=== PATIENT | female | born 1950 | race Caucasian/White ===

== ENCOUNTER 2016-12-02 11:03 | Inpatient (IN) | payer MEDICARE, OTHER, MEDICAID ==
[~2016-12-02] VITALS: Ht 162.6 cm; Wt 67.1 kg
[~2016-12-02 11:03] MED LIST: ACIDOPHILUS100 MG PO; ALBU2.5V4 NEB; ALPR.25T PO; ALPR0.254 PO; AZIT-21 PO; BRIM5DRO OP; BRIM5DRO OS; CALC-671 PO; CALC-685 PO; CARB100C4 PO; CARB100T6 PO; CARB200T PO; CARB200T6 PO; CEFD300C PO; CEFD300C16 PO; CLIN-81 PO; COMBIGAN OU; CPR500T PO; CRAN1CAP3 PO; CRB100CT PO; CRB200T PO; DEXA4VIA39 IM; DILT90TA PO; ESCI10TA48 PO; ESCI10TA55 PO; ESCI5TAB PO; ESCT10T PO; ESOM20CA PO; ESOM20SU PO; FLDR.1T PO; FLT05NA16 PO; FLUT16SP22 NS; FNT25TD; GUAI1TBM7 PO; HYDR10TA13 PO; HYDR20TA2 PO; HYDR20TA3 PO; HYDR5TAB2 PO; IMMU10VI14 SQ; KCL10CCR PO; KETO120S5; LACT1CAP45 PO; LACT1CAP69 PO; LEVO500T2 PO; LORA10TA7 PO; LRT10T PO; LTN005OP2 OP; LTN005OP2 OU; LYRICA; MAGN-47 PO; METH80VI IM; MICRO K PO; MORPHINE IM; MULT-608 PO; MULTI VIT PO; NAPR220C PO; NAPR220T66 PO; NAPR250T2 PO; NF-CARBAMX PO; NFTRIAZ.25 PO; NITR-65 PO; NYST15CR TOP; OMEP40CA36 PO; ONDA4TAB11 PO; ONDA8TAB13 PO; ONDA8TAB6 PO; ONDN4T PO; OXYB5TAB9 PO; OXYC-272 PO; OXYC-465 PO; PHEN100T17 PO; POLY17PO23 GT; POLY17PO23 PO; POTA10CA43 PO; PRED5SOL PO; RISE150T PO; SIME40DR PO; SIME80TA6 PO; [UNRECOGNIZED DRUG - OTHER]
[2016-12-02] MEDS ORDERED: ESCI10TA PO (11:37)
[2016-12-02] MEDS ORDERED: NS IV 1000 ML 1,000 ML IV ONE ×2 (11:40→13:18)
[2016-12-02 11:47] LABS: BASOPHILS % (AUTO) 0 % (0-10); EOSINOPHILS % (AUTO) 0 % (0-10); LYMPHOCYTES # (AUTO) 1.1 X 10^3 (1.0-4.0); LYMPHOCYTES % (AUTO) 9 % (12-44); MEAN CORPUSCULAR HEMOGLOBIN 23 PG (25-34); MEAN CORPUSCULAR HGB CONC 30 G/DL (32-36); MEAN CORPUSCULAR VOLUME 76 FL (80-99); MEAN PLATELET VOLUME 9.1 FL (7.4-10.4); MONOCYTES # (AUTO) 1.2 X 10^3 (0.0-1.0); MONOCYTES % (AUTO) 10 % (0-12); NEUTROPHILS # (AUTO) 9.2 X 10^3 (1.8-7.8); NEUTROPHILS % (AUTO) 80 % (42-75); PLATELET COUNT 481 10^3/uL (130-400); RED BLOOD COUNT 4.61 10^6/uL (4.35-5.85); RED CELL DISTRIBUTION WIDTH 19.3 % (10.0-14.5); WHITE BLOOD COUNT 11.5 10^3/uL (4.3-11.0)
[2016-12-02 11:50] LABS: BILIRUBIN,URINE NEGATIVE (NEGATIVE); KETONES,URINE 2+ (NEGATIVE); NITRITE,URINE NEGATIVE (NEGATIVE); PH,URINE 6.5 (5-9); PROTEIN,URINE 3+ (NEGATIVE); UROBILINOGEN,URINE 1 MG/DL (NORMAL)
[2016-12-02 11:51] LABS: INR 1.1 (0.8-1.4); PROTHROMBIN TIME PATIENT 13.9 SEC (12.2-14.7)
[2016-12-02 12:01] LABS: WBC,URINE >100 /HPF
[2016-12-02 12:02] LABS: ALANINE AMINOTRANSFERASE 43 U/L (0-55); ALBUMIN 3.8 G/DL (3.2-4.5); ANION GAP 12 MMOL/L (5-14); ASPARTATE AMINO TRANSFERASE 33 U/L (5-34); BILIRUBIN,TOTAL 0.3 MG/DL (0.1-1.0); BLOOD UREA NITROGEN 21 MG/DL (7-18); BUN/CREATININE RATIO 33; CALCIUM 9.2 MG/DL (8.5-10.1); CARBON DIOXIDE 23 MMOL/L (21-32); CHLORIDE 102 MMOL/L (98-107); CREATININE SERUM 0.64 MG/DL (0.60-1.30); GFR ESTIMATED > 60; GLUCOSE 121 MG/DL (70-105); LEUKOCYTE ESTERASE ,URINE 3+ (NEGATIVE); POTASSIUM 4.4 MMOL/L (3.6-5.0); SODIUM 137 MMOL/L (135-145); SQUAMOUS EPITHELIAL CELL,UR RARE /HPF
--- NOTE | 2016-12-02 12:02 | Diagnostic Imaging Report ---
INDICATION: Reduced O2 sats and weakness. COMPARISON: 06/16/2016. FINDINGS: Upright portable view of the chest is obtained. Right Port-A-Cath is unchanged. Heart size is upper limits of normal. There is no central venous congestion or evidence of failure. There is no pneumothorax or pleural fluid suspected. The lungs are clear. IMPRESSION: No acute cardiopulmonary abnormality is demonstrated. Dictated by: Dictated on workstation # [id number]
[2016-12-02 12:08] LABS: TROPONIN I < 0.30 NG/ML (<0.30)
[2016-12-02] MEDS ORDERED: LEVOFLOXACIN 750 MG/150 ML IV 150 ML IV STA (13:18)
--- NOTE | 2016-12-02 13:38 | ED General ---
General Chief Complaint: General Problems/Pain Stated Complaint: WEAKNESS Nursing Triage Note: GENERALIZED WEAKNESS Nursing Sepsis Screen: Possible Sepsis Risk Source of Information: Patient Exam Limitations: No Limitations History of Present Illness Time Seen by Provider: 13:37 Initial Comments 66-year-old female patient presents to the emergency department for complaints of generalized weakness. Denies fever, nausea, vomiting. Patient has a history of hypoxic brain injury several years ago. Timing/Duration: 2-3 Days, Getting Worse Allergies and Home Medications Allergies Coded Allergies: Penicillins (Unverified Allergy, Mild, PT ABLE TO TOLERATE ROCEPHIN, 06/01) oxycodone (Unverified Allergy, Mild, 06/19/06) adhesive (Unverified Allergy, Unknown, 01/06/14) codeine (Verified Allergy, Unknown, 04/19/15) hydrocodone (Verified Allergy, Unknown, 05/31/12) lanolin (Verified Allergy, Unknown, 05/31/12) sulfamethoxazole (Verified Allergy, Unknown, 05/31/12) trimethoprim (Verified Allergy, Unknown, 05/31/12) enoxaparin (Unverified Adverse Reaction, Mild, CHANGES IN MENTATION, ) latex (Unverified Adverse Reaction, Mild, BLADDER INFECTION W/ LATEX CATHETER, 09/23/10) Uncoded Allergies: TEGADERM (Allergy, Mild, RASH, 09/23/10) HEPARIN (Adverse Reaction, Mild, CHANGES IN MENTATION, 09/23/10) Home Medications Albuterol Sulfate 0.83 Mg/Ml Solution, 2.5 MG NEB BID, (Reported) Alprazolam 0.25 Mg Tablet, 0.25 MG PO TID PRN for ANXIETY, (Reported) Brimonidine Tartrate/Timolol 5 Ml Drops, 1 DROP OS BID, (Reported) Calcium Carbonate/Vitamin D3 1 Each Tablet, 1 TAB PO DAILY, (Reported) Carbamazepine 100 Mg Tab, 200 MG PO 0500,2000, (Reported) TAKES 2 (100MG) TABLETS Carbamazepine 100 Mg Tab, 100 MG PO 1200,1700, (Reported) Cranberry Conc/Ascorbic Acid 1 Each Capsule, 1 CAP PO DAILY, (Reported) Dexamethasone Sod Phosphate 4 Mg/1 Ml Vial, 4 MG IM MONTHLY, (Reported) Diltiazem HCl 90 Mg Tablet, 90 MG PO TID, (Reported) Escitalopram Oxalate 10 Mg Tablet, 10 MG PO 1600, (Reported) Fludrocortisone Acetate 0.1 Mg Tab, 0.2 MG PO DAILY, (Reported) TAKES 2 (0.1MG) TABLETS Fluticasone Propionate 16 Gm Naspr, 2 SPRAY NS DAILY, (Reported) Guaifenesin/Dextromethorphan 1 Each Tab, 1 TAB PO 0500,1600, (Reported) Hydrocortisone 20 Mg Tablet, 20 MG PO 0800, (Reported) Hydrocortisone 20 Mg Tablet, 10 MG PO 1600, (Reported) TAKES 1/2 (20MG) TABLET Immune Globulin,Gamma(IgG) 10 Gm/50 Ml Vial, 10 GM SQ WEEK, (Reported) WEEKLY EVERY SUNDAY INFUSE OVER 1 HOUR VIA PUMP Lactobacillus Acidophilus 1 Each Capsule, 1 CAP PO 1200, (Reported) Loratadine 10 Mg Tablet, 10 MG PO DAILY, (Reported) Methylprednisolone Acetate 80 Mg/1 Ml Vial, 80 MG IM MONTHLY, (Reported) Multivitamins 1 Tab Tablet, 1 TAB PO HS, (Reported) Naproxen Sodium 220 Mg Tablet, 220 MG PO Q8H PRN for PAIN, (Reported) Omeprazole 40 Mg Capsule.dr, 40 MG PO DAILY, (Reported) Ondansetron 4 Mg Tab.rapdis, 4 MG PO Q8H PRN for NAUSEA, (Reported) Oxycodone HCl/Acetaminophen 1 Each Tablet, 1 TAB PO Q4H PRN for PAIN, (Reported) Polyethylene Glycol 17 Gm Pack, 17 GM PO DAILY, (Reported) Potassium Chloride 10 Meq Capsule.er, 10 MEQ PO QID, (Reported) Risedronate Sodium 150 Mg Tablet, 150 MG PO DAILY, (Reported) AROUND THE OF THE MONTH Constitutional: No chills, No diaphoresis, No fever, malaise, weakness EENTM: no symptoms reported Respiratory: cough, phlegm (clear sputum production), short of breath Cardiovascular: No chest pain, No palpitations Gastrointestinal: No abdominal pain, No nausea, No vomiting Genitourinary: no symptoms reported Musculoskeletal: no symptoms reported Skin: no symptoms reported Psychiatric/Neurological: No Symptoms Reported All Other Systems Reviewed Negative Unless Noted: Yes (Negative excepted noted.) Past Qnkqbtq-Gtovmt-Zpvtzw Hx Patient Social History Alcohol Use: Denies Use Recreational Drug Use: No Smoking Status: Never a Smoker 2nd Hand Smoke Exposure: No Recent Foreign Travel: No Contact w/Someone Who Travel: No Recent Infectious Disease Expo: No Recent Hopitalizations: No Immunizations Up To Date Tetanus Booster (TDap): Unknown PED Vaccines UTD: No Date of Pneumonia Vaccine: Dec 07, 2009 Date of Influenza Vaccine: Mar 09, 2016 Seasonal Allergies Seasonal Allergies: No Surgeries HX Surgeries: Yes (BRAIN, PEG TUBE, suprapubic catheter, BROKEN LEG PLATES/ SCREWS) Surgeries: Orthopedic, Tracheostomy, Urinary Diversion Respiratory Hx Respiratory Disorders: Yes (HAS CPAP-GETTING USED TO WEARING IT, CHRONIC RESPIRATORY INSUFFICIENCY) Respiratory Disorders: Pneumonia, Chronic Bronchitis, Sleep Apnea Cardiovascular Hx Cardiac Disorders: Yes Cardiac Disorders: Hypertension Neurological Hx Neurological Disorders: Yes (ANOXIC BRAIN INJURY, TRIGEMINAL NERVE PAIN) Neurological Disorders: Stroke Reproductive System : No Hx Reproductive Disorders: No Sexually Transmitted Disease: No HIV/AIDS: No Female Reproductive Disorders: Denies RELIGION DEPARTMENT CHAIR History: Menopausal Genitourinary Hx Genitourinary Disorders: Yes (SUPRAPUBIC CATHETER) Genitourinary Disorders: Bladder Infection, UTI-Chronic Gastrointestinal Hx Gastrointestinal Disorders: Yes (Dysphagia) Gastrointestinal Disorders: Gastroesophageal Reflux, Chronic Constipation Musculoskeletal Hx Musculoskeletal Disorders: Yes (L LEG FX, TOTAL CARE AFTER ANOXIC SPELL) Musculoskeletal Disorders: Osteoporosis, Fractures Endocrine Hx Endocrine Disorders: No Endocrine Disorders: Adrenal Disease HEENT HX ENT Disorders: Yes (TRIGEMINAL NERVE PROBLEMS/ SWALLOWING PROBLEMS AT TIMES) Loss of Vision: Bilateral Hearing Impairment: Denies Cancer Hx Cancer: No Psychosocial Hx Psychiatric Problems: Yes (XANAX-NOT VERY OFTEN) Behavioral Health Disorders: Anxiety, Depression Integumentary HX Skin/Integumentary Disorder: No Blood Transfusions Hx Blood Disorders: Yes (immunoglobulin deficiency) Adverse Reaction to a Blood Tr: No Reviewed Nursing Assessment Reviewed/Agree w Nursing PMH: Yes Family Medical History Significant Family History: No Pertinent Family Hx Physical Exam Vital Signs Vital Sign - Last 12Hours 12/02/16 12/02/16 11:22 11:30 Temp 98.2 Pulse 101 Resp 18 B/P (MAP) 140/82 Pulse Ox 92 O2 Delivery Nasal Cannula O2 Flow Rate 3.00 Capillary Refill : Less Than 3 Seconds General Appearance: No Apparent Distress, Chronically ill HEENT: PERRL/EOMI, Pharynx Normal Neck: Normal Inspection, Supple Respiratory: No Accessory Muscle Use, No Respiratory Distress, Expiration, Inspiration, Other (coarse BS bilaterally.) Cardiovascular: No Edema, No Murmur, Normal Peripheral Pulses, Tachycardia Gastrointestinal: Normal Bowel Sounds, Non Tender, Soft, No Distended Extremity: Normal Capillary Refill, No Pedal Edema Neurologic/Psychiatric: Alert, Oriented x3, Normal Mood/Affect Skin: Normal Color, Warm/Dry, Ecchymosis (scattered bruises noted on the BLE and BUE in various stages of healing.) Focused Exam Lactic Acid Level Progress/Results/Core Measures Results/Orders Lab Results Laboratory Tests Test 12/02/16 11:22 12/02/16 16:08 Range/Units White Blood Count 11.5 H 10.3 4.3-11.0 10^3/uL Red Blood Count 4.61 4.05 L 4.35-5.85 10^6/uL Hemoglobin 10.6 L 9.3 L 11.5-16.0 G/DL Hematocrit 35 32 L 35-52 % Mean Corpuscular Volume 76 L 78 L 80-99 FL Mean Corpuscular Hemoglobin 23 L 23 L 25-34 PG Mean Corpuscular Hemoglobin Concent 30 L 30 L 32-36 G/DL Red Cell Distribution Width 19.3 H 18.9 H 10.0-14.5 % Platelet Count 481 H 432 H 130-400 10^3/uL Mean Platelet Volume 9.1 9.3 7.4-10.4 FL Neutrophils (%) (Auto) 80 H 75 42-75 % Lymphocytes (%) (Auto) 9 L 16 12-44 % Monocytes (%) (Auto) 10 9 0-12 % Eosinophils (%) (Auto) 0 0 0-10 % Basophils (%) (Auto) 0 0 0-10 % Neutrophils # (Auto) 9.2 H 7.7 1.8-7.8 X 10^3 Lymphocytes # (Auto) 1.1 1.7 1.0-4.0 X 10^3 Monocytes # (Auto) 1.2 H 0.9 0.0-1.0 X 10^3 Eosinophils # (Auto) 0.0 0.0 0.0-0.3 10^3/uL Basophils # (Auto) 0.0 0.0 0.0-0.1 10^3/uL Prothrombin Time 13.9 12.2-14.7 SEC INR Comment 1.1 0.8-1.4 Activated Partial Thromboplast Time 22 L 24-35 SEC Urine Color YELLOW Urine Clarity VERY CLOUDY H Urine pH 6.5 5-9 Urine Specific [place] 1.015 L 1.016-1.022 Urine Protein 3+ H NEGATIVE Urine Glucose (UA) NEGATIVE NEGATIVE Urine Ketones 2+ H NEGATIVE Urine Nitrite NEGATIVE NEGATIVE Urine Bilirubin NEGATIVE NEGATIVE Urine Urobilinogen 1 NORMAL MG/DL Urine Leukocyte Esterase 3+ H NEGATIVE Urine RBC (Auto) 5+ H NEGATIVE Urine RBC 10-25 H /HPF Urine WBC >100 H /HPF Urine Squamous Epithelial Cells RARE /HPF Urine Crystals NONE /LPF Urine Bacteria MODERATE H /HPF Urine Casts NONE /LPF Urine Mucus NEGATIVE /LPF Urine Culture Indicated YES Sodium Level 137 135-145 MMOL/L Potassium Level 4.4 3.6-5.0 MMOL/L Chloride Level 102 98-107 MMOL/L Carbon Dioxide Level 23 21-32 MMOL/L Anion Gap 12 5-14 MMOL/L Blood Urea Nitrogen 21 H 7-18 MG/DL Creatinine 0.64 0.60-1.30 MG/DL Estimat Glomerular Filtration Rate > 60 BUN/Creatinine Ratio 33 Glucose Level 121 H 70-105 MG/DL Lactic Acid Level 1.13 0.50-2.00 MMOL/L Calcium Level 9.2 8.5-10.1 MG/DL Total Bilirubin 0.3 0.1-1.0 MG/DL Aspartate Amino Transf (AST/SGOT) 33 5-34 U/L Alanine Aminotransferase (ALT/SGPT) 43 0-55 U/L Alkaline Phosphatase 87 40-136 U/L Troponin I < 0.30 <0.30 NG/ML Total Protein 7.0 6.4-8.2 G/DL Albumin 3.8 3.2-4.5 G/DL Cindy Pastor - [facility] PA Cbc With Automated Diff (12/02/16 11:40) Comprehensive Metabolic Panel (12/02/16 11:40) Lactic Acid Analyzer (12/02/16 11:40) Blood Culture (12/02/16 11:40) Sputum Culture (12/02/16 11:40) Ua Culture If Indicated (12/02/16 11:40) Protime With Inr (12/02/16 11:40) Partial Thromboplastin Time (12/02/16 11:40) Chest 1 View, Ap/Pa Only (12/02/16 11:40) O2 (12/02/16 11:40) Saline Lock/Iv-Start (12/02/16 11:40) Saline Lock/Iv-Start (12/02/16 11:40) Ekg Tracing (12/02/16 11:40) Troponin I (12/02/16 11:40) Vital Signs Adult Sepsis Patie Q1HR (12/02/16 11:40) Remove Rings In Anticipation O (12/02/16 11:40) Ns Iv 1000 Ml (Sodium Chloride 0.9%) (12/02/16 11:40) Urine Culture (12/02/16 11:22) Ns Iv 1000 Ml (Sodium Chloride 0.9%) (12/02/16 13:18) Levofloxacin 750 Mg/150 Ml Iv (Levaquin (12/02/16 13:18) Albuterol/Ipra Inhalation Soln (Duoneb I (12/02/16 13:45) Svn Sm Volume Nebulizer Rt-Rfs (12/02/16 13:43) Medications Given in ED Current Medications Medications Dose Ordered Sig/Octavia Route Start Time Stop Time Status Last Admin Dose Admin Albuterol/ Ipratropium 3 ml ONCE ONCE INH 12/02/16 13:45 12/02/16 13:46 DC 12/02/16 14:08 3 ML Sodium Chloride 1,000 ml @ 0 mls/hr Q0M ONCE IV 12/02/16 13:18 12/02/16 13:19 DC 12/02/16 13:34 0 MLS/HR Vital Signs/I&O Vital Sign - Last 12Hours 12/02/16 12/02/16 12/02/16 12/02/16 14:09 14:33 16:02 16:13 Temp 98.8 98.4 Pulse 101 95 Resp 18 14 B/P (MAP) 137/84 Pulse Ox 96 95 97 O2 Flow Rate 2.00 2.00 2.00 2.00 12/02/16 12/02/16 12/02/16 12/02/16 16:42 20:28 21:00 21:31 Temp 97.3 Pulse 92 Resp 18 B/P (MAP) 124/86 Pulse Ox 92 94 95 O2 Flow Rate 2.00 2.00 2.00 12/03/16 00:00 Temp 97.4 Pulse 81 Resp 18 B/P (MAP) 95/51 Pulse Ox 90 O2 Flow Rate 2.00 Blood Pressure Mean: 102 ECG Initial ECG Impression Date: December 02, 2016 Initial ECG Impression Time: 12:17 Initial ECG Rate: 101 Initial ECG Rhythm: S.Tach Initial ECG Comparisson: Unchanged Comment Sinus tachycardia and LVH. No STEMI or arrhythmia noted. ECG reviewed by Dr. Hui. Diagnostic Imaging Diagonstic Imaging: Xray Plain Films/CT/US/NM/MRI: chest Comments FINDINGS: Upright portable view of the chest is obtained. Right Port-A-Cath is unchanged. Heart size is upper limits of normal. There is no central venous congestion or evidence of failure. There is no pneumothorax or pleural fluid suspected. The lungs are clear. IMPRESSION: No acute cardiopulmonary abnormality is demonstrated. Dictated by: Dictated on workstation # [id number] Reviewed: Reviewed by Me (radiology report reviewed) Departure Communication Time/Spoke to Admitting Phy: 14:[address] germain graciously accepts the patient to her internal medicine service for IV antibiotics, IV fluids, and further evaluation. Progress Notes All laboratory findings, diagnostic study findings, and plan for admission discussed with the patient and . Both voice understanding and agree with the treatment plan. Dr. Hui notified of plan for admission. Impression Impression: Primary Impression: UTI (urinary tract infection) Qualified Codes: N30.01 - Acute cystitis with hematuria Additional Impressions: Acute bronchitis Qualified Codes: J20.9 - Acute bronchitis, unspecified Volume depletion h/o hypoxic brain injury Disposition: 09 ADMITTED INPATIENT Condition: Stable Decision to Admit Reason: Admit from ER (General) Decision to Admit/Date: December 02, 2016 Time/Decision to Admit Time: 14:05 Departure-Patient Inst. Referrals: REBECA ESTEVEZ MD (PCP/Family) Primary Care Physician [facility] December 02, 2016 13:37
[2016-12-02] MEDS ORDERED: RT-ALBUTEROL/IPRATROPIUM 3 ML (DUONEB) VIAL INH ONE (13:45)
[2016-12-02] MEDS ORDERED: CATHETER FLUSH 10 ML SYR IV PRN (15:15)
[2016-12-02] MEDS ORDERED: ACETAMINOPHEN 325 MG TABLET/CAPLET (TYLENOL) PO PRN (15:15)
[2016-12-02] MEDS: ONDANSETRON 4 MG/2 ML (SDV) Z0FRAN IV SCH ×2 (15:28→22:14)
[2016-12-02] MEDS: NS W/KCL 20 MEQ/L 1,000 ML IV SCH (15:29)
[2016-12-02 16:13] VITALS: BP 137/84
[2016-12-02] MEDS ORDERED: RT-ALBUTEROL SULF 2.5 MG/3 ML PRE-MIX VIAL IH PRN (16:45)
[2016-12-02 16:51] LABS: BASOPHILS % (AUTO) 0 % (0-10); EOSINOPHILS % (AUTO) 0 % (0-10); LYMPHOCYTES # (AUTO) 1.7 X 10^3 (1.0-4.0); LYMPHOCYTES % (AUTO) 16 % (12-44); MEAN CORPUSCULAR HEMOGLOBIN 23 PG (25-34); MEAN CORPUSCULAR HGB CONC 30 G/DL (32-36); MEAN CORPUSCULAR VOLUME 78 FL (80-99); MEAN PLATELET VOLUME 9.3 FL (7.4-10.4); MONOCYTES # (AUTO) 0.9 X 10^3 (0.0-1.0); MONOCYTES % (AUTO) 9 % (0-12); NEUTROPHILS # (AUTO) 7.7 X 10^3 (1.8-7.8); NEUTROPHILS % (AUTO) 75 % (42-75); PLATELET COUNT 432 10^3/uL (130-400); RED BLOOD COUNT 4.05 10^6/uL (4.35-5.85); RED CELL DISTRIBUTION WIDTH 18.9 % (10.0-14.5); WHITE BLOOD COUNT 10.3 10^3/uL (4.3-11.0)
[2016-12-02] MEDS ORDERED: ALPRAZolam 0.25 MG (XANAX) TAB PO PRN (17:15)
[2016-12-02] MEDS ORDERED: PATIENT MAY USE OWN MEDS, ALL MC SCH (17:15)
[2016-12-02] MEDS: CARBAMAZEPINE 100 MG PO SCH ×2 (17:46→21:00)
[2016-12-02] MEDS: oxyCODONE/APAP 10/325MG (PERCOCET 10) TABLET PO PRN (19:00)
[2016-12-02 20:28] VITALS: BP 124/86
[2016-12-02] MEDS: DILTIAZEM 30 MG (CARDIZEM) TAB PO SCH (21:00)
[2016-12-02] MEDS: PROMETHAZINE INJ 25 MG/ML (PHENERGAN) AMP IVP PRN (21:01)
[2016-12-02] MEDS: TIMOLOL OS SCH (21:01)
[2016-12-02] MEDS: BRIMONIDINE TARTRATE OS SCH (21:01)
[2016-12-02] MEDS: RT-ALBUTEROL SULF 2.5 MG/3 ML PRE-MIX VIAL IH SCH (21:29)
[2016-12-03] VITALS: BP 95/51
[2016-12-03] MEDS: NS W/KCL 20 MEQ/L 1,000 ML IV SCH ×5 (01:58→23:59)
[2016-12-03 04:00] VITALS: BP 101/61
[2016-12-03] MEDS: CARBAMAZEPINE 100 MG PO SCH ×4 (04:39→20:24)
[2016-12-03] MEDS ORDERED: [UNRECOGNIZED DRUG - OTHER] PO SCH (05:00)
[2016-12-03] MEDS ORDERED: DEXTROMETHORPHAN PO SCH (05:00)
[2016-12-03] MEDS ORDERED: GUAIFENESIN PO SCH (05:00)
[2016-12-03 05:34] LABS: ALANINE AMINOTRANSFERASE 34 U/L (0-55); ALBUMIN 2.9 G/DL (3.2-4.5); ANION GAP 8 MMOL/L (5-14); ASPARTATE AMINO TRANSFERASE 29 U/L (5-34); BILIRUBIN,TOTAL 0.2 MG/DL (0.1-1.0); BLOOD UREA NITROGEN 13 MG/DL (7-18); BUN/CREATININE RATIO 27; CALCIUM 8.2 MG/DL (8.5-10.1); CARBON DIOXIDE 24 MMOL/L (21-32); CHLORIDE 110 MMOL/L (98-107); CREATININE SERUM 0.49 MG/DL (0.60-1.30); GFR ESTIMATED > 60; GLUCOSE 85 MG/DL (70-105); POTASSIUM 3.9 MMOL/L (3.6-5.0); SODIUM 142 MMOL/L (135-145); TOTAL PROTEIN 5.6 G/DL (6.4-8.2)
[2016-12-03] MEDS: ONDANSETRON 4 MG/2 ML (SDV) Z0FRAN IV SCH (06:09)
[2016-12-03] MEDS: RT-ALBUTEROL SULF 2.5 MG/3 ML PRE-MIX VIAL IH SCH ×3 (07:45→19:45)
[2016-12-03 08:00] VITALS: BP 160/90
[2016-12-03] MEDS: PROMETHAZINE INJ 25 MG/ML (PHENERGAN) AMP IVP PRN ×2 (08:34→17:30)
[2016-12-03] MEDS: TIMOLOL OS SCH ×2 (08:34→20:26)
[2016-12-03] MEDS: BRIMONIDINE TARTRATE OS SCH ×2 (08:34→20:26)
[2016-12-03] MEDS: DILTIAZEM 30 MG (CARDIZEM) TAB PO SCH ×3 (08:35→20:25)
[2016-12-03] MEDS ORDERED: LEVOFLOXACIN 750 MG/D5W 150 ML PRE-MIX IV SCH (11:00)
--- NOTE | 2016-12-03 11:56 | History & Physical-Hospitalist ---
HPI History of Present Illness: HPI/Chief Complaint CC: Hypoxia with UTI and bronchitis HPI: This is a 66-year-old white female of Dr. Still in [place] that is known to this examiner from prior hospitalizations on the hospitalist service due to UTI, sepsis and recurrent bronchitis. She presents the emergency room with altered mental status and decreased O2 saturation and mildly low blood pressure for the patient so she was worked up and found to have acute bronchitis on chronic bronchitis and acute on chronic UTI so she was placed empirically on antibiotics and placed on supportive care. She has a long-standing history of severe debility following choking on a hot dog many years ago and has been very debilitated and disabled since that time. She obtains care at home 29/01 and her is very involved in her care. She reports that she does have some mild pain in her back so I will initiate fentanyl IV as needed considering her allergies include codeine, hydrocodone and oxycodone. She has had multiple resistant bacteria causing UTIs and she is declining in such a way that she is having difficulty clearing her own secretions now. On Sunday she had her catheter changed, port flushed, infusion by Dr. Vera and a steroid shot. Currently I review all of her home medications resume most and will monitor closely in the meantime but I did note she is a full code and it is concerning considering her overall debilitated status we will need to child welfare counselor the family on that and maintain reasonable and supportive care. Source: patient, caregiver Exam Limitations: clinical condition Date Seen 12/03/16 Attending Physician Maite Burt John M MD Referring Physician Date of Admission December 02, 2016 at 14:10 Home Medications & Allergies Home Medications Reviewed patient Home Medication Reconciliation Form Allergies Allergies Coded Allergies Penicillins (Unverified Allergy, Mild, PT ABLE TO TOLERATE ROCEPHIN, 06/01/12) oxycodone (Unverified Allergy, Mild, 06/19/06) adhesive (Unverified Allergy, Unknown, 01/06/14) codeine (Verified Allergy, Unknown, 04/19/15) hydrocodone (Verified Allergy, Unknown, 05/31/12) lanolin (Verified Allergy, Unknown, 05/31/12) sulfamethoxazole (Verified Allergy, Unknown, 05/31/12) trimethoprim (Verified Allergy, Unknown, 05/31/12) enoxaparin (Unverified Adverse Reaction, Mild, CHANGES IN MENTATION, 09/23/10) latex (Unverified Adverse Reaction, Mild, BLADDER INFECTION W/ LATEX CATHETER , 09/23/10) Uncoded Allergies TEGADERM ( Allergy, Mild, RASH, 09/23/10) HEPARIN ( Adverse Reaction, Mild, CHANGES IN MENTATION, 09/23/10) Past Ibfricd-Kgfbhr-Hqokhj Hx Patient Social History Marrital Status: Employed/Student: retired Alcohol Use: Denies Use Recreational Drug Use: No Smoking Status: Never a Smoker 2nd Hand Smoke Exposure: No Physical Abuse Screen: No Sexual Abuse: No Recent Foreign Travel: No Contact w/other who traveled: No Recent Hopitalizations: No Recent Infectious Disease Expo: No Immunizations Up To Date Tetanus Booster (TDap): Unknown Date of Pneumonia Vaccine: Dec 07, 2009 Date of Influenza Vaccine: Mar 09, 2016 Seasonal Allergies Seasonal Allergies: No Surgeries HX Surgeries: Yes (BRAIN, PEG TUBE, suprapubic catheter, BROKEN LEG PLATES/ SCREWS) Surgeries: Orthopedic, Tracheostomy, Urinary Diversion Respiratory Hx Respiratory Disorders: Yes (HAS CPAP-GETTING USED TO WEARING IT, CHRONIC RESPIRATORY INSUFFICIENCY) Respiratory Disorders: Chronic Bronchitis, COPD, Pneumonia, Sleep Apnea Cardiovascular Hx Cardiovascular Disorders: Yes Cardiac Disorders: Hypertension Neurological Hx Neurological Disorders: Yes (ANOXIC BRAIN INJURY, TRIGEMINAL NERVE PAIN) Neurological Disorders: Stroke Reproductive System : No Hx Reproductive Disorders: No Sexually Transmitted Disease: No HIV/AIDS: No Female Reproductive Disorders: Denies Genitourinary Hx Genitourinary Disorders: Yes (SUPRAPUBIC CATHETER) Genitourinary Disorders: Bladder Infection, Neurogenic Bladder, UTI-Chronic Gastrointestinal Hx Gastrointestinal Disorders: Yes (Dysphagia) Gastrointestinal Disorders: Gastroesophageal Reflux, Chronic Constipation Musculoskeletal Hx Musculoskeletal Disorders: Yes (L LEG FX, TOTAL CARE AFTER ANOXIC SPELL) Musculoskeletal Disorders: Osteoporosis, Fractures Endocrine Hx Endocrine Disorders: No Endocrine Disorders: Adrenal Disease HEENT HX ENT Disorders: Yes (TRIGEMINAL NERVE PROBLEMS/ SWALLOWING PROBLEMS AT TIMES) Loss of Vision: Bilateral Hearing Impairment: Denies Cancer Hx Cancer: No Psychosocial Hx Psychiatric Problems: Yes (XANAX-NOT VERY OFTEN) Behavioral Health Disorders: Anxiety, Depression Integumentary HX Skin/Integumentary Disorder: No Blood Transfusions Hx Blood Disorders: Yes (immunoglobulin deficiency) Adverse Reaction to a Blood Tr: No Reviewed Nursing Assessment Reviewed/Agree w Nursing PMH: Yes Family Medical History Significant Family History: No Pertinent Family Hx Review of Systems Constitutional: see HPI, dizziness, weakness EENTM: no symptoms reported Respiratory: cough, short of breath Cardiovascular: no symptoms reported Gastrointestinal: nausea Genitourinary: no symptoms reported Musculoskeletal: back pain Skin: no symptoms reported Psychiatric/Neurological: Depressed All Other Systems Reviewed Negative Unless Noted: Yes Physical Exam Physical Exam Vital Signs Vital Sign - Last 12Hours 12/02/16 12/02/16 11:22 11:30 Temp 98.2 Pulse 101 Resp 18 B/P (MAP) 140/82 Pulse Ox 92 O2 Delivery Nasal Cannula O2 Flow Rate 3.00 Capillary Refill : Less Than 3 Seconds General Appearance: No Apparent Distress, WD/WN, Chronically ill, Other (neck leaned over to left side) Eyes: Bilateral Eye Normal Inspection, Bilateral Eye PERRL HEENT: PERRL/EOMI, Normal ENT Inspection, Pharynx Normal Neck: Normal Inspection, Non Tender, Supple, Carotid Bruit, Other (neck is contracted) Respiratory: Chest Non Tender, No Accessory Muscle Use, No Respiratory Distress , Crackles, Decreased Breath Sounds, Wheezing, Other (upper respiratory crackles ) Cardiovascular: Regular Rate, Rhythm, No Edema, No Gallop, No JVD, No Murmur, Normal Peripheral Pulses Gastrointestinal: Normal Bowel Sounds, No Organomegaly, No Pulsatile Mass, Non Tender, Soft Back: Normal Inspection, No CVA Tenderness, No Vertebral Tenderness Extremity: Normal Capillary Refill, Normal Inspection, Normal Range of Motion, Non Tender, No Calf Tenderness, No Pedal Edema Neurologic/Psychiatric: Alert, Oriented x3, No Motor/Sensory Deficits, Depressed Affect Skin: Normal Color, Warm/Dry Lymphatic: No Adenopathy Results Results/Procedures Lab Laboratory Tests 12/02/16 11:22 12/02/16 16:08 12/03/16 04:37 Assessment/Plan Admission Diagnosis Assessment: Altered mental status with hypoxia and SIRS Hx of resistant organism UTI with suprapubic catheter 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 Clinical Quality Measures DVT/VTE Risk/Contraindication: Risk Factor Score Per Nursin RFS Level Per Nursing on Admit: 4+=Very High MAITE BURT DO December 03, 2016 11:56
[2016-12-03 12:00] VITALS: BP 164/95
[2016-12-03] MEDS: fentaNYL INJECTION 100 MCG/2 ML AMP IVP PRN ×3 (12:14→16:46)
[2016-12-03] MEDS ORDERED: NAPROXEN 250 MG (NAPROSYN) TABLET PO PRN (12:30)
[2016-12-03] MEDS: LACTOBACILLUS Acidoph/Bulgar (LACTINEX/FLORANEX) TAB PO SCH (13:10)
[2016-12-03] MEDS: MEROPENEM 500 MG in NS (IVPB) 100 ML IV SCH ×3 (13:10→23:59)
[2016-12-03] MEDS: ONDANSETRON 4 MG (ZOFRAN) ORAL DISSOLVE TAB PO PRN (14:05)
[2016-12-03 16:10] VITALS: BP 108/74
[2016-12-03] MEDS: HYDROCORTISONE 20 MG (CORTEF) TAB PO SCH (16:46)
[2016-12-03] MEDS: KCL 10 MEQ TAB (MICRO K) PO SCH ×2 (16:46→20:25)
[2016-12-03 19:40] VITALS: BP 129/69
[2016-12-03] MEDS: MULTIVIT W/MINERALS TAB (THERAGRAN M) PO SCH (20:26)
[2016-12-03] MEDS ORDERED: RT-ALBUTEROL SULF 2.5 MG/3 ML PRE-MIX VIAL IH SCH (21:00)
[2016-12-04] VITALS (7 sets, daily range): BP systolic 101–158; BP diastolic 62–87
[2016-12-04] MEDS: PANTOPRAZOLE 40 MG (PROTONIX) TAB PO SCH (05:43)
[2016-12-04] MEDS: MEROPENEM 500 MG in NS (IVPB) 100 ML IV SCH ×3 (05:43→17:03)
[2016-12-04] MEDS: CARBAMAZEPINE 100 MG PO SCH ×4 (05:44→19:26)
[2016-12-04 06:22] LABS: BASOPHILS % (AUTO) 0 % (0-10); EOSINOPHILS # (AUTO) 0.1 10^3/uL (0.0-0.3); EOSINOPHILS % (AUTO) 1 % (0-10); LYMPHOCYTES # (AUTO) 2.3 X 10^3 (1.0-4.0); LYMPHOCYTES % (AUTO) 21 % (12-44); MEAN CORPUSCULAR HEMOGLOBIN 23 PG (25-34); MEAN CORPUSCULAR HGB CONC 30 G/DL (32-36); MEAN CORPUSCULAR VOLUME 79 FL (80-99); MEAN PLATELET VOLUME 8.4 FL (7.4-10.4); MONOCYTES # (AUTO) 0.8 X 10^3 (0.0-1.0); MONOCYTES % (AUTO) 8 % (0-12); NEUTROPHILS # (AUTO) 7.5 X 10^3 (1.8-7.8); NEUTROPHILS % (AUTO) 70 % (42-75); PLATELET COUNT 375 10^3/uL (130-400); RED BLOOD COUNT 3.86 10^6/uL (4.35-5.85); RED CELL DISTRIBUTION WIDTH 19.2 % (10.0-14.5); WHITE BLOOD COUNT 10.8 10^3/uL (4.3-11.0)
[2016-12-04 06:43] LABS: ALANINE AMINOTRANSFERASE 49 U/L (0-55); ALBUMIN 2.9 G/DL (3.2-4.5); ANION GAP 7 MMOL/L (5-14); ASPARTATE AMINO TRANSFERASE 43 U/L (5-34); BILIRUBIN,TOTAL 0.2 MG/DL (0.1-1.0); BLOOD UREA NITROGEN 13 MG/DL (7-18); BUN/CREATININE RATIO 25; CALCIUM 8.1 MG/DL (8.5-10.1); CARBON DIOXIDE 24 MMOL/L (21-32); CHLORIDE 111 MMOL/L (98-107); CREATININE SERUM 0.51 MG/DL (0.60-1.30); GFR ESTIMATED > 60; GLUCOSE 87 MG/DL (70-105); POTASSIUM 3.6 MMOL/L (3.6-5.0); SODIUM 142 MMOL/L (135-145); TOTAL PROTEIN 5.6 G/DL (6.4-8.2)
[2016-12-04] MEDS: RT-ALBUTEROL SULF 2.5 MG/3 ML PRE-MIX VIAL IH SCH ×3 (07:17→21:06)
[2016-12-04] MEDS: NS W/KCL 20 MEQ/L 1,000 ML IV SCH (07:56)
[2016-12-04] MEDS: TIMOLOL OS SCH ×2 (08:09→21:46)
[2016-12-04] MEDS: BRIMONIDINE TARTRATE OS SCH ×2 (08:09→21:46)
[2016-12-04] MEDS: HYDROCORTISONE 20 MG (CORTEF) TAB PO SCH ×2 (08:10→15:54)
[2016-12-04] MEDS: POLYETHYLENE GLYCOL 17 GM (MIRALAX) PACK PO SCH (08:10)
[2016-12-04] MEDS: CALCIUM CARB + VIT D 600 MG (CALCARB + D) TAB PO SCH (08:10)
[2016-12-04] MEDS: DILTIAZEM 30 MG (CARDIZEM) TAB PO SCH ×3 (08:10→21:46)
[2016-12-04] MEDS: fentaNYL INJECTION 100 MCG/2 ML AMP IVP PRN ×6 (08:10→19:26)
[2016-12-04] MEDS: ONDANSETRON 4 MG (ZOFRAN) ORAL DISSOLVE TAB PO PRN (08:11)
[2016-12-04] MEDS: KCL 10 MEQ TAB (MICRO K) PO SCH ×4 (08:11→21:46)
[2016-12-04] MEDS: LORATADINE (CLARITIN) 10 MG TAB PO SCH (08:11)
[2016-12-04] MEDS: FLUDROCORTISONE 0.1 MG (FLORINEF) TAB PO SCH (08:11)
[2016-12-04] MEDS: FLUTICASONE NASAL SPRAY (FLONASE) 16 GM BTL NS SCH (08:17)
--- NOTE | 2016-12-04 10:19 | Progress Note-Hospitalist ---
Progress Note HPI/CC on Admission CC: Hypoxia with UTI and bronchitis HPI: This is a 66-year-old white female of Dr. Still in [place] that is known to this examiner from prior hospitalizations on the hospitalist service due to UTI, sepsis and recurrent bronchitis. She presents the emergency room with altered mental status and decreased O2 saturation and mildly low blood pressure for the patient so she was worked up and found to have acute bronchitis on chronic bronchitis and acute on chronic UTI so she was placed empirically on antibiotics and placed on supportive care. She has a long-standing history of severe debility following choking on a hot dog many years ago and has been very debilitated and disabled since that time. She obtains care at home 29/01 and her is very involved in her care. She reports that she does have some mild pain in her back so I will initiate fentanyl IV as needed considering her allergies include codeine, hydrocodone and oxycodone. She has had multiple resistant bacteria causing UTIs and she is declining in such a way that she is having difficulty clearing her own secretions now. On Sunday she had her catheter changed, port flushed, infusion by Dr. Vera and a steroid shot. Currently I review all of her home medications resume most and will monitor closely in the meantime but I did note she is a full code and it is concerning considering her overall debilitated status we will need to certified alcohol and drug counselor the family on that and maintain reasonable and supportive care. Progress Notes/Assess & Plan Date Seen 12/04/16 Admission Dx/Process Assessment: Altered mental status with hypoxia and SIRS Hx of resistant organism UTI with suprapubic catheter History of anoxic brain injury after she choked on a hot dog in 2009 and has been bedridden and wheelchair bound since that time Obstructive sleep apnea on CPAP therapy Leukocytosis Fever Trigeminal neuralgia Diagonsis/Assessment & Plan Patient doing a little better but overall decline is noted Nurse actually heard her say that she would like to be just kept comfortable and allowed to pass that her told the nurse that he was just not ready at this time Full code is concerning considering the futility of aggressive treatment like intubation if that should occur and respiratory failure status Lungs continuously sound worse but overall's no significant change Reviewed urine culture and had placed her on meropenem yesterday so discontinue the Levaquin due to resistance and enterococcus should be sensitive to penicillin sensitive enterococcus No fever, vital signs stable, chronically ill, alert, oriented 3 Regular rate and rhythm, coarseness throughout all banks No edema Laboratory Tests 12/04/16 06:10 Assessment: Altered mental status with hypoxia and SIRS improved with aggressive treatment Hx of resistant organism UTI with suprapubic catheter added Meropenem yesterday and will DC Levaquin today since resistance pattern History of anoxic brain injury after she choked on a hot dog in 2009 and has been bedridden and wheelchair bound since that time Obstructive sleep apnea on CPAP therapy Leukocytosis Fever Trigeminal neuralgia 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
[2016-12-04] MEDS: LACTOBACILLUS Acidoph/Bulgar (LACTINEX/FLORANEX) TAB PO SCH (11:43)
[2016-12-04] MEDS: oxyCODONE/APAP 10/325MG (PERCOCET 10) TABLET PO PRN (13:00)
[2016-12-04] MEDS: MULTIVIT W/MINERALS TAB (THERAGRAN M) PO SCH (21:47)
[2016-12-05] MEDS: MEROPENEM 500 MG in NS (IVPB) 100 ML IV SCH ×3 (00:01→12:03)
[2016-12-05 03:59] VITALS: BP 156/90
[2016-12-05] MEDS: CARBAMAZEPINE 100 MG PO SCH ×2 (05:58→12:04)
[2016-12-05] MEDS: PANTOPRAZOLE 40 MG (PROTONIX) TAB PO SCH (06:04)
[2016-12-05 06:08] LABS: BASOPHILS % (AUTO) 0 % (0-10); EOSINOPHILS # (AUTO) 0.1 10^3/uL (0.0-0.3); EOSINOPHILS % (AUTO) 1 % (0-10); LYMPHOCYTES # (AUTO) 2.4 X 10^3 (1.0-4.0); LYMPHOCYTES % (AUTO) 23 % (12-44); MEAN CORPUSCULAR HEMOGLOBIN 23 PG (25-34); MEAN CORPUSCULAR HGB CONC 29 G/DL (32-36); MEAN CORPUSCULAR VOLUME 79 FL (80-99); MEAN PLATELET VOLUME 8.7 FL (7.4-10.4); MONOCYTES # (AUTO) 0.9 X 10^3 (0.0-1.0); MONOCYTES % (AUTO) 8 % (0-12); NEUTROPHILS # (AUTO) 7.1 X 10^3 (1.8-7.8); NEUTROPHILS % (AUTO) 68 % (42-75); PLATELET COUNT 390 10^3/uL (130-400); RED BLOOD COUNT 3.95 10^6/uL (4.35-5.85); RED CELL DISTRIBUTION WIDTH 19.2 % (10.0-14.5); WHITE BLOOD COUNT 10.5 10^3/uL (4.3-11.0)
[2016-12-05 06:35] LABS: ALANINE AMINOTRANSFERASE 48 U/L (0-55); ALBUMIN 2.9 G/DL (3.2-4.5); ANION GAP 8 MMOL/L (5-14); ASPARTATE AMINO TRANSFERASE 39 U/L (5-34); BILIRUBIN,TOTAL 0.2 MG/DL (0.1-1.0); BLOOD UREA NITROGEN 12 MG/DL (7-18); BUN/CREATININE RATIO 24; CALCIUM 8.8 MG/DL (8.5-10.1); CARBON DIOXIDE 28 MMOL/L (21-32); CHLORIDE 106 MMOL/L (98-107); CREATININE SERUM 0.49 MG/DL (0.60-1.30); GFR ESTIMATED > 60; GLUCOSE 86 MG/DL (70-105); POTASSIUM 3.4 MMOL/L (3.6-5.0); SODIUM 142 MMOL/L (135-145); TOTAL PROTEIN 5.8 G/DL (6.4-8.2)
[2016-12-05] MEDS: RT-ALBUTEROL SULF 2.5 MG/3 ML PRE-MIX VIAL IH SCH (06:47)
[2016-12-05] MEDS: fentaNYL INJECTION 100 MCG/2 ML AMP IVP PRN (07:00)
[2016-12-05] MEDS: ONDANSETRON 4 MG (ZOFRAN) ORAL DISSOLVE TAB PO PRN (07:47)
[2016-12-05 08:00] VITALS: BP 164/90
--- NOTE | 2016-12-05 09:16 | Pulmonary Consultation ---
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 She was dx with acute bronchitis and UTI. CXR is clear She was placed on emperic Abx and admitted to 4th floor. She has had many prior episodes however she has been doing much better since starting IVIG. I am consulted for pulmonary management. Allergies and Home Medications Allergies Coded Allergies: Penicillins (Unverified Allergy, Mild, PT ABLE TO TOLERATE ROCEPHIN, 06/01) oxycodone (Unverified Allergy, Mild, 06/19/06) adhesive (Unverified Allergy, Unknown, 01/06/14) codeine (Verified Allergy, Unknown, 04/19/15) hydrocodone (Verified Allergy, Unknown, 05/31/12) lanolin (Verified Allergy, Unknown, 05/31/12) sulfamethoxazole (Verified Allergy, Unknown, 05/31/12) trimethoprim (Verified Allergy, Unknown, 05/31/12) enoxaparin (Unverified Adverse Reaction, Mild, CHANGES IN MENTATION, ) latex (Unverified Adverse Reaction, Mild, BLADDER INFECTION W/ LATEX CATHETER, 09/23/10) Uncoded Allergies: TEGADERM (Allergy, Mild, RASH, 09/23/10) HEPARIN (Adverse Reaction, Mild, CHANGES IN MENTATION, 09/23/10) Home Medications Albuterol Sulfate 0.83 Mg/Ml Solution, 2.5 MG NEB BID, (Reported) Alprazolam 0.25 Mg Tablet, 0.25 MG PO TID PRN for ANXIETY, (Reported) Brimonidine Tartrate/Timolol 5 Ml Drops, 1 DROP OS BID, (Reported) Calcium Carbonate/Vitamin D3 1 Each Tablet, 1 TAB PO DAILY, (Reported) Carbamazepine 100 Mg Tab, 200 MG PO 0500,2000, (Reported) TAKES 2 (100MG) TABLETS Carbamazepine 100 Mg Tab, 100 MG PO 1200,1700, (Reported) Cranberry Conc/Ascorbic Acid 1 Each Capsule, 1 CAP PO DAILY, (Reported) Dexamethasone Sod Phosphate 4 Mg/1 Ml Vial, 4 MG IM MONTHLY, (Reported) Diltiazem HCl 90 Mg Tablet, 90 MG PO TID, (Reported) Escitalopram Oxalate 10 Mg Tablet, 10 MG PO 1600, (Reported) Fludrocortisone Acetate 0.1 Mg Tab, 0.2 MG PO DAILY, (Reported) TAKES 2 (0.1MG) TABLETS Fluticasone Propionate 16 Gm Naspr, 2 SPRAY NS DAILY, (Reported) Guaifenesin/Dextromethorphan 1 Each Tab, 1 TAB PO 0500,1600, (Reported) Hydrocortisone 20 Mg Tablet, 20 MG PO 0800, (Reported) Hydrocortisone 20 Mg Tablet, 10 MG PO 1600, (Reported) TAKES 1/2 (20MG) TABLET Immune Globulin,Gamma(IgG) 10 Gm/50 Ml Vial, 10 GM SQ WEEK, (Reported) WEEKLY EVERY SUNDAY INFUSE OVER 1 HOUR VIA PUMP Lactobacillus Acidophilus 1 Each Capsule, 1 CAP PO 1200, (Reported) Loratadine 10 Mg Tablet, 10 MG PO DAILY, (Reported) Methylprednisolone Acetate 80 Mg/1 Ml Vial, 80 MG IM MONTHLY, (Reported) Multivitamins 1 Tab Tablet, 1 TAB PO HS, (Reported) Naproxen Sodium 220 Mg Tablet, 220 MG PO Q8H PRN for PAIN, (Reported) Omeprazole 40 Mg Capsule.dr, 40 MG PO DAILY, (Reported) Ondansetron 4 Mg Tab.rapdis, 4 MG PO Q8H PRN for NAUSEA, (Reported) Oxycodone HCl/Acetaminophen 1 Each Tablet, 1 TAB PO Q4H PRN for PAIN, (Reported) Polyethylene Glycol 17 Gm Pack, 17 GM PO DAILY, (Reported) Potassium Chloride 10 Meq Capsule.er, 10 MEQ PO QID, (Reported) Risedronate Sodium 150 Mg Tablet, 150 MG PO DAILY, (Reported) AROUND THE OF THE MONTH Past Rtihdbd-Obrbdu-Rnlnen Hx Patient Social History Alcohol Use: Denies Use Recreational Drug Use: No Smoking Status: Never a Smoker 2nd Hand Smoke Exposure: No Recent Foreign Travel: No Contact w/Someone Who Travel: No Recent Infectious Disease Expo: No Recent Hopitalizations: No Physical Abuse Screen: No Sexual Abuse: No Immunizations Up To Date Tetanus Booster (TDap): Unknown PED Vaccines UTD: No Date of Pneumonia Vaccine: Dec 07, 2009 Date of Influenza Vaccine: Mar 09, 2016 Seasonal Allergies Seasonal Allergies: No Surgeries HX Surgeries: Yes (BRAIN, PEG TUBE, suprapubic catheter, BROKEN LEG PLATES/ SCREWS) Surgeries: Orthopedic, Tracheostomy, Urinary Diversion Respiratory Hx Respiratory Disorders: Yes (HAS CPAP-GETTING USED TO WEARING IT, CHRONIC RESPIRATORY INSUFFICIENCY) Respiratory Disorders: Pneumonia, Chronic Bronchitis, Sleep Apnea Cardiovascular Hx Cardiac Disorders: Yes Cardiac Disorders: Hypertension Neurological Hx Neurological Disorders: Yes (ANOXIC BRAIN INJURY, TRIGEMINAL NERVE PAIN) Neurological Disorders: Stroke Reproductive System : No Hx Reproductive Disorders: No Sexually Transmitted Disease: No HIV/AIDS: No Female Reproductive Disorders: Denies PETROGRAPHER History: Menopausal Genitourinary Hx Genitourinary Disorders: Yes (SUPRAPUBIC CATHETER) Genitourinary Disorders: Bladder Infection, Neurogenic Bladder, UTI-Chronic Gastrointestinal Hx Gastrointestinal Disorders: Yes (Dysphagia) Gastrointestinal Disorders: Gastroesophageal Reflux, Chronic Constipation Musculoskeletal Hx Musculoskeletal Disorders: Yes (L LEG FX, TOTAL CARE AFTER ANOXIC SPELL) Musculoskeletal Disorders: Osteoporosis, Fractures Endocrine Hx Endocrine Disorders: No Endocrine Disorders: Adrenal Disease HEENT HX ENT Disorders: Yes (TRIGEMINAL NERVE PROBLEMS/ SWALLOWING PROBLEMS AT TIMES) Loss of Vision: Bilateral Hearing Impairment: Denies Cancer Hx Cancer: No Psychosocial Hx Psychiatric Problems: Yes (XANAX-NOT VERY OFTEN) Behavioral Health Disorders: Anxiety, Depression Integumentary HX Skin/Integumentary Disorder: No Blood Transfusions Hx Blood Disorders: Yes (immunoglobulin deficiency) Adverse Reaction to a Blood Tr: No Reviewed Nursing Assessment Reviewed/Agree w Nursing PMH: Yes Family Medical History Significant Family History: No Pertinent Family Hx Review of Systems Constitutional: Malaise, Weakness, No: Chills, Fever, Other, Sweats Eyes: No: Conjunctivae inflammation, Eyelid inflammation, Other, Pain, Redness , Vision change ENT: No: Ear discharge, Ear pain, Mouth pain, Mouth swelling, Nose congestion, Nose discharge, Nose pain, Other, Throat pain, Throat swelling Respiratory: Cough, Dry, SOB with excertion, Shortness of breath Cardiovascular: Lt Headedness, Paroxysmal Noc. Dyspnea, No: Chest Pain, Edema, Orthopnea, Other, Palpitations Gastrointestinal: No: Abdominal Pain, Constipation, Diarrhea, Hematochezia, Melena, Nausea, Other, Vomiting Genitourinary: No Dysuria, No Frequency, No Incontinence, No Hematuria, No Retention, No Other Neurological: Confusion Exam Exam Vital Signs Date Time Temp Pulse Resp B/P (MAP) Pulse Ox O2 Delivery O2 Flow Rate FiO2 12/05/16 08:00 97.2 93 20 164/90 94 2.50 12/05/16 06:49 91 3.00 12/05/16 03:59 98.0 92 18 156/90 96 2.50 12/04/16 23:11 98.0 82 18 128/69 98 2.50 12/04/16 21:06 92 3.00 12/04/16 21:00 3.00 12/04/16 19:49 98.6 85 18 125/72 94 2.50 12/04/16 15:47 97.1 73 18 158/78 96 2.50 12/04/16 15:09 92 3.00 12/04/16 12:30 98.6 86 19 131/72 96 2.00 12/04/16 09:49 3.00 I & O 12/05/16 07:00 Intake Total 2570 ml Output Total 2500 ml Balance 70 ml General Appearance: No Apparent Distress, WD/WN, Chronically ill, Other (neck leaned over to left side) HEENT: PERRL/EOMI, Normal ENT Inspection, Pharynx Normal Neck: Normal Inspection, Non Tender, Supple, Carotid Bruit, Other (neck is contracted) Respiratory: Chest Non Tender, No Accessory Muscle Use, No Respiratory Distress , Crackles, Decreased Breath Sounds, Wheezing, Other (upper respiratory crackles ) Cardiovascular: Regular Rate, Rhythm, No Edema, No Gallop, No JVD, No Murmur, Normal Peripheral Pulses Capillary Refill: Less Than 3 Seconds Extremity: Normal Capillary Refill, Normal Inspection, Normal Range of Motion, Non Tender, No Calf Tenderness, No Pedal Edema Neurologic/Psychiatric: Alert, Oriented x3, No Motor/Sensory Deficits, Depressed Affect Skin: Normal Color, Warm/Dry Lymphatic: No Adenopathy Results Lab Laboratory Tests 12/04/16 06:10 12/05/16 06:00 Assessment/Plan Assessment/Plan Altered MS with hypoxia -oxygen -- CXR is clear -SVNs UTI -IV ABX Merrem hx of CVID -IVIG as outpatient hypokalemia -replace Hx of anoxic brain injury from choking on hot dog 2009 chronic debility Clinical Quality Measures DVT/VTE Risk/Contraindication: Risk Factor Score Per Nursin RFS Level Per Nursing on Admit: 4+=Very High MYLA CAMARILLO DO December 05, 2016 09:15
[2016-12-05] MEDS ORDERED: POTASSIUM CL 10MEQ/50ML IVPB 50 ML IV SCH (09:30)
[2016-12-05] MEDS: DILTIAZEM 30 MG (CARDIZEM) TAB PO SCH (10:02)
[2016-12-05] MEDS: LORATADINE (CLARITIN) 10 MG TAB PO SCH (10:02)
[2016-12-05] MEDS: FLUTICASONE NASAL SPRAY (FLONASE) 16 GM BTL NS SCH (10:02)
[2016-12-05] MEDS: HYDROCORTISONE 20 MG (CORTEF) TAB PO SCH (10:02)
[2016-12-05] MEDS: POLYETHYLENE GLYCOL 17 GM (MIRALAX) PACK PO SCH (10:03)
[2016-12-05] MEDS: FLUDROCORTISONE 0.1 MG (FLORINEF) TAB PO SCH (10:03)
[2016-12-05] MEDS: TIMOLOL OS SCH (10:03)
[2016-12-05] MEDS: CALCIUM CARB + VIT D 600 MG (CALCARB + D) TAB PO SCH (10:03)
[2016-12-05] MEDS: BRIMONIDINE TARTRATE OS SCH (10:03)
[2016-12-05] MEDS: KCL 10 MEQ TAB (MICRO K) PO SCH (10:03)
[2016-12-05] MEDS: oxyCODONE/APAP 10/325MG (PERCOCET 10) TABLET PO PRN (10:05)
[2016-12-05] MEDS ORDERED: NS IV 500 ML 500 ML ONE (10:56)
[2016-12-05] MEDS ORDERED: NS IV 500 ML 500 ML IV ONE (11:15)
[2016-12-05] MEDS: LACTOBACILLUS Acidoph/Bulgar (LACTINEX/FLORANEX) TAB PO SCH (12:05)
[2016-12-05] MEDS ORDERED: oxyCODONE/APAP 10/325MG (PERCOCET 10) TABLET PO ONE (12:51)
--- NOTE | 2016-12-05 13:45 | Physician Query ---
PQ-Further Specificity Admission/Discharge Admission Date: December 02, 2016 at 14:10 Discharge Date: December 05, 2016 at 12:24 The medical record reflects the following clinical scenario: History/Risk Factors: She has had multiple resistant bacteria causing UTIs Suprapubic catheter Diagnosed UTI Clinical Findings: Positive cultures: E Coli, Proteus Mirabilis, Enterococcus Faecalis and Aerococcus Urinae Treatment: IV Levofloxacin Question: Can you further specify the UTI per the clinical indicators above? Please document below. 1. UTI due to suprapubic catheter. 2. UTI. 3. Other, with explanation of the clinical findings. 4. Clinically undetermined, no explanation for the clinical findings. PHYSICIAN RESPONSE Can you specify per above: 1 Please remember a lack of response to the above will prompt a phone page by CDI/ coding staff. In responding to this query, please exercise your independent professional judgment. The purpose of this communication is to more accurately reflect the complexity of your patients condition. The fact that a question is asked does not imply that any particular answer is desired or expected. Thank you for your timely response to this clarification. Requestors name: Debbie Stephenson [facility] Phone # ext [phone] or [phone] THIS PHYSICIAN QUERY FORM IS A PERMANENT PART OF THE MEDICAL RECORD DEBBIE STEPHENSON December 05, 2016 13:45 INEZ SERRANO DO December 06, 2016 07:06
--- NOTE | 2016-12-05 13:54 | Physician Query ---
PQ-Further Specificity Admission/Discharge Admission Date: December 02, 2016 at 14:10 Discharge Date: December 05, 2016 at 12:24 The medical record reflects the following clinical scenario: History/Risk Factors: Suprapubic catheter UTI Acute Bronchitis Clinical Findings: WBC-11.5, BP 141/83, T 99.5, Pulse 110, Resp 18, Lactic Acid 1.13 Altered mental status Treatment: IV Levofloxacin Question: Can you further specify SIRS per the clinical indicators above? Please document below. 1. SIRS with sepsis. 2. SIRS with no sepsis. 3. Other, with explanation of the clinical findings. 4. Clinically undetermined, no explanation for the clinical findings. PHYSICIAN RESPONSE Can you specify per above: 2 Please remember a lack of response to the above will prompt a phone page by CDI/ coding staff. In responding to this query, please exercise your independent professional judgment. The purpose of this communication is to more accurately reflect the complexity of your patients condition. The fact that a question is asked does not imply that any particular answer is desired or expected. Thank you for your timely response to this clarification. Requestors name: Debibe Stephenson [facility] Phone # ext [phone] or [phone] THIS PHYSICIAN QUERY FORM IS A PERMANENT PART OF THE MEDICAL RECORD DEBBIE STEPHENSON December 05, 2016 13:54 INEZ SERRANO DO December 06, 2016 07:06
--- NOTE | 2016-12-05 14:06 | Physician Query ---
PQ-Further Specificity Admission/Discharge Admission Date: December 02, 2016 at 14:10 Discharge Date: December 05, 2016 at 12:24 The medical record reflects the following clinical scenario: History/Risk Factors: Anoxic Brain Damage History of Stroke Clinical Findings: Neurogenic Bladder Dysphagia Treatment: Suprapubic catheter Dys 2 and nectar Question: Can you further specify Stroke Residuals per the clinical indicators above? Please document below. 1. Neurogenic Bladder and Dysphagia due to previous stroke. 2. Neurogenic Bladder and Dysphagia unspecified. 3. Other, with explanation of the clinical findings. 4. Clinically undetermined, no explanation for the clinical findings. PHYSICIAN RESPONSE Can you specify per above: 2 In responding to this query, please exercise your independent professional judgment. The purpose of this communication is to more accurately reflect the complexity of your patients condition. The fact that a question is asked does not imply that any particular answer is desired or expected. Thank you for your timely response to this clarification. Requestors name: Debbie Stephenson [facility] Phone # ext [phone] THIS PHYSICIAN QUERY FORM IS A PERMANENT PART OF THE MEDICAL RECORD DEBBIE STEPHENSON December 05, 2016 14:06 INEZ SERRANO DO December 06, 2016 07:07
[2016-12-05] MEDS ORDERED: RT-ALBUTEROL SULF 2.5 MG/3 ML PRE-MIX VIAL IH SCH (15:00)
[2016-12-05] MEDS ORDERED: IPRA3AMP IH (15:33)
--- NOTE | 2016-12-05 16:10 | Progress Note-Hospitalist ---
Standard Progress Note Progress Notes/Assess & Plan Date Seen 12/05/16 Diagnosis Assessment: Altered mental status with hypoxia and SIRS Hx of resistant organism UTI with suprapubic catheter History of anoxic brain injury after she choked on a hot dog in 2009 and has been bedridden and wheelchair bound since that time Obstructive sleep apnea on CPAP therapy Leukocytosis Fever Trigeminal neuralgia Assess & Plan/Chief Complaint The patient is a chronically ill white female since 2009 when she apparently inhaled a hot dog and suffered an anoxic brain injury. Her capabilities are severely limited. She has a chronic suprapubic catheter. Apparently on Friday 12/01 she had the catheter changed, her port flushed, and an IgG infusion for her CVID. She continued to decline and presented to the emergency room with decline in mental acuity plus hypoxia. She is to be transferred to swing bed status today to finish her course of antibiotics for the urinary tract infection which grew Escherichia coli, Proteus mirabilis, Enterobacter faecalis and aerococcus urinae. She reports today that she just does not feel well. Physical exam: Multiple contractures of limbs are noted mostly in flexion but with noted extension of the ankles and feet. Lungs show very shallow respirations. CV is poorly heard. Abdomen is large and soft. 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 2., common variable immunodeficiency. 3.instrumented bladder and recurrent urinary tract infections. Labs Laboratory Tests 12/04/16 06:10 12/05/16 06:00 EFRAIN ADAMS MD December 05, 2016 16:10
[2016-12-05] MEDS ORDERED: methylPREDNISolone 40 MG/ML (Solu-MEDROL) VIAL IV SCH (21:00)
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
== END 2016-12-05 12:24 | disposition swing bed (61) | DRG 699 ==
LOC: EDUNIT# 11:03 → ER 11:04 → 4TH 14:10
PROVIDERS: ADMIT Internal Medicine; ATTEND Internal Medicine
DX: T83.510A Infection and inflammatory reaction due to cystostomy catheter, initial encounter (principal); N39.0 Urinary tract infection, site not specified; J44.0 Chronic obstructive pulmonary disease with (acute) lower respiratory infection; J20.9 Acute bronchitis, unspecified; D80.3 Selective deficiency of immunoglobulin G [IgG] subclasses; R41.82 Altered mental status, unspecified; G47.33 Obstructive sleep apnea (adult) (pediatric); I10 Essential (primary) hypertension; N31.9 Neuromuscular dysfunction of bladder, unspecified; G50.0 Trigeminal neuralgia; E86.9 Volume depletion, unspecified; R13.10 Dysphagia, unspecified; K59.09 Other constipation; R06.89 Other abnormalities of breathing; E27.9 Disorder of adrenal gland, unspecified; H54.3 Unqualified visual loss, both eyes; K21.9 Gastro-esophageal reflux disease without esophagitis; F32.9 Major depressive disorder, single episode, unspecified; F41.9 Anxiety disorder, unspecified; E87.6 Hypokalemia; R53.81 Other malaise; B96.20 Unspecified Escherichia coli [E. coli] as the cause of diseases classified elsewhere; B96.4 Proteus (mirabilis) (morganii) as the cause of diseases classified elsewhere; Z87.820 Personal history of traumatic brain injury
CPT/HCPCS: 36415; 71010; 80053; 81000; 82140; 83605; 84484; 85025; 85610; 85730; 87040; 87077; 87088; 87186; 93005; 94640; 94664; 94760; 96361; 96365

== ENCOUNTER 2016-12-05 11:29 | Inpatient (IN) | payer MEDICARE, OTHER, MEDICAID ==
[~2016-12-05] VITALS: Ht 162.6 cm; Wt 67.1 kg
[~2016-12-05 11:29] MED LIST changes: +ESCI10TA PO
[2016-12-05 12:00] VITALS: BP 129/86
[2016-12-05] MEDS ORDERED: NAPROXEN 250 MG (NAPROSYN) TABLET PO PRN (12:45)
[2016-12-05] MEDS ORDERED: NS IV 500 ML 500 ML IV ONE (12:45)
[2016-12-05] MEDS ORDERED: PATIENT MAY USE OWN MEDS, ALL MC SCH (12:45)
[2016-12-05] MEDS ORDERED: ACETAMINOPHEN 325 MG TABLET/CAPLET (TYLENOL) PO PRN (12:45)
[2016-12-05] MEDS: oxyCODONE/APAP 10/325MG (PERCOCET 10) TABLET PO PRN ×3 (12:59→20:39)
[2016-12-05] MEDS ORDERED: RT-ALBUTEROL SULF 2.5 MG/3 ML PRE-MIX VIAL IH PRN (13:00)
[2016-12-05] MEDS: POTASSIUM CL 10MEQ/50ML IVPB 50 ML IV SCH ×4 (13:00→18:22)
--- NOTE | 2016-12-05 13:09 | Physical Therapy Evaluation ---
PT Evaluation-General Medical Diagnosis Admission Date December 05, 2016 at 12:39 Medical Diagnosis: UTI/acute bronchitis Onset Date: December 02, 2016 Therapy Diagnosis Therapy Diagnosis: generalized weakness Height/Weight Height (Feet): 5 Height (Inches): 4.00 Weight (Pounds): 148 Weight (Ounces): 0.0 Precautions Precautions/Isolations: Fall Prevention, Standard Precautions Weight Bear Status Comments nonambulatory PLOF Medical History Pertinent Medical History: COPD, GERD, HTN, TBI (anoxic brain injury from choking on a hot dog) Additional Medical History trigeminal nerve pain Current History brought to ED with generalized weakness Reviewed History: Yes Social History Home: Single Level Current Living Status: Spouse Entry Into Home: Ramp has paid caregivers to assist with ADL's in a.m. and p.m. Prior/Core FIM Prior Level of Function Functional [place] Measure 0=Not Assessed/NA 4=Minimal Assistance 1=Total Assistance 5=Supervision or Setup 2=Maximal Assistance 6=Modified [place] 3=Moderate Assistance 7=Complete [place] Bed Mobility: 1 Transfers (B,C,W/C) (FIM): 1 Wheelchair Mobility: 1 dependent assist with all care and mobility; patient has a lift at home for caregiver use PT Evaluation-Current Subjective Patient is in bed and agrees to PT. Pain Numeric Pain Scale: 10-Worst Possible Pain Location: Soft Tissue Location Body Site: Face (trigeminal nerve pain) Pain Description: Radiating, Sharp Pt/Family Goals return to home with spouse Objective Patient Orientation: Confused Problem Solving: Poor Attachments: Oxygen, Suprapubic Catheter, IV ROM/Strength ROM Lower Extremities bilateral LE plantarflexion contractures Strenght Lower Extremities 1/5 grossly bilaterally Integumentary/Posture Integumentary refer to nursing notes Bowel Incontinence: Yes Bladder Incontinence: No (suprapubic) Posture severe kyphosis/scoliosis Neuromuscular (Tone, Coordination, Reflexes) severely diminished tone and coordination (dependent care) Sensory Vision: Functional Hearing: Functional Sensation Right Lower Extremit: Impaired Sensation Left Lower Extremity: Impaired Transfers Functional [place] Measure 0=Not Assessed/NA 4=Minimal Assistance 1=Total Assistance 5=Supervision or Setup 2=Maximal Assistance 6=Modified [place] 3=Moderate Assistance 7=Complete [place] Transfers (B, C, W/C) (FIM): 1 Scootin Rollin Supine to/from Sit: 1 Sit to/from Stand: 0 bed t/f WC(FIM only if WC use): 88 Sit to Lying (QC): 1 Lying to Sitting/Side of Bed(Q: 1 Sit to Stand (QC): 9 Chair/Qdx-ui-Cpjgm Xfer(QC): 88 dependent assist with all mobility with patient unable to assist with any tasks. Incontinent BM requiring dependent assist x 2 to roll, cleanse and change patient and bedding. Gait Does the Patient Walk?: No and Walking Goal NOT indicated Wheelchair Training Does the Pt Use a Wheelchair?: Yes patient is dependent assist with this task Balance Sitting Static: Poor Sitting Dynamic: Poor Treatment bilateral LE exercises PROM 10 reps each AP, HS, SLR, abd/add Assessment/Needs 66 y.o. female, will benefit from short term skilled PT to address ROM and transfer training to ensure safe return to home with spouse and paid caregivers. Rehab Potential: Guarded Post Rehab Potential-Barriers: disease process PT Trust Administrator Goals Correction Goals PT Correction Goals Time Frame: Dec 19, 2016 Transfers (B,C,W/C) (FIM): 1 Sit to Lying (QC): 1 Lying-Sitting on Side/Bed(QC): 1 Sit to Stand (QC): 1 Rollin Chair/Hfy-ix-Mnbhz Xfer(QC): 1 Does the Patient Walk: No and Walking Goal NOT indicated PT Plan Problem List Problem List: Activity Tolerance, Functional Strength, Safety, Balance, Transfer, Bed Mobility, ROM Treatment/Plan Treatment Plan: Continue Plan of Care Treatment Plan: Bed Mobility, Education, Functional Activity Kaylene, Functional Strength, Safety, Therapeutic Exercise, Transfers Treatment Duration: Dec 19, 2016 # of days/week 5 Visits Per Week: 5 Pt/Family Agrees w/Plan: Yes Safety Risks/Education Patient Education: Safety Issues Teaching Recipient: Patient Teaching Methods: Discussion Response to Teaching: Reinforcement Needed Discharge Recommendations Therapy D/C Recommendations: Home w/ Family Support, Mcc Placement, Scheduled Assistance Time/GCodes Time In: 1240 Time Out: 1305 Total Billed Treatment Time: 25 Total Billed Treatment 1 visit EVModC 10 min FA 15 min CHANDRAKANT FELIX PT December 05, 2016 13:09
[2016-12-05] MEDS: KCL 10 MEQ TAB (MICRO K) PO SCH ×3 (13:42→20:41)
[2016-12-05] MEDS: DILTIAZEM 30 MG (CARDIZEM) TAB PO SCH ×2 (14:29→20:39)
[2016-12-05] MEDS: fentaNYL INJECTION 100 MCG/2 ML AMP IVP PRN ×2 (15:10→18:03)
[2016-12-05] MEDS ORDERED: IPRA3AMP IH (15:33)
[2016-12-05] MEDS: ALPRAZolam 0.25 MG (XANAX) TAB PO PRN (15:50)
[2016-12-05] MEDS: RT-ALBUTEROL SULF 2.5 MG/3 ML PRE-MIX VIAL IH SCH ×2 (15:54→19:30)
[2016-12-05] MEDS: CARBAMAZEPINE 100 MG PO SCH (16:06)
[2016-12-05] MEDS: HYDROCORTISONE 20 MG (CORTEF) TAB PO SCH (16:27)
--- NOTE | 2016-12-05 16:33 | Occupational Therapy Eval ---
OT Evaluation-General/PLF Medical Diagnosis Admission Date December 05, 2016 at 12:39 Medical Diagnosis: UTI/acute bronchitis, debility Onset Date: December 02, 2016 Therapy Diagnosis Therapy Diagnosis: weakness, decr self care Height/Weight Height (Feet): 5 Height (Inches): 4.00 Weight (Pounds): 148 Weight (Ounces): 0.0 Precautions Precautions/Isolations: Fall Prevention, Standard Precautions Referral Physician: Ez Referral Reason: Evaluation/Treatment Medical History Pertinent Medical History: COPD, GERD, HTN, Renal Insufficiency (chronic), TBI (anoxic brain injury from choking on a hot dog) Additional Medical History hx pneumonia, chronic bronchitis, sleep apnea, chronic respiratory insufficiency , trigeminal N pain. Anoxic brain injury, dysphagia. Chronic constipation, osteoporosis. Bilat loss of vision, anxiety, depression, immunoglobulin deficiency. Suprapubic catheter, hx PEG tube Current History Admitted with AMS, UTI, bronchitis, debility Reviewed History: Yes Social History Home: Single Level Current Living Status: Spouse Entry Into Home: Ramp ADL-Prior Level of Function ADL PLOF Comments Pt is assisted with ADLs at home and has been able to feed herself with setup ( Luis M cup, universal cuff). She has caregivers about 4 hours in the mornings, 7 days a week, and help to get her back to bed in the late afternoon. Caregivers help with bathing, dressing, toileting, cook one meal help with housecleaning and laundry. She is dependant for stand pivot transfers to and from power chair and spends most of her day up in tilt in space power chair. Her said that since June she goes to bed earlier and that over the past few weeks she has gotten weaker and has had help to feed herself. Drive Self: No OT Current Status Subjective Pt seen up in bed in room, agreeable to OT. Pain reported 8/10 to nursing ( primarily trigeminal pain) Appearance Alert, cooperative. Needed propped up in bed and head pulled down and to the left Mental Status/Objective Attachments: IV, Suprapubic Catheter Current Hand Dominance: Right Upper Extremity ROM Decreased AROM bilat at ends of range. Shoulder flex/abd about 90 degrees. Forward head. Upper Extremity Coordination Some incoordination noted bilat. Upper Extremity Strength grossly 3+/5 to 4/5 bilat. 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 She could hold a spoon with cylindrical foam but said she could feed herself with regular silverware. Her said that, due to fatigue and nausea, she hasn't been eating much. Discussed importance of getting calories in her compared to importance of her feeding herself and finding a balance. Pt education on options for high nutrition drinks that she might be able to drink herself and a change from Ensure. Functional [place] Measure 0=Not Assessed/NA 4=Minimal Assistance 1=Total Assistance 5=Supervision or Setup 2=Maximal Assistance 6=Modified [place] 3=Moderate Assistance 7=Complete IndependenceIRFPAI Quality Coding Scale 6 Independent with activity with or without an assistive device 5 Patient requires set up or clean up by helper. Patient completes activity by themselves 4 Supervision or touching assist (CGA). [place] provide cues , steadying assist 3 The helper provides less than half the effort to complete the activity 2 The helper provides more than half the effort to complete the activity 1 Dependent. The helper does all the effort to complete an activity 7 Patient refused to complete or attempt activity 9 The patient did not perform the activity before the current illness or injury 88 Not attempted due to Medical conditions or safety concerns Eating (FIM): 1 ( feeding her) Eating (QC): 1 Grooming (FIM): 1 (Family report) Oral Hygiene (QC): 1 Toileting (FIM): 1 Toileting Hygiene (QC): 1 Toilet/Commode Transfer (FIM): 1 Toilet Transfer (QC): 1 Education OT Patient Education: Modified ADL techniques, Purpose of tx/functional activities, Use of adapted equipment Teaching Recipient: Patient, Family Teaching Methods: Demonstration, Discussion Response to Teaching: Verbalize Understanding, Return Demonstration, Reinforcement Needed OT Short Term Goals Short Term Goals Time Frame: November 28, 2016 Eating(FIM): 3 (Pt will be able to feed herself 5 bites during a meal) 1=Demonstrate adherence to instructed precautions during ADL tasks. 2=Patient will verbalize/demonstrate understanding of assistive devices/ modifications for ADL. 3=Patient will improve strength/tolerance for activity to enable patient to perform ADL's. OT Retirement Goals Retirement Goals Time Frame: Dec 19, 2016 Eating (FIM): 5 Eating (QC): 5 Additional Goals: 2-Verbalize Understanding, 3-ImproveStrength/Kaylene 1=Demonstrate adherence to instructed precautions during ADL tasks. 2=Patient will verbalize/demonstrate understanding of assistive devices/ modifications for ADL. 3=Patient will improve strength/tolerance for activity to enable patient to perform ADL's. OT Education/Plan Problem List/Assessment Assessment: Impaired Self-Care Skills Pt would benefit from skilled OT to increase her independence in self feeding to decrease caregiver burden Discharge Recommendations Plan/Recommendations: Continue POC Therapy D/C Recommendations: Home w/ Family Support Treatment Plan/Plan of Care Treatment,Training & Education: Yes Patient would benefit from OT for education, treatment and training to promote independence in ADL's, mobility, safety and/or upper extremity function for ADL' s. Plan of Care: ADL Retraining Treatment Duration: Dec 19, 2016 # of days/week 5 Visits Per Week: 5 Agreement: Yes (Discussed with pt and ) Rehab Potential: Guarded Time/GCodes Start Time: 14:35 Stop Time: 15:00 Total Time Billed (hr/min): 25 Billed Treatment Time visit, 10 minutes OT evaluation low intensity, 15 minutes ADL ASPEN SANTANA OT December 05, 2016 16:33
[2016-12-05 17:52] VITALS: BP 121/78
[2016-12-05] MEDS: MEROPENEM 500 MG in NS (IVPB) 100 ML IV SCH (19:32)
[2016-12-05] MEDS: methylPREDNISolone 40 MG/ML (Solu-MEDROL) VIAL IV SCH (20:39)
[2016-12-05] MEDS: TEGRETOL PO SCH (20:40)
[2016-12-05] MEDS: COMBIGAN EYE DROP OS SCH (20:40)
[2016-12-06] MEDS: fentaNYL INJECTION 100 MCG/2 ML AMP IVP PRN ×3 (00:38→16:52)
[2016-12-06] MEDS: MEROPENEM 500 MG in NS (IVPB) 100 ML IV SCH ×4 (00:39→17:33)
[2016-12-06] MEDS: TEGRETOL PO SCH ×2 (05:48→20:48)
[2016-12-06] MEDS: PANTOPRAZOLE 40 MG (PROTONIX) TAB PO SCH (05:49)
[2016-12-06] MEDS: MULTIVIT W/MINERALS TAB (THERAGRAN M) PO SCH (05:49)
[2016-12-06 05:53] VITALS: BP 131/86
[2016-12-06] MEDS: RT-ALBUTEROL SULF 2.5 MG/3 ML PRE-MIX VIAL IH SCH ×4 (07:31→19:04)
[2016-12-06] MEDS: HYDROCORTISONE 20 MG (CORTEF) TAB PO SCH ×2 (08:41→15:38)
[2016-12-06] MEDS: POLYETHYLENE GLYCOL 17 GM (MIRALAX) PACK PO SCH (09:26)
[2016-12-06] MEDS: LORATADINE (CLARITIN) 10 MG TAB PO SCH (09:26)
[2016-12-06] MEDS: methylPREDNISolone 40 MG/ML (Solu-MEDROL) VIAL IV SCH ×2 (09:26→20:46)
[2016-12-06] MEDS: DILTIAZEM 30 MG (CARDIZEM) TAB PO SCH ×3 (09:27→20:46)
[2016-12-06] MEDS: KCL 10 MEQ TAB (MICRO K) PO SCH ×4 (09:27→20:47)
[2016-12-06] MEDS: CALCIUM CARB + VIT D 600 MG (CALCARB + D) TAB PO SCH (09:27)
[2016-12-06] MEDS: FLUDROCORTISONE 0.1 MG (FLORINEF) TAB PO SCH (09:27)
[2016-12-06] MEDS: COMBIGAN EYE DROP OS SCH ×2 (09:28→20:47)
[2016-12-06] MEDS: FLUTICASONE NASAL SPRAY (FLONASE) 16 GM BTL NS SCH (09:28)
[2016-12-06] MEDS: oxyCODONE/APAP 10/325MG (PERCOCET 10) TABLET PO PRN ×3 (09:34→20:47)
--- NOTE | 2016-12-06 11:25 | Physical Therapy Daily Note ---
PT Daily Note-Current Subjective Pt laying Supine in bed with head hanging to the L side. Pt demonstrates weakness in both UE & LE. Pt agrees to Supine Ex in bed to work on ROM and strength to try to improve mobility. Pain Location: No Pain Reported Mental Status Patient Orientation: Person, Place, Situation Attachments: Oxygen, Suprapubic Catheter, IV Transfers Functional [place] Measure 0=Not Assessed/NA 4=Minimal Assistance 1=Total Assistance 5=Supervision or Setup 2=Maximal Assistance 6=Modified [place] 3=Moderate Assistance 7=Complete IndependenceIRFPAI Quality Coding Scale 6 Independent with activity with or without an assistive device 5 Patient requires set up or clean up by helper. Patient completes activity by themselves 4 Supervision or touching assist (CGA). [place] provide cues , steadying assist 3 The helper provides less than half the effort to complete the activity 2 The helper provides more than half the effort to complete the activity 1 Dependent. The helper does all the effort to complete an activity 7 Patient refused to complete or attempt activity 9 The patient did not perform the activity before the current illness or injury 88 Not attempted due to Medical conditions or safety concerns Exercises Supine Ex: Ankle pumps, Quad Set, Heel Slides, Straight leg raise, Hip abd/add Supine Reps: 15 Treatments Pt completed Supine Ex in bed (PROM on LLE due to weakness/muscle control & AAROM-AROM on RLE). Pt stays Supine in bed to rest at end of tx with RT coming in and all needs met. Assessment Current Status: Fair Progress Pt completes Ex as pt can but struggles with overall weakness and debility. PT Machine Straw Hat Presser Goals Prison Goals PT Prison Goals Time Frame: Dec 19, 2016 Transfers (B,C,W/C) (FIM): 1 Sit to Lying (QC): 1 Lying-Sitting on Side/Bed(QC): 1 Sit to Stand (QC): 1 Rollin Chair/Lsu-qu-Fidgx Xfer(QC): 1 Does the Patient Walk: No and Walking Goal NOT indicated PT Plan Problem List Problem List: Activity Tolerance, Functional Strength, Safety, Balance, Gait, Transfer, Bed Mobility, ROM Treatment/Plan Treatment Plan: Continue Plan of Care Treatment Plan: Bed Mobility, Education, Functional Activity Kaylene, Functional Strength, Safety, Therapeutic Exercise, Transfers Treatment Duration: Dec 19, 2016 Visits Per Week: 5 Safety Risks/Education Patient Education: Correct Positioning, Disease Process, Safety Issues Teaching Recipient: Patient, Family Teaching Methods: Discussion Response to Teaching: Verbalize Understanding Time/GCodes Time In: 1050 Time Out: 1105 Total Billed Treatment Time: 15 Total Billed Treatment visit, EX (15m) MARSHALL BLAKELY SPICE BLENDER December 06, 2016 11:25
[2016-12-06] MEDS: CATHETER FLUSH 10 ML SYR IV PRN ×4 (12:23→17:33)
[2016-12-06] MEDS: CARBAMAZEPINE 100 MG PO SCH ×2 (12:59→17:33)
[2016-12-06] MEDS: LACTOBACILLUS Acidoph/Bulgar (LACTINEX/FLORANEX) TAB PO SCH (12:59)
[2016-12-06] MEDS: ALPRAZolam 0.25 MG (XANAX) TAB PO PRN (14:01)
--- NOTE | 2016-12-06 14:06 | Occ Therapy Progress Note ---
Therapy Progress Note Pt dozing in bed. Pt woke easily to knock on door. Pt stated that her jaw hurt and that she was tired. Pt refused treatment for today. CORTEZ discussed how she ate lunch today and she said she took a couple of bites by herself then her fed her. 1,refusal SUE CARRILLO December 06, 2016 14:06
[2016-12-06 17:45] VITALS: BP 99/66
[2016-12-06 20:34] VITALS: BP 119/75
[2016-12-07] MEDS: MEROPENEM 500 MG in NS (IVPB) 100 ML IV SCH ×5 (00:09→23:51)
[2016-12-07] MEDS: oxyCODONE/APAP 10/325MG (PERCOCET 10) TABLET PO PRN ×4 (04:56→17:36)
[2016-12-07] MEDS: TEGRETOL PO SCH ×2 (04:59→20:22)
[2016-12-07 05:59] VITALS: BP 150/70
[2016-12-07] MEDS: MULTIVIT W/MINERALS TAB (THERAGRAN M) PO SCH (06:10)
[2016-12-07] MEDS: PANTOPRAZOLE 40 MG (PROTONIX) TAB PO SCH (06:11)
[2016-12-07] MEDS: RT-ALBUTEROL SULF 2.5 MG/3 ML PRE-MIX VIAL IH SCH ×4 (06:56→18:22)
[2016-12-07] MEDS: ONDANSETRON 4 MG (ZOFRAN) ORAL DISSOLVE TAB PO PRN (08:46)
[2016-12-07] MEDS: HYDROCORTISONE 20 MG (CORTEF) TAB PO SCH ×2 (09:02→15:27)
[2016-12-07] MEDS: KCL 10 MEQ TAB (MICRO K) PO SCH ×4 (09:02→21:43)
[2016-12-07] MEDS: methylPREDNISolone 40 MG/ML (Solu-MEDROL) VIAL IV SCH ×2 (09:02→21:43)
[2016-12-07] MEDS: DILTIAZEM 30 MG (CARDIZEM) TAB PO SCH ×3 (09:02→21:43)
[2016-12-07] MEDS: FLUDROCORTISONE 0.1 MG (FLORINEF) TAB PO SCH (09:03)
[2016-12-07] MEDS: LORATADINE (CLARITIN) 10 MG TAB PO SCH (09:04)
[2016-12-07] MEDS: FLUTICASONE NASAL SPRAY (FLONASE) 16 GM BTL NS SCH (09:19)
[2016-12-07] MEDS: COMBIGAN EYE DROP OS SCH ×2 (09:19→21:44)
[2016-12-07] MEDS: fentaNYL INJECTION 100 MCG/2 ML AMP IVP PRN ×5 (10:28→20:22)
--- NOTE | 2016-12-07 10:31 | Progress Note-Hospitalist ---
Progress Note Progress Notes/Assess & Plan Date Seen 12/07/16 Diagonsis/Assessment & Plan Chart Review: No fever Vitals stable Pharmacy Review: Pt is currently on day six on antibiotics, she will need to be on seven days and will not need to be on antibiotics at home. Patient Interview: Pt has been eating normal Pt was informed that she will not need to be on antibiotics at home Physical exam stable. Lungs are improved. No fever, vital signs stable, pleasant, chronically ill, improved Regular rate and rhythm, left coarse distant breath sounds all banks no tachypnea No edema Assessment: Altered mental status with hypoxia and SIRS due to resistant organism UTI from suprapubic catheter now on Meropenem History of anoxic brain injury after she choked on a hot dog in 2009 and has been bedridden and wheelchair bound since that time Obstructive sleep apnea on CPAP therapy Leukocytosis Fever Trigeminal neuralgia chronic Plan: DC Sunday on Check labs in am Will need Urology follow up with Dr Ndiaey for enlarging SP stoma site Scribed by Vanessa Quezada under the direct supervision of Dr. Serrano. INEZ SERRANO DO Dec 07, 2016 10:31
[2016-12-07] MEDS: CARBAMAZEPINE 100 MG PO SCH ×2 (11:43→16:57)
[2016-12-07] MEDS: PROMETHAZINE INJ 25 MG/ML (PHENERGAN) AMP IVP PRN (11:43)
[2016-12-07] MEDS: LACTOBACILLUS Acidoph/Bulgar (LACTINEX/FLORANEX) TAB PO SCH (11:47)
--- NOTE | 2016-12-07 12:04 | Physical Therapy Progress Note ---
Therapy Progress Note Pt sitting up in bed with head hanging to L side. Pt reports not feeling well and nurse giving nausea med. Sp asked PT about AFO rubbing R foot sore and what modifications could be made. PT to confir with another PT and get back to pt. PT will check on pt in the afternoon for possible tx. 1 visit ([id number]) MARSHALL BLAKELY PTA Dec 07, 2016 12:04
[2016-12-07] MEDS: CALCIUM CARB + VIT D 600 MG (CALCARB + D) TAB PO SCH (12:56)
[2016-12-07] MEDS: POLYETHYLENE GLYCOL 17 GM (MIRALAX) PACK PO SCH (12:56)
--- NOTE | 2016-12-07 15:03 | Occupational Ther Daily Note ---
OT Current Status-Daily Note Subjective Pt alert, lying in bed. Pt's in room. Pt agreed to therapy. Mental Status/Objective Patient Orientation: Person, Place, Time, Situation Functional [place] Measure 0=Not Assessed/NA 4=Minimal Assistance 1=Total Assistance 5=Supervision or Setup 2=Maximal Assistance 6=Modified [place] 3=Moderate Assistance 7=Complete [place] Attachments: IV, Oxygen, Suprapubic Catheter ADL-Treatment Functional [place] Measure 0=Not Assessed/NA 4=Minimal Assistance 1=Total Assistance 5=Supervision or Setup 2=Maximal Assistance 6=Modified [place] 3=Moderate Assistance 7=Complete IndependenceIRFPAI Quality Coding Scale 6 Independent with activity with or without an assistive device 5 Patient requires set up or clean up by helper. Patient completes activity by themselves 4 Supervision or touching assist (CGA). [place] provide cues , steadying assist 3 The helper provides less than half the effort to complete the activity 2 The helper provides more than half the effort to complete the activity 1 Dependent. The helper does all the effort to complete an activity 7 Patient refused to complete or attempt activity 9 The patient did not perform the activity before the current illness or injury 88 Not attempted due to Medical conditions or safety concerns Other Treatment Completed UE exercises with slight resistance with movements, 3 sets 10 reps for each exercises. Pt began to feel nauseated during exercises. Stopped exercises found pt's nurse, nurse reported that pt had had nausea medication a hour earlier. Nrsg came in to check on pt. Discussed self feeding with . Pt states that he is feeding her and that at home it is hard for her to feed herself due to kyphosis, chin is resting on chest and pt unable to lift when sitting in chair per . Discussed neck brace which pt has recently gotten though states that it is harder for her to swallow with brace in place. then stated after has neck brace on for one hour then is able to raise head up further. Recommended that brace be worn prior to meals so pt will have an easier time feeding her self. After therapy, pt lying in bed with nrsg and present. All needs met in room. OT Short Term Goals Short Term Goals Time Frame: November 28, 2016 Eating(FIM): 3 (Pt will be able to feed herself 5 bites during a meal) 1=Demonstrate adherence to instructed precautions during ADL tasks. 2=Patient will verbalize/demonstrate understanding of assistive devices/ modifications for ADL. 3=Patient will improve strength/tolerance for activity to enable patient to perform ADL's. OT Retirement Goals Drain Technician Goals Time Frame: Dec 19, 2016 Eating (FIM): 5 Eating (QC): 5 Additional Goals: 2-Verbalize Understanding, 3-ImproveStrength/Kaylene 1=Demonstrate adherence to instructed precautions during ADL tasks. 2=Patient will verbalize/demonstrate understanding of assistive devices/ modifications for ADL. 3=Patient will improve strength/tolerance for activity to enable patient to perform ADL's. OT Education/Plan Problem List/Assessment Pt would benefit from skilled OT to increase her independence in self feeding to decrease caregiver burden Discharge Recommendations Plan/Recommendations: Continue POC Treatment Plan/Plan of Care Patient would benefit from OT for education, treatment and training to promote independence in ADL's, mobility, safety and/or upper extremity function for ADL' s. Plan of Care: ADL Retraining Treatment Duration: Dec 19, 2016 Visits Per Week: 5 Agreement: Yes (Discussed with pt and ) Rehab Potential: Guarded Time/GCodes Start Time: 10:00 Stop Time: 10:23 Total Time Billed (hr/min): 23 Billed Treatment Time 1 visit-EX 1 (15 min) FA 1 (8 min) SUE CARRILLO Dec 07, 2016 15:02
--- NOTE | 2016-12-07 15:08 | Wound Care Progress Note ---
Objective Exam Last Set of Vital Signs Vital Signs Date Time Temp Pulse Resp B/P (MAP) Pulse Ox O2 Delivery O2 Flow Rate FiO2 12/07/16 11:11 96 2.00 12/07/16 05:59 97.7 79 20 150/70 Capillary Refill : I&O Intake and Output 12/07/16 00:00 Intake Total 900 ml Output Total 650 ml Balance 250 ml Intake Oral 500 ml IV Total 400 ml Output Urine Total 650 ml # Bowel Movements 1 REBEKAH FLOWERS MD Dec 07, 2016 15:08
--- NOTE | 2016-12-07 15:29 | Physical Therapy Daily Note ---
PT Daily Note-Current Subjective Pt laying Supine in bed with head hanging to the L side. Pt reports feeling very fatigued and that she does better in morning. Pt will complete Pt ed with Pt & Sp. Mental Status Patient Orientation: Person, Place Attachments: Oxygen, Suprapubic Catheter Transfers Functional [place] Measure 0=Not Assessed/NA 4=Minimal Assistance 1=Total Assistance 5=Supervision or Setup 2=Maximal Assistance 6=Modified [place] 3=Moderate Assistance 7=Complete IndependenceIRFPAI Quality Coding Scale 6 Independent with activity with or without an assistive device 5 Patient requires set up or clean up by helper. Patient completes activity by themselves 4 Supervision or touching assist (CGA). [place] provide cues , steadying assist 3 The helper provides less than half the effort to complete the activity 2 The helper provides more than half the effort to complete the activity 1 Dependent. The helper does all the effort to complete an activity 7 Patient refused to complete or attempt activity 9 The patient did not perform the activity before the current illness or injury 88 Not attempted due to Medical conditions or safety concerns Treatments Pt wants to try transfer training in morning when pt reports having more strength. PT, pt & sp discussed educ. items such as house set up, assistance at home needing to complete transfers to provide help with HH staff and sp for transfers. Pt will see PT in morning for transfer training and AFO fitting due to wound on R foot. Pt laying Supine in bed with all needs met at end of FA for tx. Assessment Current Status: Fair Progress Pt is fatigued frequently and not much ROM, has weakness. Pt is willing to participate due to wanting to discharge home tomorrow although unsure if safe. PT Nursing Home Goals Jig Maker Goals PT Jig Maker Goals Time Frame: Dec 19, 2016 Transfers (B,C,W/C) (FIM): 1 Sit to Lying (QC): 1 Lying-Sitting on Side/Bed(QC): 1 Sit to Stand (QC): 1 Rollin Chair/Bwr-wk-[place] Xfer(QC): 1 Does the Patient Walk: No and Walking Goal NOT indicated PT Plan Problem List Problem List: Activity Tolerance, Functional Strength, Safety, Balance, Gait, Transfer, Bed Mobility, ROM Treatment/Plan Treatment Plan: Continue Plan of Care Treatment Plan: Bed Mobility, Education, Functional Activity Kaylene, Functional Strength, Safety, Therapeutic Exercise, Transfers Treatment Duration: Dec 19, 2016 Visits Per Week: 5 Safety Risks/Education Patient Education: Transfer Techniques, Correct Positioning, Instructions to Caregiver, Safety Issues Teaching Recipient: Patient, Significant Other Teaching Methods: Discussion Response to Teaching: Verbalize Understanding Time/GCodes Time In: 1450 Time Out: 1510 Total Billed Treatment Time: 20 Total Billed Treatment visit, FA (20m) MARSHALL BLAKELY TECHNICAL SPECIALIST Dec 07, 2016 15:29
[2016-12-07] MEDS: ALPRAZolam 0.25 MG (XANAX) TAB PO PRN (15:31)
[2016-12-07 18:25] VITALS: BP 148/90
[2016-12-08] MEDS: MULTIVIT W/MINERALS TAB (THERAGRAN M) PO SCH (05:19)
[2016-12-08] MEDS: TEGRETOL PO SCH (05:19)
[2016-12-08] MEDS: PANTOPRAZOLE 40 MG (PROTONIX) TAB PO SCH (05:19)
[2016-12-08] MEDS: MEROPENEM 500 MG in NS (IVPB) 100 ML IV SCH ×2 (05:20→11:37)
[2016-12-08] MEDS: RT-ALBUTEROL SULF 2.5 MG/3 ML PRE-MIX VIAL IH SCH ×2 (06:30→10:40)
[2016-12-08 06:41] VITALS: BP 156/84
[2016-12-08 06:54] LABS: BASOPHILS % (AUTO) 0 % (0-10); EOSINOPHILS % (AUTO) 0 % (0-10); LYMPHOCYTES # (AUTO) 1.6 X 10^3 (1.0-4.0); LYMPHOCYTES % (AUTO) 15 % (12-44); MEAN CORPUSCULAR HEMOGLOBIN 23 PG (25-34); MEAN CORPUSCULAR HGB CONC 29 G/DL (32-36); MEAN CORPUSCULAR VOLUME 80 FL (80-99); MEAN PLATELET VOLUME 9.5 FL (7.4-10.4); MONOCYTES # (AUTO) 0.7 X 10^3 (0.0-1.0); MONOCYTES % (AUTO) 6 % (0-12); NEUTROPHILS # (AUTO) 7.9 X 10^3 (1.8-7.8); NEUTROPHILS % (AUTO) 78 % (42-75); PLATELET COUNT 449 10^3/uL (130-400); RED BLOOD COUNT 3.97 10^6/uL (4.35-5.85); RED CELL DISTRIBUTION WIDTH 19.4 % (10.0-14.5); WHITE BLOOD COUNT 10.1 10^3/uL (4.3-11.0)
[2016-12-08 07:04] LABS: ALANINE AMINOTRANSFERASE 159 U/L (0-55); ALBUMIN 3.1 G/DL (3.2-4.5); ANION GAP 8 MMOL/L (5-14); ASPARTATE AMINO TRANSFERASE 149 U/L (5-34); BILIRUBIN,TOTAL 0.2 MG/DL (0.1-1.0); BLOOD UREA NITROGEN 27 MG/DL (7-18); BUN/CREATININE RATIO 51; CALCIUM 9.1 MG/DL (8.5-10.1); CARBON DIOXIDE 30 MMOL/L (21-32); CHLORIDE 104 MMOL/L (98-107); CREATININE SERUM 0.53 MG/DL (0.60-1.30); GFR ESTIMATED > 60; GLUCOSE 144 MG/DL (70-105); POTASSIUM 4.1 MMOL/L (3.6-5.0); SODIUM 142 MMOL/L (135-145); TOTAL PROTEIN 6.2 G/DL (6.4-8.2)
[2016-12-08] MEDS: HYDROCORTISONE 20 MG (CORTEF) TAB PO SCH (08:03)
[2016-12-08] MEDS: KCL 10 MEQ TAB (MICRO K) PO SCH ×2 (08:03→13:50)
[2016-12-08] MEDS: DILTIAZEM 30 MG (CARDIZEM) TAB PO SCH ×2 (08:03→13:49)
[2016-12-08] MEDS: LORATADINE (CLARITIN) 10 MG TAB PO SCH (08:03)
[2016-12-08] MEDS: CALCIUM CARB + VIT D 600 MG (CALCARB + D) TAB PO SCH (08:03)
[2016-12-08] MEDS: COMBIGAN EYE DROP OS SCH (08:04)
[2016-12-08] MEDS: FLUTICASONE NASAL SPRAY (FLONASE) 16 GM BTL NS SCH (08:04)
[2016-12-08] MEDS: POLYETHYLENE GLYCOL 17 GM (MIRALAX) PACK PO SCH (08:04)
[2016-12-08] MEDS: FLUDROCORTISONE 0.1 MG (FLORINEF) TAB PO SCH (08:04)
[2016-12-08] MEDS: methylPREDNISolone 40 MG/ML (Solu-MEDROL) VIAL IV SCH (08:04)
[2016-12-08] MEDS: oxyCODONE/APAP 10/325MG (PERCOCET 10) TABLET PO PRN ×2 (08:05→13:50)
[2016-12-08] MEDS: ONDANSETRON 4 MG (ZOFRAN) ORAL DISSOLVE TAB PO PRN (08:13)
--- NOTE | 2016-12-08 08:45 | Physical Therapy Daily Note ---
PT Daily Note-Current Subjective Patient agrees to PT. Incontinent BM. Pain Numeric Pain Scale: 5-Moderate Pain Location: Right, Left Location Body Site: Thigh Pain Description: Ache Mental Status Patient Orientation: Person, Time, Situation Attachments: Oxygen, Suprapubic Catheter Transfers Functional [place] Measure 0=Not Assessed/NA 4=Minimal Assistance 1=Total Assistance 5=Supervision or Setup 2=Maximal Assistance 6=Modified [place] 3=Moderate Assistance 7=Complete IndependenceIRFPAI Quality Coding Scale 6 Independent with activity with or without an assistive device 5 Patient requires set up or clean up by helper. Patient completes activity by themselves 4 Supervision or touching assist (CGA). [place] provide cues , steadying assist 3 The helper provides less than half the effort to complete the activity 2 The helper provides more than half the effort to complete the activity 1 Dependent. The helper does all the effort to complete an activity 7 Patient refused to complete or attempt activity 9 The patient did not perform the activity before the current illness or injury 88 Not attempted due to Medical conditions or safety concerns Transfers (B, C, W/C) (FIM): 1 Scootin Roll Left to Right (QC): 1 Supine to/from Sit: 1 Sit to/from Stand: 1 Sit to Lying (QC): 1 Sit to Stand (QC): 1 Chair/Qqi-mr-Lcirv Xfer(QC): 1 Bed to/from Chair: 1 dependent assist x 2 with SPT and sit to stand to cleanse and change patient secondary to incontinent BM (large) with patient unable to actively assist with transfers and bed mobility. Patient unable to sit EOB without support. Pivot disc utilized for safety. Gait Training Does the Patient Walk?: No and Walking Goal NOT indicated Exercises Seated Therapy Exercises: Long arc quads Seated Reps: 10 Assessment Noted plantarflexion contractures bilateral feet. AFO's are not appropriate at this time due to contractures and skin compromise. Education with patient and spouse on this subject and transfers requiring dependent assist x 2 with all mobility. From a PT standpoint, patient would benefit [facility] to build strength and ensure safe return to home with spouse and paid caregivers. PT Cart Driver Goals Cart Driver Goals PT Cart Driver Goals Time Frame: Dec 19, 2016 Transfers (B,C,W/C) (FIM): 1 Sit to Lying (QC): 1 Lying-Sitting on Side/Bed(QC): 1 Sit to Stand (QC): 1 Rollin Chair/Jxv-hx-Ewrnq Xfer(QC): 1 Does the Patient Walk: No and Walking Goal NOT indicated PT Plan Problem List Problem List: Activity Tolerance, Functional Strength, Safety, Balance, Transfer, Bed Mobility, ROM Treatment/Plan Treatment Plan: Continue Plan of Care Treatment Plan: Bed Mobility, Education, Functional Activity Kaylene, Functional Strength, Safety, Therapeutic Exercise, Transfers Treatment Duration: Dec 19, 2016 Visits Per Week: 5 Safety Risks/Education Patient Education: Safety Issues Teaching Recipient: Patient, Primary Caregiver, Significant Other Teaching Methods: Demonstration, Discussion Response to Teaching: Verbalize Understanding, Reinforcement Needed Discharge Recommendations Therapy D/C Recommendations: Nursing Home (TCU/NH) Time/GCodes Time In: 815 Time Out: 840 Total Billed Treatment Time: 25 Total Billed Treatment 1 visit FA x 2 25 min CHANDRAKANT FELIX PT Dec 08, 2016 08:45
[2016-12-08] MEDS ORDERED: PATIENT MAY USE OWN MED,SINGLE MED PO SCH (09:30)
[2016-12-08] MEDS ORDERED: IMMUNE GLOBULIN GAMMA 10 GM SQ SCH (09:30)
[2016-12-08] MEDS: fentaNYL INJECTION 100 MCG/2 ML AMP IVP PRN ×2 (09:39→11:37)
[2016-12-08] MEDS ORDERED: ALPR0.254 PO (10:42)
[2016-12-08] MEDS ORDERED: OXYC10TA7 PO (10:42)
--- NOTE | 2016-12-08 10:45 | Discharge Inst-Skilled Nursing ---
Discharge Inst-Skilled NF Chief Complaint Weakness Patient Instructions Patient Problems: Anoxic brain injury Recurrent UTI's Goal: Strengthen to return home Consult/Follow Up/Orders Follow Up Appt.: Dr Ndiaye for stoma site issues for SP catheter Skilled NF Admit to: Via [facility] Certification ([facility]) I certify that SNF services are required to be given on an inpatient basis because of the above named patient's need for detention care on a continuing basis for the conditions(s) for which he/she was receiving inpatient hospital services prior to his/her transfer to the [facility]. Halfway Facility Order: Nursing Services, Blending Plant Operator-Evaluate & Treat, Physical Therapy-Evaluate & Treat, Speech Language-Evaluate & Treat Discharge Diet: No Restrictions Daily Activity as Tolerated: Yes New & Resume Previous Orders New Medications: Oxycodone HCl (Oxycodone HCl) 10 Mg Tablet 10 MG PO Q4H PRN for PAIN-MODERATE, #60 TAB Continued Medications: Alprazolam (Alprazolam) 0.25 Mg Tablet 0.25 MG PO TID PRN for ANXIETY, #30 TAB (This prescription has been renewed) Brimonidine Tartrate/Timolol (Combigan Eye Drops) 5 Ml Drops 1 DROP OS BID, EA Calcium Carbonate/Vitamin D3 (Calcium 600 + Vit D 400 Caplet) 1 Each Tablet 1 TAB PO DAILY, TAB Carbamazepine (Tegretol Xr) 100 Mg Tab 200 MG PO 0500,2000, TAB TAKES 2 (100MG) TABLETS Carbamazepine (Tegretol Xr) 100 Mg Tab 100 MG PO 1200,1700, TAB Cranberry Conc/Ascorbic Acid (Cranberry 12,600 mg Softgel) 1 Each Capsule 1 CAP PO DAILY, CAP Dexamethasone Sod Phosphate (Dexamethasone Sodium Phosphate) 4 Mg/1 Ml Vial 4 MG IM MONTHLY, EA Diltiazem HCl (Diltiazem HCl) 90 Mg Tablet 90 MG PO TID, TAB Escitalopram Oxalate (Escitalopram Oxalate) 10 Mg Tablet 10 MG PO 1600, TAB Fludrocortisone Acetate (Fludrocortisone Acetate) 0.1 Mg Tab 0.2 MG PO DAILY, TAB TAKES 2 (0.1MG) TABLETS Fluticasone Propionate (Flonase Nasal [place]) 16 Gm Naspr 2 SPRAY NS DAILY, EA Guaifenesin/Dextromethorphan (Mucinex Dm (Non-Formulary)) 1 Each Tab 1 TAB PO 0500,1600, TAB Hydrocortisone (Hydrocortisone) 20 Mg Tablet 20 MG PO 0800, TAB Hydrocortisone (Hydrocortisone) 20 Mg Tablet 10 MG PO 1600, TAB TAKES 1/2 (20MG) TABLET Immune Globulin,Gamma(IgG) (Hizentra) 10 Gm/50 Ml Vial 10 GM SQ WEEK, VIAL WEEKLY EVERY SUNDAY INFUSE OVER 1 HOUR VIA PUMP Ipratropium/Albuterol Sulfate (Iprat-Albut 0.5-3(2.5) mg/3 ml) 3 Ml Ampul.neb 3 ML IH QID, EACH Lactobacillus Acidophilus (Acidophilus Lactobacillus) 1 Each Capsule 1 CAP PO 1200, CAP Loratadine (Loratadine) 10 Mg Tablet 10 MG PO DAILY, TAB Methylprednisolone Acetate (Depo-Medrol) 80 Mg/1 Ml Vial 80 MG IM MONTHLY, EA Multivitamins (Multiple Vitamin) 1 Tab Tablet 1 TAB PO HS, TAB Naproxen Sodium (Aleve) 220 Mg Tablet 220 MG PO Q8H PRN for PAIN, TAB Omeprazole (Omeprazole) 40 Mg Capsule.dr 40 MG PO DAILY, CAP Ondansetron (Ondansetron Odt) 4 Mg Tab.rapdis 4 MG PO Q8H PRN for NAUSEA, TAB Polyethylene Glycol (Miralax 17 Gm Packet) 17 Gm Pack 17 GM PO DAILY, EA Potassium Chloride (Potassium Chloride) 10 Meq Capsule.er 10 MEQ PO QID, CAP Discontinued Medications: Oxycodone HCl/Acetaminophen (Oxycodone-Acetaminophen 10-325) 1 Each Tablet 1 TAB PO Q4H PRN for PAIN, TAB Maite Burt Dec 08, 2016 10:43 Pneu Vac Indicated: Yes MAITE BURT DO Dec 08, 2016 10:44
--- NOTE | 2016-12-08 11:10 | Discharge Summary-Hospitalist ---
Diagnosis/Chief Complaint Date of Admission December 05, 2016 at 12:39 Date of Discharge Discharge Date: Dec 08, 2016 Discharge Diagnosis Chart Review: No fever Vitals stable Pharmacy Review: Pt is currently on day six on antibiotics, she will need to be on seven days and will not need to be on antibiotics at home. Patient Interview: Pt has been eating normal Pt was informed that she will not need to be on antibiotics at home Physical exam stable. Lungs are improved. No fever, vital signs stable, pleasant, chronically ill, improved Regular rate and rhythm, left coarse distant breath sounds all banks no tachypnea No edema Assessment: Altered mental status with hypoxia and SIRS due to resistant organism UTI from suprapubic catheter now on Meropenem History of anoxic brain injury after she choked on a hot dog in 2009 and has been bedridden and wheelchair bound since that time Obstructive sleep apnea on CPAP therapy Leukocytosis Fever Trigeminal neuralgia chronic Plan: DC Sunday on Check labs in am Will need Urology follow up with Dr Ndiaye for enlarging SP stoma site Scribed by Vanessa Quezada under the direct supervision of Dr. Serrano. Reason Hospital Visit/Course Weakness Notes from 12/08/16: Chart Review: No Fever Vitals stable WBC 10 Hgb 9.1 CMP normal except AST/ALT - 149/159 Check labs on Sunday SW Review: She still wants to go home Therapy assessed her this morning for transfers The was present and was okay with whatever the pt wants to do; however, thinks fdc is best We can go ahead and send her home and if she fails go to the nursing facility; or we can use an analytics intern step to a nursing facility I want to do fdc and then after two weeks if she is better we can send her home [facility] Patient Interview: I educated the pt that we probably need to do some fdc before we let her go home I am hesitant that going home now would be dangerous I think that this is a necessary step and she and the family feel that this is a good idea I think that this will be a matter of 1-2 weeks if she is doing well I also educated her that Dr. Ndiaye will likely need to modify the entry site for the catheter Pt states that Dr. Marshall actually placed the catheter in the pt and that is who they typically use; however, they are considering a new physician closer to home The lungs sounded pretty good today I educated her that her liver enzymes were a little elevated and this is likely due to medication I want to be sure we stay off the Tylenol for now to prevent this continuing to increase Pt is supposed to receive her infusion today no fever, vital signs stable, pleasant Regular rate and rhythm, clear to auscultation bilaterally was subtle wheezes upper lobes but much improved Plan: Pt will be admitted fdc to [facility] [place] Minimize Tylenol products on all medications Recheck labs on Sunday with AST/ALT Dr. Ndiaye re-evaluate the insertion of the catheter Check infusion that is scheduled for today DC likely today Scribed by Vanessa Quezada under the direct supervision of Dr. Serrano. Hospital course: Patient uneventful swing bed course she completed her meropenem IV antibiotics and was monitored closely. Her labs remained normal she overall did well but long-term prognosis extremely guarded she will go home to the snf on skilled therapy with intention to return home but the prognosis is overall extremely poor. Discharge Summary Discharge Physical Examination Allergies: Coded Allergies: Penicillins (Unverified Allergy, Mild, PT ABLE TO TOLERATE ROCEPHIN, 06/01) oxycodone (Unverified Allergy, Mild, 06/19/06) adhesive (Unverified Allergy, Unknown, 01/06/14) codeine (Verified Allergy, Unknown, 04/19/15) hydrocodone (Verified Allergy, Unknown, 05/31/12) lanolin (Verified Allergy, Unknown, 05/31/12) sulfamethoxazole (Verified Allergy, Unknown, 05/31/12) trimethoprim (Verified Allergy, Unknown, 05/31/12) enoxaparin (Unverified Adverse Reaction, Mild, CHANGES IN MENTATION, ) latex (Unverified Adverse Reaction, Mild, BLADDER INFECTION W/ LATEX CATHETER, 09/23/10) Uncoded Allergies: TEGADERM (Allergy, Mild, RASH, 09/23/10) HEPARIN (Adverse Reaction, Mild, CHANGES IN MENTATION, 09/23/10) Vitals & I&Os Vital Signs Date Time Temp Pulse Resp B/P (MAP) Pulse Ox O2 Delivery O2 Flow Rate FiO2 12/08/16 10:41 95 2.00 12/08/16 06:41 97.9 80 20 156/84 Hospital Course Labs (last 24 hrs) Laboratory Tests 12/08/16 05:25: White Blood Count 10.1, Red Blood Count 3.97L, Hemoglobin 9.1L, Hematocrit 32L, Mean Corpuscular Volume 80, Mean Corpuscular Hemoglobin 23L, Mean Corpuscular Hemoglobin Concent 29L, Red Cell Distribution Width 19.4H, Platelet Count 449H, Mean Platelet Volume 9.5, Neutrophils (%) (Auto) 78H, Lymphocytes (%) (Auto) 15 , Monocytes (%) (Auto) 6, Eosinophils (%) (Auto) 0, Basophils (%) (Auto) 0, Neutrophils # (Auto) 7.9H, Lymphocytes # (Auto) 1.6, Monocytes # (Auto) 0.7, Eosinophils # (Auto) 0.0, Basophils # (Auto) 0.0, Sodium Level 142, Potassium Level 4.1, Chloride Level 104, Carbon Dioxide Level 30, Anion Gap 8, Blood Urea Nitrogen 27H, Creatinine 0.53L, Estimat Glomerular Filtration Rate > 60, BUN/ Creatinine Ratio 51, Glucose Level 144H, Calcium Level 9.1, Total Bilirubin 0.2 , Aspartate Amino Transf (AST/SGOT) 149H, Alanine Aminotransferase (ALT/SGPT) 159H, Alkaline Phosphatase 74, Total Protein 6.2L, Albumin 3.1L Pending Labs Laboratory Tests 12/08/16 05:25: White Blood Count 10.1, Red Blood Count 3.97, Hemoglobin 9.1, Hematocrit 32, Mean Corpuscular Volume 80, Mean Corpuscular Hemoglobin 23, Mean Corpuscular Hemoglobin Concent 29, Red Cell Distribution Width 19.4, Platelet Count 449, Mean Platelet Volume 9.5, Neutrophils (%) (Auto) 78, Lymphocytes (%) (Auto) 15, Monocytes (%) (Auto) 6, Eosinophils (%) (Auto) 0, Basophils (%) (Auto) 0, Neutrophils # (Auto) 7.9, Lymphocytes # (Auto) 1.6, Monocytes # (Auto) 0.7, Eosinophils # (Auto) 0.0, Basophils # (Auto) 0.0, Sodium Level 142, Potassium Level 4.1, Chloride Level 104, Carbon Dioxide Level 30, Anion Gap 8, Blood Urea Nitrogen 27, Creatinine 0.53, Estimat Glomerular Filtration Rate > 60, BUN/ Creatinine Ratio 51, Glucose Level 144, Calcium Level 9.1, Total Bilirubin 0.2, Aspartate Amino Transf (AST/SGOT) 149, Alanine Aminotransferase (ALT/SGPT) 159, Alkaline Phosphatase 74, Total Protein 6.2, Albumin 3.1 Discharge Home Medications: Active Scripts Active Alprazolam 0.25 Mg Tablet 0.25 Mg PO TID PRN Oxycodone HCl 10 Mg Tablet 10 Mg PO Q4H PRN Reported Iprat-Albut 0.5-3(2.5) mg/3 ml (Ipratropium/Albuterol Sulfate) 3 Ml Ampul.neb 3 Ml IH QID Hizentra (Immune Globulin,Gamma(IgG)) 10 Gm/50 Ml Vial 10 Gm SQ WEEK WEEKLY EVERY SUNDAY INFUSE OVER 1 HOUR VIA PUMP Dexamethasone Sodium Phosphate (Dexamethasone Sod Phosphate) 4 Mg/1 Ml Vial 4 Mg IM MONTHLY Depo-Medrol (Methylprednisolone Acetate) 80 Mg/1 Ml Vial 80 Mg IM MONTHLY Combigan Eye Drops (Brimonidine Tartrate/Timolol) 5 Ml Drops 1 Drop OS BID Cranberry 12,600 mg Softgel (Cranberry Conc/Ascorbic Acid) 1 Each Capsule 1 Cap PO DAILY Fludrocortisone Acetate 0.1 Mg Tab 0.2 Mg PO DAILY TAKES 2 (0.1MG) TABLETS Omeprazole 40 Mg Capsule.dr 40 Mg PO DAILY Tegretol Xr (Carbamazepine) 100 Mg Tab 100 Mg PO 1200,1700 Diltiazem HCl 90 Mg Tablet 90 Mg PO TID Ondansetron Odt (Ondansetron) 4 Mg Tab.rapdis 4 Mg PO Q8H PRN Aleve (Naproxen Sodium) 220 Mg Tablet 220 Mg PO Q8H PRN Hydrocortisone 20 Mg Tablet 10 Mg PO 1600 TAKES 1/2 (20MG) TABLET Potassium Chloride 10 Meq Capsule.er 10 Meq PO QID Escitalopram Oxalate 10 Mg Tablet 10 Mg PO 1600 Tegretol Xr (Carbamazepine) 100 Mg Tab 200 Mg PO 0500,2000 TAKES 2 (100MG) TABLETS Calcium 600 + Vit D 400 Caplet (Calcium Carbonate/Vitamin D3) 1 Each Tablet 1 Tab PO DAILY Acidophilus Lactobacillus (Lactobacillus Acidophilus) 1 Each Capsule 1 Cap PO 1200 Mucinex Dm (Non-Formulary) (Guaifenesin/Dextromethorphan) 1 Each Tab 1 Tab PO 0500,1600 Miralax 17 Gm Packet (Polyethylene Glycol) 17 Gm Pack 17 Gm PO DAILY Loratadine 10 Mg Tablet 10 Mg PO DAILY Hydrocortisone 20 Mg Tablet 20 Mg PO 0800 Multiple Vitamin (Multivitamins) 1 Tab Tablet 1 Tab PO HS Flonase Nasal [place] (Fluticasone Propionate) 16 Gm Naspr 2 [place] NS DAILY Instructions to patient/family Please see electonic discharge instructions given to patient. Clinical Quality Measures DVT/VTE Risk/Contraindication: Risk Factor Score Per Nursin RFS Level Per Nursing on Admit: 4+=Very High INEZ SERRANO DO Dec 08, 2016 11:10
[2016-12-08] MEDS: LACTOBACILLUS Acidoph/Bulgar (LACTINEX/FLORANEX) TAB PO SCH (11:37)
[2016-12-08] MEDS: CARBAMAZEPINE 100 MG PO SCH (11:38)
[2016-12-08] MEDS: ALPRAZolam 0.25 MG (XANAX) TAB PO PRN (11:50)
[2016-12-08] MEDS: PROMETHAZINE INJ 25 MG/ML (PHENERGAN) AMP IVP PRN (13:59)
--- NOTE | 2016-12-08 15:09 | Therapy Team Discharge Summary ---
Therapy Discharge Summary Discharge Recommendations Date of Discharge 12-08-16 Therapy D/C Recommendations: Pen[facility]iary (TCU/NH) Occupational Therapy Pt seen for skilled OT to increase her independence in self feeding. On admission pt was dependant for all basic ADLs, including feeding and she had been able to feed herself prior to recent illness. Adapted equipment provided including Luis M cup and built up silverware. Also discussed using brace for neck support to facilitate eating. By discharge pt was still very fatigued and able to feed herself only a couple bites. Dependant eating, grooming and toileting. Pt discharged to skilled to increase strength to be able to return home with caregivers. See tx plan for goals met. DC OT PT Seamless Tube Roller Goals [facility] Goals PT Seamless Tube Roller Goals Time Frame: Dec 19, 2016 Transfers (B,C,W/C) (FIM): 1 Sit to Lying (QC): 1 Lying-Sitting on Side/Bed(QC): 1 Sit to Stand (QC): 1 Rollin Chair/Izm-rj-Jmibi Xfer(QC): 1 Does the Patient Walk: No and Walking Goal NOT indicated OT Seamless Tube Roller Goals Seamless Tube Roller Goals Time Frame: Dec 19, 2016 Eating (FIM): 5 (not met) Eating (QC): 5 (not met) Additional Goals: 2-Verbalize Understanding, 3-ImproveStrength/Kaylene 1=Demonstrate adherence to instructed precautions during ADL tasks. 2=Patient will verbalize/demonstrate understanding of assistive devices/ modifications for ADL. 3=Patient will improve strength/tolerance for activity to enable patient to perform ADL's. ASPEN SANTANA OT Dec 08, 2016 15:09
[2016-12-08 15:40] VITALS: BP 156/84
--- NOTE | 2016-12-11 10:52 | Therapy Team Discharge Summary ---
Therapy Discharge Summary Discharge Recommendations Date of Discharge Dec 08, 2016 at 15:40 Therapy D/C Recommendations: Assisted (TCU/DC) Physical Therapy Patient dismissed to DC for continued care due to patient is unsafe to return to home with spouse and caregivers due to dependent care. Patient demonstrates inability to assist with bed mobility and transfers and spouse is unable to assist with care at home. PT to continue at DC. Goals not attained. PT Interactive Project Manager Goals Nursing Home Goals PT Nursing Home Goals Time Frame: Dec 19, 2016 Transfers (B,C,W/C) (FIM): 1 Sit to Lying (QC): 1 Lying-Sitting on Side/Bed(QC): 1 Sit to Stand (QC): 1 Rollin Chair/Qvv-pp-Tspxz Xfer(QC): 1 Does the Patient Walk: No and Walking Goal NOT indicated OT Nursing Home Goals Interactive Project Manager Goals Time Frame: Dec 19, 2016 Eating (FIM): 5 (not met) Eating (QC): 5 (not met) Additional Goals: 2-Verbalize Understanding, 3-ImproveStrength/Kaylene 1=Demonstrate adherence to instructed precautions during ADL tasks. 2=Patient will verbalize/demonstrate understanding of assistive devices/ modifications for ADL. 3=Patient will improve strength/tolerance for activity to enable patient to perform ADL's. CHANDRAKANT FELIX PT Dec 11, 2016 10:51
== END 2016-12-08 15:40 | DRG 699 ==
LOC: 4TH 12:39
PROVIDERS: ADMIT Internal Medicine; ATTEND Internal Medicine
DX: T83.510A Infection and inflammatory reaction due to cystostomy catheter, initial encounter (principal); N39.0 Urinary tract infection, site not specified; J44.0 Chronic obstructive pulmonary disease with (acute) lower respiratory infection; J20.9 Acute bronchitis, unspecified; D80.3 Selective deficiency of immunoglobulin G [IgG] subclasses; G47.33 Obstructive sleep apnea (adult) (pediatric); I10 Essential (primary) hypertension; N31.9 Neuromuscular dysfunction of bladder, unspecified; G50.0 Trigeminal neuralgia; R13.10 Dysphagia, unspecified; K59.09 Other constipation; E27.9 Disorder of adrenal gland, unspecified; H54.3 Unqualified visual loss, both eyes; K21.9 Gastro-esophageal reflux disease without esophagitis; F32.9 Major depressive disorder, single episode, unspecified; F41.9 Anxiety disorder, unspecified; B96.20 Unspecified Escherichia coli [E. coli] as the cause of diseases classified elsewhere; B96.4 Proteus (mirabilis) (morganii) as the cause of diseases classified elsewhere; B96.89 Other specified bacterial agents as the cause of diseases classified elsewhere; Z87.820 Personal history of traumatic brain injury
CPT/HCPCS: 36415; 80053; 85025; 94640; 94760

== ENCOUNTER → 2016-12-16 | Outpatient (CLI) | payer MEDICARE, OTHER, MEDICAID ==
[~2016-12-16] MED LIST changes: +IPRA3AMP IH; +OXYC10TA7 PO
[2016-12-16 15:39] LABS: BILIRUBIN,URINE NEGATIVE (NEGATIVE); KETONES,URINE NEGATIVE (NEGATIVE); LEUKOCYTE ESTERASE ,URINE 3+ (NEGATIVE); NITRITE,URINE POSITIVE (NEGATIVE); PH,URINE 6 (5-9); PROTEIN,URINE 3+ (NEGATIVE); UROBILINOGEN,URINE NORMAL (NORMAL)
[2016-12-16 16:18] LABS: WBC,URINE TNTC /HPF
== END ==
LOC: CVS 15:28
PROVIDERS: ATTEND Family Medicine
DX: R82.90 Unspecified abnormal findings in urine (principal); Z87.440 Personal history of urinary (tract) infections; Z93.6 Other artificial openings of urinary tract status
CPT/HCPCS: 81000; 87077; 87088; 87186

== ENCOUNTER → 2017-01-09 | Outpatient (CLI) | payer MEDICARE, OTHER, MEDICAID ==
[2017-01-09 20:23] LABS: PH,URINE 7 (5-9)
[2017-01-09 20:24] LABS: BILIRUBIN,URINE NEGATIVE (NEGATIVE); KETONES,URINE NEGATIVE (NEGATIVE); LEUKOCYTE ESTERASE ,URINE 3+ (NEGATIVE); NITRITE,URINE NEGATIVE (NEGATIVE); PROTEIN,URINE 1+ (NEGATIVE); UROBILINOGEN,URINE NORMAL (NORMAL)
[2017-01-09 20:40] LABS: WBC,URINE >100 /HPF
[2017-01-09 20:42] LABS: CALCIUM OXALATE CRYSTALS,UR RARE /LPF
== END ==
LOC: CVS 20:18
PROVIDERS: ATTEND Family Medicine
DX: N39.0 Urinary tract infection, site not specified (principal)
CPT/HCPCS: 81000; 87077; 87088; 87186

== ENCOUNTER → 2017-01-22 | Outpatient (CLI) | payer MEDICARE, OTHER, MEDICAID ==
[~2017-01-22] MED LIST changes: +C250T PO; +DOCU100C37 PO; +DULO30CA48 PO; +FLUC150T PO; +METO5TAB2 PO; +NITR100C10 PO; +ONDA4TAB10 PO; +OXYC-202 PO
[2017-01-22 23:50] LABS: BILIRUBIN,URINE NEGATIVE (NEGATIVE); KETONES,URINE 1+ (NEGATIVE); LEUKOCYTE ESTERASE ,URINE 3+ (NEGATIVE); NITRITE,URINE NEGATIVE (NEGATIVE); PH,URINE 6 (5-9); PROTEIN,URINE 2+ (NEGATIVE); UROBILINOGEN,URINE NORMAL (NORMAL)
[2017-01-23 00:04] LABS: WBC,URINE TNTC /HPF
[2017-01-23 00:05] LABS: CALCIUM OXALATE CRYSTALS,UR FEW /LPF; SQUAMOUS EPITHELIAL CELL,UR 0-2 /HPF; YEAST,URINE LARGE /HPF
== END ==
LOC: CVS 23:46
PROVIDERS: ATTEND Family Medicine
DX: Z09 Encounter for follow-up examination after completed treatment for conditions other than malignant neoplasm (principal); N39.0 Urinary tract infection, site not specified
CPT/HCPCS: 81000; 87077; 87088; 87186

== ENCOUNTER 2017-01-26 09:36 | Inpatient (IN) | payer MEDICARE, OTHER, MEDICAID ==
[2017-01-26] VITALS (11 sets, daily range): BP systolic 80–204; BP diastolic 48–174
[~2017-01-26] VITALS: Ht 162.6 cm; Wt 69.4 kg
[~2017-01-26 09:36] MED LIST changes: -C250T PO; -DOCU100C37 PO; -DULO30CA48 PO; -FLUC150T PO; -METO5TAB2 PO; -NITR100C10 PO; -ONDA4TAB10 PO; -OXYC-202 PO
[2017-01-26] MEDS ORDERED: RT-ALBUTEROL SULF 2.5 MG/3 ML PRE-MIX VIAL ONE (09:49)
[2017-01-26] MEDS ORDERED: RT-IPRATROPIUM (ATROVENT) 0.5MG/2.5ML AMP IH ONE (09:49)
[2017-01-26] MEDS ORDERED: CEFEPIME INJECTION 2,000 MG in NS (IVPB) 50 ML IV ONE (10:00)
[2017-01-26 10:15] LABS: BASOPHILS % (AUTO) 0 % (0-10); EOSINOPHILS # (AUTO) 0.1 10^3/uL (0.0-0.3); EOSINOPHILS % (AUTO) 1 % (0-10); LYMPHOCYTES # (AUTO) 2.5 X 10^3 (1.0-4.0); LYMPHOCYTES % (AUTO) 48 % (12-44); MEAN CORPUSCULAR HEMOGLOBIN 25 PG (25-34); MEAN CORPUSCULAR HGB CONC 30 G/DL (32-36); MEAN CORPUSCULAR VOLUME 81 FL (80-99); MEAN PLATELET VOLUME 9.9 FL (7.4-10.4); MONOCYTES # (AUTO) 0.1 X 10^3 (0.0-1.0); MONOCYTES % (AUTO) 3 % (0-12); NEUTROPHILS # (AUTO) 2.5 X 10^3 (1.8-7.8); NEUTROPHILS % (AUTO) 48 % (42-75); PLATELET COUNT 377 10^3/uL (130-400); RED BLOOD COUNT 4.83 10^6/uL (4.35-5.85); RED CELL DISTRIBUTION WIDTH 20.7 % (10.0-14.5); WHITE BLOOD COUNT 5.2 10^3/uL (4.3-11.0)
[2017-01-26] MEDS ORDERED: NS IV 1000 ML 2,000 ML IV PRN (10:15)
--- NOTE | 2017-01-26 10:15 | ED General ---
General Chief Complaint: Unresponsive Stated Complaint: LOW LOC Nursing Triage Note: TO ED PER EMS PATIENT IS BEING TREATED FOR UTI. REPORTS SHE WENT UNRESPONSIVE AROUND 4A Nursing Sepsis Screen: No Definite Risk Source of Information: Patient, EMS, Family Exam Limitations: Other (the patient's medical condition) History of Present Illness Time Seen by Provider: 09:30 Initial Comments This 66-year-old white female presents to the detention with a history of increasing respiratory distress and within the last 2 hours and unresponsive state. The patient had been started on Macrobid at the detention by Dr. Cesar Kaur yesterday. The patient is also another care Dr. Vera. The patient has had long-standing anoxic brain injury and is in the process of being transferred to hospice care. Patient is allergic to penicillin and sulfa. On roving department end finder arrival patient was unresponsive and hypoxic. She was transported to the emergency department for further evaluation and care. Allergies and Home Medications Allergies Coded Allergies: Penicillins (Unverified Allergy, Mild, PT ABLE TO TOLERATE ROCEPHIN, 06/01) oxycodone (Unverified Allergy, Mild, 06/19/06) adhesive (Unverified Allergy, Unknown, 01/06/14) codeine (Verified Allergy, Unknown, 04/19/15) hydrocodone (Verified Allergy, Unknown, 05/31/12) lanolin (Verified Allergy, Unknown, 05/31/12) sulfamethoxazole (Verified Allergy, Unknown, 05/31/12) trimethoprim (Verified Allergy, Unknown, 05/31/12) enoxaparin (Unverified Adverse Reaction, Mild, CHANGES IN MENTATION, ) latex (Unverified Adverse Reaction, Mild, BLADDER INFECTION W/ LATEX CATHETER, 09/23/10) Uncoded Allergies: TEGADERM (Allergy, Mild, RASH, 09/23/10) HEPARIN (Adverse Reaction, Mild, CHANGES IN MENTATION, 09/23/10) Home Medications Alprazolam 0.25 Mg Tablet, 0.25 MG PO TID PRN for ANXIETY, #30 Prescribed by: INEZ SERRANO on 12/08/16 1042 Brimonidine Tartrate/Timolol 5 Ml Drops, 1 DROP OS BID, (Reported) Calcium Carbonate/Vitamin D3 1 Each Tablet, 1 TAB PO DAILY, (Reported) Carbamazepine 100 Mg Tab, 200 MG PO 0500,2000, (Reported) TAKES 2 (100MG) TABLETS Carbamazepine 100 Mg Tab, 100 MG PO 1200,1700, (Reported) Cranberry Conc/Ascorbic Acid 1 Each Capsule, 1 CAP PO DAILY, (Reported) Dexamethasone Sod Phosphate 4 Mg/1 Ml Vial, 4 MG IM MONTHLY, (Reported) Diltiazem HCl 90 Mg Tablet, 90 MG PO TID, (Reported) Escitalopram Oxalate 10 Mg Tablet, 10 MG PO 1600, (Reported) Fludrocortisone Acetate 0.1 Mg Tab, 0.2 MG PO DAILY, (Reported) TAKES 2 (0.1MG) TABLETS Fluticasone Propionate 16 Gm Naspr, 2 SPRAY NS DAILY, (Reported) Guaifenesin/Dextromethorphan 1 Each Tab, 1 TAB PO 0500,1600, (Reported) Hydrocortisone 20 Mg Tablet, 20 MG PO 0800, (Reported) Hydrocortisone 20 Mg Tablet, 10 MG PO 1600, (Reported) TAKES 1/2 (20MG) TABLET Immune Globulin,Gamma(IgG) 10 Gm/50 Ml Vial, 10 GM SQ WEEK, (Reported) WEEKLY EVERY SUNDAY INFUSE OVER 1 HOUR VIA PUMP Ipratropium/Albuterol Sulfate 3 Ml Ampul.neb, 3 ML IH QID, (Reported) Lactobacillus Acidophilus 1 Each Capsule, 1 CAP PO 1200, (Reported) Loratadine 10 Mg Tablet, 10 MG PO DAILY, (Reported) Methylprednisolone Acetate 80 Mg/1 Ml Vial, 80 MG IM MONTHLY, (Reported) Multivitamins 1 Tab Tablet, 1 TAB PO HS, (Reported) Naproxen Sodium 220 Mg Tablet, 220 MG PO Q8H PRN for PAIN, (Reported) Omeprazole 40 Mg Capsule.dr, 40 MG PO DAILY, (Reported) Ondansetron 4 Mg Tab.rapdis, 4 MG PO Q8H PRN for NAUSEA, (Reported) Oxycodone HCl 10 Mg Tablet, 10 MG PO Q4H PRN for PAIN-MODERATE, #60 Prescribed by: INEZ SERRANO on 12/08/16 1042 Polyethylene Glycol 17 Gm Pack, 17 GM PO DAILY, (Reported) Potassium Chloride 10 Meq Capsule.er, 10 MEQ PO QID, (Reported) Constitutional: fever EENTM: no symptoms reported Respiratory: cough, short of breath Cardiovascular: No chest pain Gastrointestinal: No abdominal pain, nausea, vomiting Genitourinary: No dysuria, No frequency : No Musculoskeletal: no symptoms reported Skin: no symptoms reported Psychiatric/Neurological: No Symptoms Reported Hematologic/Lymphatic: No Symptoms Reported Past [id number]-[id number] Hx Patient Social History Alcohol Use: Denies Use Recreational Drug Use: No Smoking Status: Never a Smoker 2nd Hand Smoke Exposure: No Recent Foreign Travel: No Contact w/Someone Who Travel: No Recent Infectious Disease Expo: No Recent Hopitalizations: No Immunizations Up To Date Tetanus Booster (TDap): Unknown PED Vaccines UTD: No Date of Pneumonia Vaccine: Dec 07, 2009 Date of Influenza Vaccine: Mar 09, 2016 Seasonal Allergies Seasonal Allergies: No Surgeries HX Surgeries: Yes (BRAIN, PEG TUBE, suprapubic catheter, BROKEN LEG PLATES/ SCREWS) Surgeries: Orthopedic, Tracheostomy, Urinary Diversion Respiratory Hx Respiratory Disorders: Yes (HAS CPAP-GETTING USED TO WEARING IT, CHRONIC RESPIRATORY INSUFFICIENCY) Respiratory Disorders: Pneumonia, Chronic Bronchitis, Sleep Apnea Cardiovascular Hx Cardiac Disorders: Yes Cardiac Disorders: Hypertension Neurological Hx Neurological Disorders: Yes (ANOXIC BRAIN INJURY, TRIGEMINAL NERVE PAIN) Neurological Disorders: Stroke Reproductive System Hx Reproductive Disorders: No Sexually Transmitted Disease: No HIV/AIDS: No 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 Genitourinary Hx Genitourinary Disorders: Yes (SUPRAPUBIC CATHETER) Genitourinary Disorders: Bladder Infection, Neurogenic Bladder, UTI-Chronic Gastrointestinal Hx Gastrointestinal Disorders: Yes (Dysphagia) Gastrointestinal Disorders: Gastroesophageal Reflux, Chronic Constipation Musculoskeletal Hx Musculoskeletal Disorders: Yes (L LEG FX, TOTAL CARE AFTER ANOXIC SPELL) Musculoskeletal Disorders: Osteoporosis, Fractures Endocrine Hx Endocrine Disorders: No Endocrine Disorders: Adrenal Disease HEENT HX ENT Disorders: Yes (TRIGEMINAL NERVE PROBLEMS/ SWALLOWING PROBLEMS AT TIMES) Loss of Vision: Bilateral Hearing Impairment: Denies Cancer Hx Cancer: No Psychosocial Hx Psychiatric Problems: Yes (XANAX-NOT VERY OFTEN) Behavioral Health Disorders: Anxiety, Depression Integumentary HX Skin/Integumentary Disorder: No Blood Transfusions Hx Blood Disorders: Yes (immunoglobulin deficiency) Adverse Reaction to a Blood Tr: No Reviewed Nursing Assessment Reviewed/Agree w Nursing PMH: Yes Family Medical History Significant Family History: No Pertinent Family Hx Family Medial History: Patient reports no known family medical history. Physical Exam-Suspected Sepsis Physical Exam Vital Signs Vital Sign - Last 12Hours 01/26/17 01/26/17 09:36 09:57 Temp 98.2 Pulse 139 Resp 16 B/P (MAP) 99/84 Pulse Ox 84 O2 Delivery Non Rebreather O2 Flow Rate 15.00 Capillary Refill : Greater Than 3 Seconds Blood Pressure Mean: 89 General Appearance: Cachetic, Other (patient is unresponsive.) HEENT: Other (ENT exam demonstrates an intact stoma. The patient is unresponsive. She is diaphoretic.) Neck: Other (is difficult to assess patient's neck on physical exam given her physical condition but it does not appear that the patient has galen nuchal rigidity.) Respiratory: Other (decreased breath sounds with rales bilaterally were appreciated on auscultation of the chest) Cardiovascular: Tachycardia (patient demonstrated tachycardia but I did not appreciate a significant murmur or gallop.) Gastrointestinal: Abnormal Bowel Sounds (hypoactive bowel sounds. No rebound was noted) Extremity: Other (diffuse bruising was appreciated. There was poor skin turgor and peripheral edema.) Neurologic/Psychiatric: Other (the patient is at best poorly responsive to painful stimuli and will move 4 extremities minimally) Skin: ecchymosis, No jaundice Focused Exam Lactic Acid Level Laboratory Tests Test 01/26/17 09:46 Lactic Acid Level 3.80 MMOL/L (0.50-2.00) *H Progress/Results/Core Measures Suspected Sepsis Recent Fever Within 48 Hours: No Infection Criteria Present: Suspected New Infection New/Unexplained Altered Menta: Yes Sepsis Screen: No Definite Risk Sepsis Diagnosis: SIRS Temperature:98.2 Pulse: 139 Respiratory Rate: 16 Laboratory Tests 01/26/17 09:46: White Blood Count 5.2 Blood Pressure 99 /84 Mean: 89 Laboratory Tests 01/26/17 09:46: Creatinine 0.95, Platelet Count 377, Total Bilirubin 0.5 Results/Orders Lab Results Laboratory Tests Test 01/26/17 09:46 Range/Units White Blood Count 5.2 4.3-11.0 10^3/uL Red Blood Count 4.83 4.35-5.85 10^6/uL Hemoglobin 11.9 11.5-16.0 G/DL Hematocrit 39 35-52 % Mean Corpuscular Volume 81 80-99 FL Mean Corpuscular Hemoglobin 25 25-34 PG Mean Corpuscular Hemoglobin Concent 30 L 32-36 G/DL Red Cell Distribution Width 20.7 H 10.0-14.5 % Platelet Count 377 130-400 10^3/uL Mean Platelet Volume 9.9 7.4-10.4 FL Neutrophils (%) (Auto) 48 42-75 % Lymphocytes (%) (Auto) 48 H 12-44 % Monocytes (%) (Auto) 3 0-12 % Eosinophils (%) (Auto) 1 0-10 % Basophils (%) (Auto) 0 0-10 % Neutrophils # (Auto) 2.5 1.8-7.8 X 10^3 Lymphocytes # (Auto) 2.5 1.0-4.0 X 10^3 Monocytes # (Auto) 0.1 0.0-1.0 X 10^3 Eosinophils # (Auto) 0.1 0.0-0.3 10^3/uL Basophils # (Auto) 0.0 0.0-0.1 10^3/uL Neutrophils % (Manual) 4 % Lymphocytes % (Manual) 56 % Monocytes % (Manual) 4 % Eosinophils % (Manual) 2 % Basophils % (Manual) 2 % Metamyelocytes % 1 % Myelocytes % 2 % Band Neutrophils 29 % Poikilocytosis SLIGHT Anisocytosis SLIGHT Elliptocytes SLIGHT Urine Color YELLOW Urine Clarity CLEAR Urine pH 5 5-9 Urine Specific [place] 1.015 L 1.016-1.022 Urine Protein 3+ H NEGATIVE Urine Glucose (UA) NEGATIVE NEGATIVE Urine Ketones 1+ H NEGATIVE Urine Nitrite NEGATIVE NEGATIVE Urine Bilirubin 1+ H NEGATIVE Urine Urobilinogen 1 NORMAL MG/DL Urine Leukocyte Esterase 3+ H NEGATIVE Urine RBC (Auto) 5+ H NEGATIVE Urine RBC 25-50 H /HPF Urine WBC >100 H /HPF Urine Squamous Epithelial Cells RARE /HPF Urine Crystals PRESENT H /LPF Urine Calcium Oxalate Crystals RARE H /LPF Urine Bacteria LARGE H /HPF Urine Casts NONE /LPF Urine Mucus SMALL H /LPF Urine Yeast MODERATE H /HPF Urine Culture Indicated YES Sodium Level 140 135-145 MMOL/L Potassium Level 4.1 3.6-5.0 MMOL/L Chloride Level 100 98-107 MMOL/L Carbon Dioxide Level 24 21-32 MMOL/L Anion Gap 16 H 5-14 MMOL/L Blood Urea Nitrogen 21 H 7-18 MG/DL Creatinine 0.95 0.60-1.30 MG/DL Estimat Glomerular Filtration Rate 58 BUN/Creatinine Ratio 22 Glucose Level 119 H 70-105 MG/DL Lactic Acid Level 3.80 *H 0.50-2.00 MMOL/L Calcium Level 10.1 8.5-10.1 MG/DL Total Bilirubin 0.5 0.1-1.0 MG/DL Aspartate Amino Transf (AST/SGOT) 29 5-34 U/L Alanine Aminotransferase (ALT/SGPT) 39 0-55 U/L Alkaline Phosphatase 120 40-136 U/L Total Protein 6.5 6.4-8.2 GM/DL Albumin 3.1 L 3.2-4.5 GM/DL My Orders Orders - FRANC MONTE MD Ipratropium 0.02% Neb Solution (Atrovent (01/26/17 09:49) Albuterol Pre-Mix Nebs (Rt) (Proventil P (01/26/17 09:49) Cbc With Automated Diff (01/26/17 09:46) Blood Culture (01/26/17 09:46) Lactic Acid Analyzer (01/26/17 09:46) Comprehensive Metabolic Panel (01/26/17 09:46) Ua Culture If Indicated (01/26/17 09:46) Cefepime Injection (Maxipime Injection) (01/26/17 10:00) Chest 1 View, Ap/Pa Only (01/26/17 10:10) Pallative Care-Rfs (01/26/17 10:15) Saline Lock/Iv-Start (01/26/17 10:15) Ns Iv 1000 Ml (Sodium Chloride 0.9%) (01/26/17 10:15) Urine Culture (01/26/17 09:46) Manual Differential (01/26/17 09:46) Medications Given in ED Current Medications Medications Dose Ordered Sig/Octavia Route Start Time Stop Time Status Last Admin Dose Admin Albuterol Sulfate 2.5 mg STK-MED ONCE .ROUTE 01/26/17 09:49 01/26/17 09:56 DC 01/26/17 09:59 15 MG Cefepime HCl 2000 mg/Sodium Chloride 50 ml @ 100 mls/hr ONCE ONCE IV 01/26/17 10:00 01/26/17 10:29 DC 01/26/17 10:27 100 MLS/HR Ipratropium [place] 0.5 mg STK-MED ONCE IH 01/26/17 09:49 01/26/17 09:56 DC 01/26/17 09:59 0.5 MG Vital Signs/I&O Vital Sign - Last 12Hours 01/26/17 01/26/17 09:36 09:57 Temp 98.2 Pulse 139 Resp 16 B/P (MAP) 99/84 Pulse Ox 84 85 O2 Delivery Non Rebreather OxyMask O2 Flow Rate 15.00 Capillary Refill : Greater Than 3 Seconds Blood Pressure Mean: 89 Progress Note : Time: 11:01 Progress Note The patient was initially resuscitated with IV fluids, oxygen, and aggressive respiratory care with constant nebulization and suctioning. A series of significant conversations were undertaken with the patient's , and her son currently in [place], Dr. Cesar Kaur, Dr. Vera, [facility] care, nursing administration, and Dr. Giles. Because of the family's request of no overwhelming or aggressive interventions the patient was given treatment limited to sepsis protocol fluids, appropriate antibiotics, and vigorous respiratory support which excluded and abrasion. Pressors were not started at the family's request. Orders written patient was transferred to the floor to the care of Drs. Kaur and Jody. Departure Communication Time/Spoke to Admitting Phy: 10:[address] Kaur. Time/Spoke to Consulting Physi: 11:00 Communication/Consulting Dr. Vera. Impression Impression: Primary Impression: Respiratory insufficiency Additional Impressions: Sepsis Qualified Codes: A41.9 - Sepsis, unspecified organism Pneumonia Qualified Codes: J18.9 - Pneumonia, unspecified organism Septic shock Disposition: ADMITTED INPATIENT Condition: Unchanged Decision to Admit Reason: Admit from ER (General) Decision to Admit/Date: Jan 26, 2017 Time/Decision to Admit Time: 11:08 Departure-Patient Inst. Referrals: CESAR KAUR MD (PCP/Family) Primary Care Physician FRANC MONTE MD Jan 26, 2017 10:15
[2017-01-26 10:16] LABS: KETONES,URINE 1+ (NEGATIVE); LEUKOCYTE ESTERASE ,URINE 3+ (NEGATIVE); NITRITE,URINE NEGATIVE (NEGATIVE); PH,URINE 5 (5-9); PROTEIN,URINE 3+ (NEGATIVE); UROBILINOGEN,URINE 1 MG/DL (NORMAL)
[2017-01-26 10:26] LABS: ALBUMIN 3.1 GM/DL (3.2-4.5); BILIRUBIN,TOTAL 0.5 MG/DL (0.1-1.0); CALCIUM 10.1 MG/DL (8.5-10.1); CREATININE SERUM 0.95 MG/DL (0.60-1.30); POTASSIUM 4.1 MMOL/L (3.6-5.0); TOTAL PROTEIN 6.5 GM/DL (6.4-8.2)
[2017-01-26 10:30] LABS: BILIRUBIN,URINE 1+ (NEGATIVE); CALCIUM OXALATE CRYSTALS,UR RARE /LPF; SQUAMOUS EPITHELIAL CELL,UR RARE /HPF; WBC,URINE >100 /HPF; YEAST,URINE MODERATE /HPF
--- NOTE | 2017-01-26 10:40 | Diagnostic Imaging Report ---
EXAMINATION: Portable supine radiograph of the chest. INDICATION: Altered mental status. FINDINGS: There are right middle lobe infiltrates and suggestion of infiltrate in the left lung base. The heart size is at the upper limits of normal. There is slight prominence of the interstitial markings which could relate to minimal vascular congestion. No effusion or pneumothorax. The mediastinum and solitario appear unremarkable. There is an infusion port with the tip at the SVC level. IMPRESSION: Bibasilar infiltrates, mostly in the right middle lobe. Dictated by: Dictated on workstation # [id number]
[2017-01-26 10:44] LABS: ANISOCYTOSIS SLIGHT; BAND NEUTROPHILS 29 %; BASOPHILS % (MANUAL) 2 %; EOSINOPHILS % (MANUAL) 2 %; LYMPHOCYTES % (MANUAL) 56 %; METAMYELOCYTES % 1 %; MYELOCYTES % 2 %; NEUTROPHILS % (MANUAL) 4 %; POIKILOCYTOSIS SLIGHT
[2017-01-26] MEDS ORDERED: RT-ALBUTEROL/IPRATROPIUM 3 ML (DUONEB) VIAL IH PRN (11:45)
[2017-01-26] MEDS ORDERED: LEVOFLOXACIN 750 MG/D5W 150 ML PRE-MIX IV NR (11:57)
[2017-01-26] MEDS ORDERED: VANCOMYCIN 1 GM/NS 250 ML IVPB IV NR ×2 (11:58)
[2017-01-26] MEDS ORDERED: morphine INJ 4 MG/ML 1 ML (VIAL/SYRINGE) IVP PRN (12:00)
[2017-01-26] MEDS: NS IV 1000 ML 1,000 ML IV SCH ×2 (12:09→17:13)
--- NOTE | 2017-01-26 12:33 | History & Physical ---
History of Present Illness History of Present Illness Reason for visit/HPI 66 yo F with history of anoxic brain injury and resulting wheelchair bound/ paralysis (due to choking on a hot dog in 2009) admitted for acute deteriation - Pt is a resident of [facility] and this AM, pt's nurse reported she became unresponsive and was taken to the ER. She was hypotensive. Yesterday results from her repeat urine culture came back so she was restarted on macrobid. She has an indwelling catheter and recurrent UTIs (usually denoted by AMS). No recent concerns of respiratory issues leading up to this AM. In talking with pt's today he said she had reported earlier in the week that she needed to see her PCP but could not pinpoint what was making her feel bad. No specific complaint. He reports that she was doing alright earlier in the week- communicating well. But this acute unresponsive event was very sudden in onset. Pt had altered mental status until she was take from ER to 4th floor room 27 and the bed was bumped - she became more alert and told her she loved him. 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 Pt also has adrenal insufficiency - so we will stress dose her. Discussion undertaken with the and Shelly- she is DNR. While in the ER- pt was resuscitated with IVF, antibiotics started and placed on vapotherm. She was transferred up to 427 but on evaluation with Dr. Vera- decision was made to transfer to unit for closer monitoring. Last hospital admission 12/08/16 for multidrug resistant UTI- treated with meropenem. Date of Admission Jan 26, 2017 at 10:13 Date Seen by Provider: Jan 26, 2017 Time Seen by Provider: 13:00 I consulted on this patient on 01/26/17 12:26 Attending Physician Cesar Kaur MD Admitting Physician Cesar Kaur MD Consult Dr. Vera Allergies and Home Medications Allergies Coded Allergies: Penicillins (Unverified Allergy, Mild, PT ABLE TO TOLERATE ROCEPHIN, 06/01) oxycodone (Unverified Allergy, Mild, 06/19/06) adhesive (Unverified Allergy, Unknown, 01/06/14) codeine (Verified Allergy, Unknown, 04/19/15) hydrocodone (Verified Allergy, Unknown, 05/31/12) lanolin (Verified Allergy, Unknown, 05/31/12) sulfamethoxazole (Verified Allergy, Unknown, 05/31/12) trimethoprim (Verified Allergy, Unknown, 05/31/12) enoxaparin (Unverified Adverse Reaction, Mild, CHANGES IN MENTATION, ) latex (Unverified Adverse Reaction, Mild, BLADDER INFECTION W/ LATEX CATHETER, 09/23/10) Uncoded Allergies: TEGADERM (Allergy, Mild, RASH, 09/23/10) HEPARIN (Adverse Reaction, Mild, CHANGES IN MENTATION, 09/23/10) Home Medications Alprazolam 0.25 Mg Tablet, 0.25 MG PO TID PRN for ANXIETY, (Reported) Ascorbic Acid 250 Mg Tab, 500 MG PO DAILY, (Reported) Brimonidine Tartrate/Timolol 5 Ml Drops, 1 DROP OS BID, (Reported) Calcium Carbonate/Vitamin D3 1 Each Tablet, 1 TAB PO DAILY, (Reported) Carbamazepine 100 Mg Tab, 100 MG PO 1200,1700, (Reported) Cranberry Conc/Ascorbic Acid 1 Each Capsule, 1 CAP PO DAILY, (Reported) Dexamethasone Sod Phosphate 4 Mg/1 Ml Vial, 4 MG IM MONTHLY, (Reported) Diltiazem HCl 90 Mg Tablet, 90 MG PO TID, (Reported) Docusate Sodium 100 Mg Capsule, 100 MG PO DAILY, (Reported) Duloxetine HCl 30 Mg Capsule.dr, 30 MG PO BID, (Reported) Fluconazole 150 Mg Tablet, 150 MG PO HS, (Reported) Fludrocortisone Acetate 0.1 Mg Tab, 0.2 MG PO DAILY, (Reported) TAKES 2 (0.1MG) TABLETS Fluticasone Propionate 16 Gm Naspr, 2 SPRAY NS DAILY, (Reported) Guaifenesin/Dextromethorphan 1 Each Tab, 1 TAB PO 0500,1600, (Reported) Hydrocortisone 20 Mg Tablet, 20 MG PO 0800, (Reported) Hydrocortisone 20 Mg Tablet, 10 MG PO 1600, (Reported) TAKES 1/2 (20MG) TABLET Immune Globulin,Gamma(IgG) 10 Gm/50 Ml Vial, 10 GM SQ Fr@0800, (Reported) WEEKLY EVERY SUNDAY INFUSE OVER 1 HOUR VIA PUMP Ipratropium/Albuterol Sulfate 3 Ml Ampul.neb, 3 ML IH QID, (Reported) Lactobacillus Acidophilus 1 Each Capsule, 1 CAP PO 1200, (Reported) Loratadine 10 Mg Tablet, 10 MG PO DAILY, (Reported) Methylprednisolone Acetate 80 Mg/1 Ml Vial, 80 MG IM MONTHLY, (Reported) Metoclopramide HCl 5 Mg Tablet, 5 MG PO QID, (Reported) Multivitamins 1 Tab Tablet, 1 TAB PO HS, (Reported) Naproxen Sodium 220 Mg Tablet, 220 MG PO Q8H PRN for PAIN-MILD, (Reported) Nitrofurantoin Monohyd/M-Cryst 100 Mg Capsule, 100 MG PO Q12H, (Reported) Omeprazole 40 Mg Capsule.dr, 40 MG PO DAILY, (Reported) Ondansetron HCl 4 Mg Tablet, 4 MG PO Q4H PRN for NAUSEA/VOMITING-1ST LINE, ( Reported) Oxybutynin Chloride 5 Mg Tablet, 5 MG PO Q12H, (Reported) Oxycodone HCl/Acetaminophen 1 Each Tablet, 1 TAB PO Q6H PRN for PAIN-MODERATE, ( Reported) Polyethylene Glycol 17 Gm Pack, 17 GM PO DAILY, (Reported) Potassium Chloride 10 Meq Capsule.er, 10 MEQ PO QID, (Reported) Past Xfvoygn-Whjvds-Fxrkbe Hx Patient Social History Alcohol Use: Denies Use Recreational Drug Use: No Smoking Status: Never a Smoker 2nd Hand Smoke Exposure: No Recent Foreign Travel: No Contact w/other who traveled: No Recent Hopitalizations: No Recent Infectious Disease Expo: No Immunizations Up To Date Tetanus Booster (TDap): Unknown Date of Pneumonia Vaccine: Dec 07, 2009 Date of Influenza Vaccine: Mar 09, 2016 Seasonal Allergies Seasonal Allergies: No Surgeries HX Surgeries: Yes (BRAIN, PEG TUBE, suprapubic catheter, BROKEN LEG PLATES/ SCREWS) Surgeries: Orthopedic, Tracheostomy, Urinary Diversion Respiratory Hx Respiratory Disorders: Yes (HAS CPAP-GETTING USED TO WEARING IT, CHRONIC RESPIRATORY INSUFFICIENCY) Respiratory Disorders: Chronic Bronchitis, COPD, Pneumonia, Sleep Apnea Cardiovascular Hx Cardiovascular Disorders: Yes Cardiac Disorders: Hypertension Neurological Hx Neurological Disorders: Yes (ANOXIC BRAIN INJURY, TRIGEMINAL NERVE PAIN) Neurological Disorders: Stroke Reproductive System Hx Reproductive Disorders: No Sexually Transmitted Disease: No HIV/AIDS: No Female Reproductive Disorders: Denies Genitourinary Hx Genitourinary Disorders: Yes (SUPRAPUBIC CATHETER) Genitourinary Disorders: Bladder Infection, Neurogenic Bladder, UTI-Chronic Gastrointestinal Hx Gastrointestinal Disorders: Yes (Dysphagia) Gastrointestinal Disorders: Gastroesophageal Reflux, Chronic Constipation Musculoskeletal Hx Musculoskeletal Disorders: Yes (L LEG FX, TOTAL CARE AFTER ANOXIC SPELL) Musculoskeletal Disorders: Osteoporosis, Fractures Endocrine Hx Endocrine Disorders: No Endocrine Disorders: Adrenal Disease HEENT HX ENT Disorders: Yes (TRIGEMINAL NERVE PROBLEMS/ SWALLOWING PROBLEMS AT TIMES) Loss of Vision: Bilateral Hearing Impairment: Denies Cancer Hx Cancer: No Psychosocial Hx Psychiatric Problems: Yes (XANAX-NOT VERY OFTEN) Behavioral Health Disorders: Anxiety, Depression Integumentary HX Skin/Integumentary Disorder: No Blood Transfusions Hx Blood Disorders: Yes (immunoglobulin deficiency) Adverse Reaction to a Blood Tr: No Reviewed Nursing Assessment Reviewed/Agree w Nursing PMH: Yes Family Medical History Significant Family History: No Pertinent Family Hx Family Hx: Patient reports no known family medical history. Review of Systems Review of Systems ROS Unable to Obtain: difficult to understand General: No Chills, No Night Sweats HEENT: No Head Aches Pulmonary: Dyspnea Cardiovascular: No: Chest Pain Gastrointestinal: Nausea, No: Abdominal Pain, Vomiting Genitourinary: No Dysuria Musculoskeletal: leg pain Neurological: Confusion, Weakness, No: Seizures skin bruising Physical Exam Vital Signs Vital Sign - Last 12Hours 01/26/17 01/26/17 01/26/17 09:36 09:57 12:03 Temp 98.2 Pulse 139 Resp 16 B/P (MAP) 99/84 Pulse Ox 84 O2 Delivery Non Rebreather O2 Flow Rate 15.00 FiO2 100 Capillary Refill : Greater Than 3 Seconds General Appearance: Cachetic, Moderate Distress HEENT: Other (dysconjugate gaze) Respiratory: Chest Non Tender, Decreased Breath Sounds (bases), Other (coarse) Cardiovascular: Irregularly Irregular Gastrointestinal: Non Tender, Soft Rectal: Deferred Back: Other (kyphosis) Extremity: Non Tender, No Pedal Edema, Other (contractures) Neurologic/Psychiatric: No Disoriented x3, No Facial Droop, Other (awake) Skin: Cool, Ecchymosis (arms) Comments focused exam- skin perfused. Assessment/Plan Assessment/Plan Assessment/Plan 66 yo F -Shock with hypotension- barraza culture, broad spectrum abx- IVF, heparin protocol - concern for pulmonary embolism- - acute hypoxic respiratory failure- suspect aspiration and/or Pulmonary embolism- on oxygen- vapotherm , with Bipap on standby- Dr. Vera consulted - nonaggressive therapy. full heparin protocol- for suspected PE - holding on CTA chest - hypotension- IVF- will stress dose her with steroids- -Adrenal insuffiency- solucortef 100mg q8hr iv. (D84.9) h/o immunoglobulin Immunodeficiency - gets IgA on Fridays (J44.0) Chronic obstructive pulmonary disease - Dr. 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 Ndiaye- has a suprapubic catheter. (G93.1) Anoxic brain damage, not elsewhere classified - h/o choking on 2009- wheelchair bound (R13.12) Dysphagia, oropharyngeal phase -npo currently (G89.4) Chronic pain syndrome - on oxycodone as outpt- currently on morphine IV (I10) Essential (primary) hypertension - currently hypotensive- patient family declining pressors. holding home bp meds (F33.8) 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) Anxiety disorder - has xanax as outpt. (K21.9) Gastro-esophageal reflux disease without esophagitis - pantoprazole IV Dispo: poor prognosis- Discussion undertaken with the and Shelly- she is DNR. Ultimate goal is to keep her alive until her son can get here from [place] on Sunday01/28/17. Currently on vapotherm-- Bipap ordered and may be used as long as pt is comfortable and not showing signs of duress. [facility] aware and has held discussions with pt and . Problems: CESAR KAUR MD Jan 26, 2017 12:33
[2017-01-26 12:37] LABS: ABG BASE EXCESS -4.1 MMOL/L (-2.5-2.5); ABG HCO3 20 MMOL/L (23-27); ABG OXYGEN SATURATION 93 % (94-100); ABG PCO2 30 MMHG (35-45); ABG PH 7.43 (7.37-7.43); ABG PO2 67 MMHG (79-93); ABG TCO2 20.7 MMOL/L (21.0-31.0)
[2017-01-26 12:38] LABS: ALLENS TEST YES-POS
[2017-01-26 12:39] LABS: PATIENT TEMP 96.2
[2017-01-26] MEDS: morphine INJ 4 MG/ML 1 ML (VIAL/SYRINGE) IVP PRN ×2 (12:50→17:11)
[2017-01-26] MEDS ORDERED: ENOXAPARIN 40 MG/0.4 ML (LOVENOX) SYR SC SCH (13:00)
[2017-01-26] MEDS: HYDROCORTISONE 100 MG/2 ML (Solu-CORTEF) VIAL IV SCH ×3 (13:30→22:05)
[2017-01-26 13:41] LABS: PROTHROMBIN TIME PATIENT 12.9 SEC (12.2-14.7)
[2017-01-26] MEDS ORDERED: OXYC-202 PO (13:52)
[2017-01-26] MEDS ORDERED: OXYB5TAB9 PO (13:52)
[2017-01-26] MEDS ORDERED: DOCU100C37 PO (13:52)
[2017-01-26] MEDS ORDERED: NITR100C10 PO (13:52)
[2017-01-26] MEDS ORDERED: ONDA4TAB10 PO (13:52)
[2017-01-26] MEDS ORDERED: DULO30CA48 PO (13:52)
[2017-01-26] MEDS ORDERED: C250T PO (13:52)
[2017-01-26] MEDS: RT-ALBUTEROL/IPRATROPIUM 3 ML (DUONEB) VIAL IH SCH ×3 (13:52→22:10)
[2017-01-26] MEDS ORDERED: ALPR0.254 PO (13:52)
[2017-01-26] MEDS ORDERED: METO5TAB2 PO (13:52)
[2017-01-26] MEDS ORDERED: FLUC150T PO (13:52)
[2017-01-26] MEDS: HEParin 1000 UNIT/ML (10ML VIAL) FOR BOLUS IV SCH (13:58)
[2017-01-26] MEDS: HEParin DRIP 25000 UNIT/500ML 500 ML IV SCH (13:59)
[2017-01-26] MEDS ORDERED: MEROPENEM 2,000 MG in NS (IVPB) 100 ML IV SCH (14:00)
[2017-01-26] MEDS: MEROPENEM 500 MG/NS 100 ML IVPB IV SCH ×4 (14:06→17:12)
[2017-01-26] MEDS ORDERED: NS IV 500 ML 500 ML IV ONE ×2 (19:30→23:45)
[2017-01-26] MEDS ORDERED: fentaNYL INJECTION 100 MCG/2 ML AMP ONE (19:40)
[2017-01-26] MEDS ORDERED: fentaNYL INJECTION 100 MCG/2 ML AMP IV PRN (19:40)
[2017-01-26] MEDS: NS IV 500 ML 500 ML IV ONE (20:12)
[2017-01-26] MEDS ORDERED: CEFEPIME 2 GM/NS 50 ML IVPB IV SCH ×2 (21:00)
[2017-01-26] MEDS ORDERED: NON-FORMULARY MEDICATION 1 EA EA (Brimonidine Tartrate/Timolol (Combigan Eye Drops) 1 DROP OS SCH (21:00)
[2017-01-26] MEDS ORDERED: DULoxetine 30 MG (CYMBALTA) CAP PO SCH (21:00)
[2017-01-26] MEDS: BRIMONIDINE 0.2% (ALPHAGAN) OPHTH SOLN 5 ML BTL OS SCH (21:03)
[2017-01-26] MEDS: TIMOLOL MALEATE 0.5% 5 ML (TIMOPTIC) BTL OS SCH (21:03)
[2017-01-26] MEDS: LINEZOLID IVPB 300 ML IV SCH (21:03)
[2017-01-26] MEDS ORDERED: FUROSEMIDE 40 MG/4 ML INJ (LASIX) IV ONE (21:30)
[2017-01-26] MEDS ORDERED: morphine INJ 4 MG/ML 1 ML (VIAL/SYRINGE) ONE (21:56)
[2017-01-26] MEDS: fentaNYL INJECTION 100 MCG/2 ML AMP IV PRN (22:06)
[2017-01-26] MEDS ORDERED: NS IV 500 ML 500 ML ONE (23:27)
[2017-01-27] VITALS (25 sets, daily range): BP systolic 72–137; BP diastolic 42–93
[2017-01-27 00:51] LABS: ALBUMIN 2.2 GM/DL (3.2-4.5); CALCIUM 8.1 MG/DL (8.5-10.1); CREATININE SERUM 1.31 MG/DL (0.60-1.30); MAGNESIUM 1.3 MG/DL (1.8-2.4); POTASSIUM 4.7 MMOL/L (3.6-5.0)
[2017-01-27] MEDS: MEROPENEM 500 MG/NS 100 ML IVPB IV SCH ×8 (01:19→17:45)
[2017-01-27] MEDS ORDERED: D5W 250 ML (IVPB) 250 ML IV ONE ×2 (01:29→01:33)
[2017-01-27] MEDS ORDERED: NOREPINEPHRINE 4 MG/4 ML (LEVOPHED) AMP IV ONE ×2 (01:29→01:33)
[2017-01-27] MEDS ORDERED: NS IV 500 ML 500 ML IV ONE (01:30)
[2017-01-27] MEDS ORDERED: ALBUMIN 5% 12.5 GM/250 ML 250 ML IV ONE (01:30)
[2017-01-27] MEDS ORDERED: SODIUM BICARB 8.4% 50 MEQ/50 ML (ABBOTT) SYR ONE ×2 (01:41)
[2017-01-27] MEDS: RT-ALBUTEROL/IPRATROPIUM 3 ML (DUONEB) VIAL IH SCH ×6 (02:12→22:00)
[2017-01-27] MEDS: NS IV 1000 ML 1,000 ML IV SCH ×3 (02:19→22:45)
[2017-01-27] MEDS: CATHETER FLUSH 10 ML SYR IV PRN (02:24)
[2017-01-27] MEDS ORDERED: MAGNESIUM 1 GM/100 ML IVPB 400 ML IV ONE (02:55)
[2017-01-27] MEDS: NOREPINEPHRINE 4 MG in D5W 250 ML (IVPB) 250 ML IV SCH ×2 (04:51→17:51)
[2017-01-27] MEDS: MAGNESIUM 1 GM/100 ML IVPB IV SCH ×2 (05:00→05:01)
[2017-01-27] MEDS ORDERED: ALBUMIN 5% 12.5 GM/250 ML 500 ML IV ONE (05:00)
[2017-01-27] MEDS ORDERED: SODIUM BICARB 8.4% 50 MEQ/50 ML (ABBOTT) SYR IV ONE (05:00)
[2017-01-27 05:19] LABS: BASOPHILS % (AUTO) 0 % (0-10); EOSINOPHILS % (AUTO) 0 % (0-10); LYMPHOCYTES % (AUTO) 11 % (12-44); MEAN CORPUSCULAR HEMOGLOBIN 24 PG (25-34); MEAN CORPUSCULAR HGB CONC 30 G/DL (32-36); MEAN CORPUSCULAR VOLUME 81 FL (80-99); MEAN PLATELET VOLUME 9.5 FL (7.4-10.4); MONOCYTES # (AUTO) 0.2 X 10^3 (0.0-1.0); MONOCYTES % (AUTO) 2 % (0-12); NEUTROPHILS # (AUTO) 7.7 X 10^3 (1.8-7.8); NEUTROPHILS % (AUTO) 86 % (42-75); PLATELET COUNT 267 10^3/uL (130-400); RED CELL DISTRIBUTION WIDTH 19.7 % (10.0-14.5); WHITE BLOOD COUNT 8.9 10^3/uL (4.3-11.0)
[2017-01-27 05:39] LABS: BAND NEUTROPHILS 52 %; BASOPHILS % (MANUAL) 0 %; EOSINOPHILS % (MANUAL) 0 %; LYMPHOCYTES % (MANUAL) 14 %; METAMYELOCYTES % 10 %; NEUTROPHILS % (MANUAL) 17 %
[2017-01-27 05:40] LABS: ANISOCYTOSIS SLIGHT; HYPOCHROMASIA SLIGHT; POIKILOCYTOSIS MODERATE; POLYCHROMASIA SLIGHT; REACTIVE LYMPHOCYTES 3 %; ROULEAUX SLIGHT; TEAR DROP CELLS SLIGHT
[2017-01-27 05:42] LABS: ALBUMIN 2.7 GM/DL (3.2-4.5); BILIRUBIN,TOTAL 0.6 MG/DL (0.1-1.0); CALCIUM 8.2 MG/DL (8.5-10.1); CREATININE SERUM 1.22 MG/DL (0.60-1.30); POTASSIUM 3.6 MMOL/L (3.6-5.0); TOTAL PROTEIN 5.2 GM/DL (6.4-8.2)
[2017-01-27] MEDS: KCL 20 MEQ TAB (K-DUR) PO SCH (06:25)
[2017-01-27] MEDS: HYDROCORTISONE 100 MG/2 ML (Solu-CORTEF) VIAL IV SCH ×3 (06:25→22:30)
[2017-01-27] MEDS: MAGNESIUM 1 GM/100 ML IVPB 100 ML IV SCH (06:26)
--- NOTE | 2017-01-27 06:59 | Diagnostic Imaging Report ---
INDICATION: Respiratory distress Portable chest 12:35 AM Right IJ Port-A-Cath tip projects over the SVC. There is a right perihilar infiltrate. There is a left perihilar and left basilar infiltrate present. IMPRESSION: Right perihilar, left perihilar and left basilar infiltrates are present and unchanged from previous day. There are no effusions or pneumothoraces. Dictated by: Dictated on workstation # [id number]
[2017-01-27] MEDS: PANTOPRAZOLE 40 MG/10 ML (PROTONIX) VIAL IV SCH (08:58)
[2017-01-27] MEDS: POTASSIUM CL 10MEQ/50ML IVPB 50 ML IV SCH ×5 (08:58→13:07)
[2017-01-27] MEDS: LINEZOLID IVPB 300 ML IV SCH ×2 (08:58→20:59)
[2017-01-27] MEDS: BRIMONIDINE 0.2% (ALPHAGAN) OPHTH SOLN 5 ML BTL OS SCH ×3 (08:59→20:57)
[2017-01-27] MEDS: TIMOLOL MALEATE 0.5% 5 ML (TIMOPTIC) BTL OS SCH ×2 (08:59→20:58)
[2017-01-27] MEDS ORDERED: LEVOFLOXACIN 750 MG/150 ML IV 150 ML IV SCH (09:00)
--- NOTE | 2017-01-27 09:29 | Progress Note (SOAP) ---
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 SHE WAS RECENTLY HOSPITALIZED FOR A UTI, HAS HAD RECURRENT INFECTIONS WHILE AT THE SNF. WAS STARTED ON ANTIBIOTICS, BUT FAILED OUTPATIENT TREATMENT, STARTED TO HAVE CONFUSION, WEAKNESS AND WAS OBTUNDED BY THE TIME SHE GOT TO THE HOSPITAL. THE PATIENT'S HAD CONVERSATION WITH DR. KAUR AND DR. CAMARILLO ABOUT COMFORT CARE. Review of Systems PT UNABLE TO RESPOND TO ROS, STAFF DENIES FEVER, EMESIS REPORTS SOME VERBAL RESPONSE TO HIS CONVERSATION - SPECIFICALLY SHE MURMURED WHAT SOUNDED LIKE I LOVE YOU TO HIM IN RESPONSE TO HIM TELLING HER THAT HE LOVED HER. Objective Exam Vital Signs Date Time Temp Pulse Resp B/P (MAP) Pulse Ox O2 Delivery O2 Flow Rate FiO2 01/27/17 08:00 97 Vapotherm 40.00 75 01/27/17 08:00 98.2 01/27/17 07:00 104 01/27/17 06:40 98 Vapotherm 40.00 85 01/27/17 06:04 106 17 130/84 97 Vapotherm 100.00 40.00 01/27/17 05:05 103 13 103/70 99 Vapotherm 100.00 40.00 01/27/17 04:03 111 16 126/77 98 Vapotherm 100.00 40.00 01/27/17 04:00 96 Vapotherm 40.00 90 01/27/17 03:21 114 15 114/74 98 Vapotherm 100.00 40.00 01/27/17 02:17 118 21 126/76 95 Vapotherm 100.00 40.00 01/27/17 02:12 96 Vapotherm 40.00 100 01/27/17 01:15 108 15 87/42 99 Vapotherm 100.00 40.00 01/27/17 01:00 108 01/27/17 00:19 108 17 72/42 99 Vapotherm 100.00 40.00 01/27/17 00:00 96 Vapotherm 40.00 100 01/26/17 23:12 106 18 106/93 96 Vapotherm 100.00 40.00 01/26/17 22:11 99 Vapotherm 40.00 100 01/26/17 22:10 111 19 80/48 96 Vapotherm 100.00 40.00 01/26/17 22:06 97.9 01/26/17 21:10 112 15 98/55 90 Vapotherm 100.00 40.00 01/26/17 20:00 97.9 01/26/17 20:00 96 Vapotherm 40.00 100 01/26/17 20:00 111 12 114/95 97 Vapotherm 100.00 40.00 01/26/17 19:00 15 15 97/83 94 Vapotherm 100.00 40.00 01/26/17 19:00 117 01/26/17 18:55 94 Vapotherm 40.00 100 01/26/17 18:00 111 13 96 Vapotherm 100.00 40.00 01/26/17 17:45 112 8 111/99 96 Vapotherm 100.00 40.00 01/26/17 16:45 112 16 139/107 97 Vapotherm 100.00 40.00 01/26/17 16:00 98 Vapotherm 40.00 100 01/26/17 15:30 97.7 111 16 132/95 97 Vapotherm 100.00 40.00 01/26/17 14:45 113 12 204/174 Vapotherm 100.00 40.00 01/26/17 14:19 114 01/26/17 13:52 99 Vapotherm 40.00 100 01/26/17 13:50 110/80 01/26/17 12:22 25 80/58 96 Vapotherm 100.00 40.00 01/26/17 12:03 95 Vapotherm 40.00 100 01/26/17 11:25 96.2 122 20 94 OxyMask 15.00 01/26/17 11:25 OxyMask 15.00 01/26/17 09:57 85 OxyMask 15.00 01/26/17 09:36 98.2 139 16 99/84 84 Non Rebreather I & O 01/27/17 07:00 Intake Total 6050 ml Output Total 1100 ml Balance 4950 ml Capillary Refill : Greater Than 3 Seconds General Appearance: WD/WN, Chronically ill, Moderate Distress Respiratory: Chest Non Tender, Crackles, Decreased Breath Sounds Cardiovascular: Regular Rate, Rhythm Gastrointestinal: normal bowel sounds, soft, other (TYMPANIC TO PERCUSSION) Extremity: Pedal Edema, Other (UPPER EXTREMITY EDEMA, ) Neurologic/Psychiatric: Other (NO ORIENTATION, PT UNRESPONSIVE TO VOICE) Skin: Warm/Dry, Ecchymosis Results Lab Laboratory Tests 01/26/17 09:46: White Blood Count 5.2, Red Blood Count 4.83, Hemoglobin 11.9, Hematocrit 39, Mean Corpuscular Volume 81, Mean Corpuscular Hemoglobin 25, Mean Corpuscular Hemoglobin Concent 30L, Red Cell Distribution Width 20.7H, Platelet Count 377, Mean Platelet Volume 9.9, Neutrophils (%) (Auto) 48, Lymphocytes (%) (Auto) 48H , Monocytes (%) (Auto) 3, Eosinophils (%) (Auto) 1, Basophils (%) (Auto) 0, Neutrophils # (Auto) 2.5, Lymphocytes # (Auto) 2.5, Monocytes # (Auto) 0.1, Eosinophils # (Auto) 0.1, Basophils # (Auto) 0.0, Neutrophils % (Manual) 4, Lymphocytes % (Manual) 56, Monocytes % (Manual) 4, Eosinophils % (Manual) 2, Basophils % (Manual) 2, Metamyelocytes % 1, Myelocytes % 2, Band Neutrophils 29 , Poikilocytosis SLIGHT, Anisocytosis SLIGHT, Elliptocytes SLIGHT, Prothrombin Time 12.9, INR Comment 1.0, Activated Partial Thromboplast Time 29, Urine Color YELLOW, Urine Clarity CLEAR, Urine pH 5, Urine Specific [place] 1.015L, Urine Protein 3+H, Urine Glucose (UA) NEGATIVE, Urine Ketones 1+H, Urine Nitrite NEGATIVE, Urine Bilirubin 1+H, Urine Urobilinogen 1, Urine Leukocyte Esterase 3+ H, Urine RBC (Auto) 5+H, Urine RBC 25-50H, Urine WBC >100H, Urine Squamous Epithelial Cells RARE, Urine Crystals PRESENTH, Urine Calcium Oxalate Crystals RAREH, Urine Bacteria LARGEH, Urine Casts NONE, Urine Mucus SMALLH, Urine Yeast MODERATEH, Urine Culture Indicated YES, Sodium Level 140, Potassium Level 4.1, Chloride Level 100, Carbon Dioxide Level 24, Anion Gap 16H, Blood Urea Nitrogen 21H, Creatinine 0.95, Estimat Glomerular Filtration Rate 58, BUN/Creatinine Ratio 22, Glucose Level 119H, Lactic Acid Level 3.80*H, Calcium Level 10.1, Total Bilirubin 0.5, Aspartate Amino Transf (AST/SGOT) 29, Alanine Aminotransferase (ALT/SGPT) 39, Alkaline Phosphatase 120, Troponin I < 0.30, B- Type Natriuretic Peptide 253.5H, Total Protein 6.5, Albumin 3.1L 01/26/17 11:59: Lactic Acid Level 6.15*H 01/26/17 12:27: Blood Gas Puncture Site L BRACHIAL, Blood Gas Patient Temperature 96.2, Arterial Blood pH 7.43, Arterial Blood Partial Pressure CO2 30L, Arterial Blood Partial Pressure O2 67L, Arterial Blood HCO3 20L, Arterial Blood Total CO2 20.7L , Arterial Blood Oxygen Saturation 93L, Arterial Blood Base Excess -4.1L, Brice Test YES-POS, Blood Gas Ventilator Setting NO, Blood Gas Inspired Oxygen 40L/100 % 01/26/17 19:10: Activated Partial Thromboplast Time 186*H 01/27/17 00:15: Sodium Level 138, Potassium Level 4.7, Chloride Level 107, Carbon Dioxide Level 16L, Anion Gap 15H, Blood Urea Nitrogen 29H, Creatinine 1.31H, Estimat Glomerular Filtration Rate 40, BUN/Creatinine Ratio 22, Glucose Level 153H, Lactic Acid Level 5.05*H, Calcium Level 8.1L, Magnesium Level 1.3L, B-Type Natriuretic Peptide 1270.3H, Albumin 2.2L 01/27/17 05:10: Sodium Level 141, Potassium Level 3.6, Chloride Level 102, Carbon Dioxide Level 21, Anion Gap 18H, Blood Urea Nitrogen 28H, Creatinine 1.22, Estimat Glomerular Filtration Rate 44, BUN/Creatinine Ratio 23, Glucose Level 214H, Lactic Acid Level 4.04*H, Calcium Level 8.2L, Magnesium Level 3.1H, Albumin 2.7L, White Blood Count 8.9, Red Blood Count 3.90L, Hemoglobin 9.4#L, Hematocrit 32L, Mean Corpuscular Volume 81, Mean Corpuscular Hemoglobin 24L, Mean Corpuscular Hemoglobin Concent 30L, Red Cell Distribution Width 19.7H, Platelet Count 267, Mean Platelet Volume 9.5, Neutrophils (%) (Auto) 86H, Lymphocytes (%) (Auto) 11L , Monocytes (%) (Auto) 2, Eosinophils (%) (Auto) 0, Basophils (%) (Auto) 0, Neutrophils # (Auto) 7.7, Lymphocytes # (Auto) 1.0, Monocytes # (Auto) 0.2, Eosinophils # (Auto) 0.0, Basophils # (Auto) 0.0, Neutrophils % (Manual) 17, Lymphocytes % (Manual) 14, Monocytes % (Manual) 4, Eosinophils % (Manual) 0, Basophils % (Manual) 0, Metamyelocytes % 10, Band Neutrophils 52, Reactive Lymphocytes 3, Toxic Granulation 1+, Polychromasia SLIGHT, Hypochromasia SLIGHT , Poikilocytosis MODERATE, Anisocytosis SLIGHT, Tear Drop Cells SLIGHT, Elliptocytes MODERATE, Rouleau SLIGHT, Activated Partial Thromboplast Time 155*H , Total Bilirubin 0.6, Aspartate Amino Transf (AST/SGOT) 69H, Alanine Aminotransferase (ALT/SGPT) 57H, Alkaline Phosphatase 75, Total Protein 5.2L 01/27/17 09:05: Microbiology 01/26/17 Urine Culture - Preliminary, Resulted Pseudomonas Aeruginosa Probable Enterococcus Species Assessment/Plan Assessment/Plan Assess & Plan/Chief Complaint SEPTIC SHOCK- WITH LACTIC ACIDOSIS HYPOTENSION URINARY TRACT INFECTION RESPIRATORY FAILURE ANEMIA ADRENAL INSUFFICIENCY ELEVATED LIVER ENZYMES DUE TO SHOCK 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 SUPPORTIVE CARE FOR THE SHOCK. HYPOTENSION - SUPPORTIVE CARE URINARY TRACT INFECTION - PROBABLE ENTEROCOCCUS AND PSEUDOMONAS AERUGINOSA - CONTINUE CURRENT ANTIBIOTICS RESPIRATORY FAILURE - PT ON VAOPTHERM AT THIS TIME - MONITOR CHEST XRAY, OUTPUT OF FLUIDS, CONTINUE WITH STEROIDS AND BREATHING TREATMENTS. ANEMIA - HGB DROP FROM 11.9 TO 9.4 OVER THE PAST 24 HOURS, MONITOR CBC TOMORROW , TRANSFUSE IF NEEDED FOR SUPPORTIVE CARE. ADRENAL INSUFFICIENCY ON STEROIDS - CONTINUE STEROIDS. ELEVATED LIVER ENZYMES DUE TO SHOCK - CHECK LFT'S TOMORROW, CONTINUE TO SUPPORT BLOOD PRESSURE. 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 CHRONIC PAIN SYNDROME - CHRONIC PAIN MEDICATION USE - PRN PAIN MEDICATION IN HOSPITAL. PT'S PLANS ON TAKING HER HOME. HER SON - GIOVANNA IS ON HIS WAY HOME FROM VACATION (WAS ABLE TO FIND A FLIGHT HOME TODAY) - AND SHOULD GET IN LATE TONIGHT. THEY ARE GOING TO WORK WITH [facility] TO GET PT TO HOME WITH CARE FROM [facility] HOSPICE. Clinical Quality Measures DVT/VTE Risk/Contraindication: Risk Factor Score Per Nursin RFS Level Per Nursing on Admit: 4+=Very High CHARANJIT DICKINSON MD Jan 27, 2017 09:29
[2017-01-27] MEDS: FLUDROCORTISONE 0.1 MG (FLORINEF) TAB PO SCH (09:33)
[2017-01-27] MEDS: fentaNYL INJECTION 100 MCG/2 ML AMP IV PRN ×3 (09:33→17:45)
--- NOTE | 2017-01-27 10:44 | Diagnostic Imaging Report ---
INDICATION: Elevated D-dimer. Deep veins of the lower extremities were evaluated with grayscale, spectral waveform, and color Doppler flow analysis. The veins were compressible and have normal spontaneous and augmented flow. IMPRESSION: Negative venous Doppler of the lower extremities. Dictated by: Dictated on workstation # [id number]
[2017-01-27] MEDS: HEParin DRIP 25000 UNIT/500ML 500 ML IV SCH (17:54)
[2017-01-27] MEDS ORDERED: BISACODYL 10 MG SUPP (DULCOLAX) PR NR (18:00)
[2017-01-28] VITALS (24 sets, daily range): BP systolic 96–161; BP diastolic 64–107
[2017-01-28] MEDS: RT-ALBUTEROL/IPRATROPIUM 3 ML (DUONEB) VIAL IH SCH ×6 (02:10→22:20)
[2017-01-28 04:19] LABS: BASOPHILS % (AUTO) 0 % (0-10); EOSINOPHILS % (AUTO) 0 % (0-10); LYMPHOCYTES % (AUTO) 8 % (12-44); MEAN CORPUSCULAR HEMOGLOBIN 24 PG (25-34); MEAN CORPUSCULAR HGB CONC 31 G/DL (32-36); MEAN CORPUSCULAR VOLUME 80 FL (80-99); MEAN PLATELET VOLUME 10.2 FL (7.4-10.4); MONOCYTES # (AUTO) 0.3 X 10^3 (0.0-1.0); MONOCYTES % (AUTO) 2 % (0-12); NEUTROPHILS # (AUTO) 10.3 X 10^3 (1.8-7.8); NEUTROPHILS % (AUTO) 89 % (42-75); PLATELET COUNT 221 10^3/uL (130-400); RED BLOOD COUNT 3.56 10^6/uL (4.35-5.85); RED CELL DISTRIBUTION WIDTH 19.6 % (10.0-14.5); WHITE BLOOD COUNT 11.6 10^3/uL (4.3-11.0)
[2017-01-28 04:34] LABS: ANION GAP 15 MMOL/L (5-14); BLOOD UREA NITROGEN 25 MG/DL (7-18); BUN/CREATININE RATIO 38; CALCIUM 7.6 MG/DL (8.5-10.1); CARBON DIOXIDE 20 MMOL/L (21-32); CHLORIDE 102 MMOL/L (98-107); CREATININE SERUM 0.65 MG/DL (0.60-1.30); GFR ESTIMATED > 60; GLUCOSE 109 MG/DL (70-105); MAGNESIUM 2.2 MG/DL (1.8-2.4); PHOSPHORUS 3.2 MG/DL (2.3-4.7); SODIUM 137 MMOL/L (135-145)
[2017-01-28 04:52] LABS: BAND NEUTROPHILS 42 %; BASOPHILS % (MANUAL) 0 %; EOSINOPHILS % (MANUAL) 0 %; LYMPHOCYTES % (MANUAL) 9 %; NEUTROPHILS % (MANUAL) 46 %
[2017-01-28 04:53] LABS: HYPOCHROMASIA SLIGHT; POIKILOCYTOSIS MODERATE; TEAR DROP CELLS SLIGHT
[2017-01-28 04:54] LABS: ANISOCYTOSIS SLIGHT
[2017-01-28] MEDS: fentaNYL INJECTION 100 MCG/2 ML AMP IV PRN ×6 (05:09→20:22)
[2017-01-28] MEDS: POTASSIUM CL 10MEQ/50ML IVPB 50 ML IV SCH ×6 (05:47→09:54)
[2017-01-28] MEDS: KCL 20 MEQ TAB (K-DUR) PO SCH (06:00)
[2017-01-28] MEDS: MAGNESIUM 1 GM/100 ML IVPB 100 ML IV SCH (06:00)
[2017-01-28] MEDS: MEROPENEM 500 MG/NS 100 ML IVPB IV SCH ×8 (06:20→18:33)
[2017-01-28] MEDS: HYDROCORTISONE 100 MG/2 ML (Solu-CORTEF) VIAL IV SCH ×3 (06:20→21:28)
[2017-01-28] MEDS: NOREPINEPHRINE 4 MG in D5W 250 ML (IVPB) 250 ML IV SCH ×2 (07:39→21:45)
[2017-01-28] MEDS: FLUDROCORTISONE 0.1 MG (FLORINEF) TAB PO SCH (07:40)
[2017-01-28] MEDS: PANTOPRAZOLE 40 MG/10 ML (PROTONIX) VIAL IV SCH (08:47)
[2017-01-28] MEDS: LINEZOLID IVPB 300 ML IV SCH ×2 (08:47→20:23)
[2017-01-28] MEDS: TIMOLOL MALEATE 0.5% 5 ML (TIMOPTIC) BTL OS SCH ×2 (08:56→13:12)
[2017-01-28] MEDS: BRIMONIDINE 0.2% (ALPHAGAN) OPHTH SOLN 5 ML BTL OS SCH ×3 (08:56→20:23)
[2017-01-28] MEDS ORDERED: POTASSIUM CL 10MEQ/50ML IVPB 50 ML IV NR (09:01)
[2017-01-28] MEDS: NS IV 1000 ML 1,000 ML IV SCH ×2 (09:13→19:36)
--- NOTE | 2017-01-28 09:42 | Progress Note (SOAP) ---
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 SHE HAS BEEN TAKEN OFF OF PRESSORS, BEEN ABLE TO MAINTAIN HER BLOOD PRESSURE ON HER OWN. PER NURSING STAFF, FAMILY HAD CONVERSATION WITH DR. CAMARILLO THIS MORNING. HE RECOMMENDED IV ANTIBIOTICS UNTIL SUNDAY OR SUNDAY - THEN DISCHARGE TO HOME ON HOSPICE. Review of Systems General: Fatigue Gastrointestinal: No: Nausea Neurological: Weakness PT UNABLE TO RESPOND TO ROS, STAFF DENIES FEVER, EMESIS REPORTS SOME VERBAL RESPONSE TO HIS CONVERSATION - SPECIFICALLY SHE MURMURED WHAT SOUNDED LIKE I LOVE YOU TO HIM IN RESPONSE TO HIM TELLING HER THAT HE LOVED HER. Objective Exam Vital Signs Date Time Temp Pulse Resp B/P (MAP) Pulse Ox O2 Delivery O2 Flow Rate FiO2 01/28/17 08:00 99 23 112/87 100 Vapotherm 60.00 20.00 01/28/17 07:34 98.2 01/28/17 07:00 96 01/28/17 07:00 96 21 115/84 100 Vapotherm 60.00 20.00 01/28/17 06:22 95 18 97 Vapotherm 60.00 20.00 01/28/17 06:22 100 Vapotherm 25.00 70 01/28/17 06:00 90 22 108/72 94 Vapotherm 70.00 25.00 01/28/17 05:00 93 14 96/76 100 Vapotherm 70.00 25.00 01/28/17 04:00 99 Vapotherm 25.00 70 01/28/17 04:00 97.4 92 12 108/66 100 Vapotherm 70.00 25.00 01/28/17 03:00 92 24 103/70 100 Vapotherm 70.00 25.00 01/28/17 02:14 89 12 100 Vapotherm 70.00 25.00 01/28/17 02:11 100 Vapotherm 30.00 70 01/28/17 02:00 90 12 116/77 100 Vapotherm 70.00 30.00 01/28/17 01:00 91 13 119/73 100 Vapotherm 70.00 30.00 01/28/17 01:00 91 01/28/17 00:22 99 Vapotherm 30.00 70 01/28/17 00:00 97.1 90 12 107/65 99 Vapotherm 70.00 30.00 01/27/17 23:00 98 12 91/56 96 Vapotherm 70.00 30.00 01/27/17 22:01 99 Vapotherm 35.00 70 01/27/17 22:00 101 16 130/81 99 Vapotherm 70.00 30.00 01/27/17 21:00 101 13 124/84 100 Vapotherm 70.00 35.00 01/27/17 20:00 100 Vapotherm 35.00 70 01/27/17 20:00 97.4 99 11 124/76 100 Vapotherm 70.00 35.00 01/27/17 19:00 99 01/27/17 19:00 99 11 109/64 100 Vapotherm 70.00 35.00 01/27/17 18:38 97 Vapotherm 35.00 70 01/27/17 18:00 101 13 96/59 97 Vapotherm 70.00 40.00 01/27/17 17:00 103 12 134/91 97 Vapotherm 70.00 40.00 01/27/17 16:00 98.6 01/27/17 16:00 103 13 137/89 96 Vapotherm 70.00 40.00 01/27/17 15:59 97 Vapotherm 40.00 75 01/27/17 15:00 102 13 114/82 95 Vapotherm 70.00 40.00 01/27/17 14:13 98 Vapotherm 35.00 70 01/27/17 14:00 100 14 106/69 99 Vapotherm 75.00 40.00 01/27/17 13:00 100 01/27/17 13:00 98 12 103/70 99 Vapotherm 75.00 40.00 01/27/17 12:00 92 12 103/74 97 Vapotherm 75.00 40.00 01/27/17 11:35 97.4 96 12 130/84 99 Vapotherm 75.00 40.00 01/27/17 11:21 97 Vapotherm 40.00 75 01/27/17 11:00 93 14 101/61 98 Vapotherm 75.00 40.00 01/27/17 10:00 102 13 112/68 99 Vapotherm 75.00 40.00 I & O 01/28/17 07:00 Intake Total 4026 ml Output Total 2250 ml Balance 1776 ml Capillary Refill : Greater Than 3 Seconds General Appearance: No Apparent Distress, WD/WN HEENT: PERRL/EOMI, Pharynx Normal Neck: Full Range of Motion, Supple Respiratory: Chest Non Tender, Crackles, Decreased Breath Sounds Cardiovascular: Regular Rate, Rhythm Gastrointestinal: normal bowel sounds, non tender, soft, no organomegaly, no pulsatile mass Extremity: Pedal Edema Neurologic/Psychiatric: Other (AROUSES TO VOICE) Results Lab Laboratory Tests 01/27/17 12:30: Activated Partial Thromboplast Time > 200*H 01/27/17 20:37: Activated Partial Thromboplast Time 141*H 01/28/17 03:34: Activated Partial Thromboplast Time 103H, White Blood Count 11.6H, Red Blood Count 3.56L, Hemoglobin 8.7L, Hematocrit 29L, Mean Corpuscular Volume 80, Mean Corpuscular Hemoglobin 24L, Mean Corpuscular Hemoglobin Concent 31L, Red Cell Distribution Width 19.6H, Platelet Count 221, Mean Platelet Volume 10.2, Neutrophils (%) (Auto) 89H, Lymphocytes (%) (Auto) 8L, Monocytes (%) (Auto) 2, Eosinophils (%) (Auto) 0, Basophils (%) (Auto) 0, Neutrophils # (Auto) 10.3H, Lymphocytes # (Auto) 1.0, Monocytes # (Auto) 0.3, Eosinophils # (Auto) 0.0, Basophils # (Auto) 0.0, Neutrophils % (Manual) 46, Lymphocytes % (Manual) 9, Monocytes % (Manual) 3, Eosinophils % (Manual) 0, Basophils % (Manual) 0, Band Neutrophils 42, Toxic Granulation 2+, Hypochromasia SLIGHT, Poikilocytosis MODERATE, Anisocytosis SLIGHT, Macrocytosis SLIGHT, Tear Drop Cells SLIGHT, Elliptocytes SLIGHT, Sodium Level 137, Potassium Level 3.0L, Chloride Level 102 , Carbon Dioxide Level 20L, Anion Gap 15H, Blood Urea Nitrogen 25H, Creatinine 0.65, Estimat Glomerular Filtration Rate > 60, BUN/Creatinine Ratio 38, Glucose Level 109H, Calcium Level 7.6L, Phosphorus Level 3.2, Magnesium Level 2.2 01/28/17 09:30: Microbiology 01/26/17 Blood Culture - Preliminary, Resulted No growth 01/26/17 Urine Culture - Final, Complete Pseudomonas Aeruginosa Enterococcus Faecalis Presumptive Giin Albicans Assessment/Plan Assessment/Plan Assess & Plan/Chief Complaint SEPTIC SHOCK- WITH LACTIC ACIDOSIS HYPOTENSION URINARY TRACT INFECTION RESPIRATORY FAILURE ANEMIA ADRENAL INSUFFICIENCY ELEVATED LIVER ENZYMES DUE TO SHOCK 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 SUPPORTIVE CARE FOR THE SHOCK. HYPOTENSION - SUPPORTIVE CARE URINARY TRACT INFECTION - PROBABLE ENTEROCOCCUS AND PSEUDOMONAS AERUGINOSA - CONTINUE CURRENT ANTIBIOTICS OF MEROPENEM AND LINEZOLID, START ON DIFLUCAN FOR PRESUMPTIVE GINI ALBICANS RESPIRATORY FAILURE - PT ON VAOPTHERM AT THIS TIME - MONITOR CHEST XRAY, OUTPUT OF FLUIDS, CONTINUE WITH STEROIDS AND BREATHING TREATMENTS. ANEMIA - HGB DROP FROM 11.9 TO 9.4 AND DOWN TO 8.7 TODAY, MONITOR CBC TOMORROW , TRANSFUSE IF NEEDED FOR SUPPORTIVE CARE. ADRENAL INSUFFICIENCY ON STEROIDS - CONTINUE STEROIDS. ELEVATED LIVER ENZYMES DUE TO SHOCK - CHECK LFT'S TOMORROW, CONTINUE TO SUPPORT BLOOD PRESSURE. 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 CHRONIC PAIN SYNDROME - CHRONIC PAIN MEDICATION USE - PRN PAIN MEDICATION IN HOSPITAL. PT'S PLANS ON TAKING HER HOME. THEY ARE GOING TO WORK WITH [facility] TO GET PT TO HOME WITH CARE FROM SPOUSE AND HOSPICE. PER NURSING STAFF, FAMILY HAD CONVERSATION WITH DR. CAMARILLO THIS MORNING. HE RECOMMENDED IV ANTIBIOTICS UNTIL SUNDAY - THEN DISCHARGE TO HOME ON HOSPICE. Clinical Quality Measures DVT/VTE Risk/Contraindication: Risk Factor Score Per Nursin RFS Level Per Nursing on Admit: 4+=Very High CHARANJIT DICKINSON MD Jan 28, 2017 09:41
[2017-01-28] MEDS ORDERED: FLUCONAZOLE 100 MG/50 ML 50 ML IV NR (09:53)
--- NOTE | 2017-01-28 10:11 | Diagnostic Imaging Report ---
INDICATION: Shortness of breath. EXAM: Portable chest at 5:22 AM FINDINGS: A right IJ Port-A-Cath tip projects over the SVC. There are bilateral perihilar alveolar infiltrates. These appear stable from the previous day. There is no appreciable effusion or pneumothorax. IMPRESSION: Stable chest with patchy bilateral perihilar alveolar infiltrates. Dictated by: Dictated on workstation # [id number]
[2017-01-28] MEDS ORDERED: HYDROmorphone (DILAUDID) 2 MG/ML VIAL ONE (22:04)
[2017-01-28] MEDS ORDERED: SODIUM CHLORIDE IV SCH (22:30)
[2017-01-28] MEDS ORDERED: POTASSIUM CHLORIDE IV SCH (22:30)
[2017-01-28] MEDS ORDERED: HYDROmorphone (DILAUDID) 2 MG/ML VIAL IV ONE (22:30)
[2017-01-28] MEDS: POTASSIUM CL 10 MEQ/50 ML IVPB (PRE-MIX) IV SCH ×2 (22:49→23:26)
[2017-01-29] VITALS (25 sets, daily range): BP systolic 115–180; BP diastolic 74–130
[2017-01-29] MEDS ORDERED: SODIUM CHLORIDE IV ONE (00:30)
[2017-01-29] MEDS ORDERED: POTASSIUM CHLORIDE IV ONE (00:30)
[2017-01-29] MEDS: POTASSIUM CL 10 MEQ/50 ML IVPB (PRE-MIX) IV SCH ×4 (00:35→02:13)
[2017-01-29] MEDS: RT-ALBUTEROL/IPRATROPIUM 3 ML (DUONEB) VIAL IH SCH ×6 (01:02→23:13)
[2017-01-29] MEDS: fentaNYL INJECTION 100 MCG/2 ML AMP IV PRN ×2 (02:11→05:03)
[2017-01-29 04:29] LABS: BASOPHILS % (AUTO) 0 % (0-10); EOSINOPHILS % (AUTO) 0 % (0-10); LYMPHOCYTES % (AUTO) 8 % (12-44); MEAN CORPUSCULAR HEMOGLOBIN 24 PG (25-34); MEAN CORPUSCULAR HGB CONC 31 G/DL (32-36); MEAN CORPUSCULAR VOLUME 79 FL (80-99); MONOCYTES # (AUTO) 0.3 X 10^3 (0.0-1.0); MONOCYTES % (AUTO) 3 % (0-12); NEUTROPHILS # (AUTO) 10.5 X 10^3 (1.8-7.8); NEUTROPHILS % (AUTO) 89 % (42-75); PLATELET COUNT 205 10^3/uL (130-400); RED BLOOD COUNT 3.42 10^6/uL (4.35-5.85); RED CELL DISTRIBUTION WIDTH 19.7 % (10.0-14.5); WHITE BLOOD COUNT 11.8 10^3/uL (4.3-11.0)
[2017-01-29 04:38] LABS: PROTHROMBIN TIME PATIENT 12.8 SEC (12.2-14.7)
[2017-01-29] MEDS: HEParin 1000 UNIT/ML (10ML VIAL) FOR BOLUS IV SCH (04:59)
[2017-01-29 05:05] LABS: ANISOCYTOSIS SLIGHT; BAND NEUTROPHILS 4 %; BASOPHILS % (MANUAL) 0 %; EOSINOPHILS % (MANUAL) 0 %; HYPOCHROMASIA SLIGHT; LYMPHOCYTES % (MANUAL) 10 %; NEUTROPHILS % (MANUAL) 84 %; POIKILOCYTOSIS MODERATE; TEAR DROP CELLS SLIGHT
[2017-01-29] MEDS ORDERED: POTASSIUM CHLORIDE INJ 20 MEQ in NS IV 1000 ML 1,000 ML IV SCH (05:17)
[2017-01-29 05:25] LABS: ANION GAP 10 MMOL/L (5-14); BLOOD UREA NITROGEN 16 MG/DL (7-18); BUN/CREATININE RATIO 36; CALCIUM 7.4 MG/DL (8.5-10.1); CARBON DIOXIDE 22 MMOL/L (21-32); CHLORIDE 105 MMOL/L (98-107); CREATININE SERUM 0.44 MG/DL (0.60-1.30); GFR ESTIMATED > 60; GLUCOSE 84 MG/DL (70-105); MAGNESIUM 1.8 MG/DL (1.8-2.4); PHOSPHORUS 1.4 MG/DL (2.3-4.7); POTASSIUM 2.8 MMOL/L (3.6-5.0); SODIUM 137 MMOL/L (135-145)
[2017-01-29] MEDS: MEROPENEM 500 MG/NS 100 ML IVPB IV SCH ×8 (05:30→18:18)
[2017-01-29] MEDS: MAGNESIUM 1 GM/100 ML IVPB 100 ML IV SCH ×3 (05:34→07:52)
[2017-01-29] MEDS: KCL 20 MEQ TAB (K-DUR) PO SCH (05:34)
[2017-01-29] MEDS: POTASSIUM CL 10MEQ/50ML IVPB 50 ML IV SCH ×7 (05:51→15:21)
[2017-01-29] MEDS ORDERED: NS W/KCL 20 MEQ/L 1,000 ML IV ONE (05:54)
[2017-01-29] MEDS: morphine INJ 4 MG/ML 1 ML (VIAL/SYRINGE) IVP PRN ×4 (06:06→18:18)
[2017-01-29] MEDS: HYDROCORTISONE 100 MG/2 ML (Solu-CORTEF) VIAL IV SCH ×3 (06:06→22:15)
--- NOTE | 2017-01-29 06:29 | Pulmonary Consultation ---
History of Present Illness History of Present Illness Date of Consultation late entry for Sunday01/26/17 Today is 01/29/17 1700 Date of Admission History of Present Illness 66yo with hx of frequent hospitalization and hx of CVID, wheelchairbound, hx of anoxic encephalopathy from choking on hot dog in 2009 presented to ED secondary to progressive lethargy and SOB. SHe has been at [facility] undergoing rehab from recent hospitalization. SHe was found to be hypotensive in ED and was given aggressive IVF and admitted to 4th floor. Family is at bedside currently. PT has a chronic wilson and recently had MRSA of urine. CXR shows pneumonia. Pt has a hx of adrenal insufficiency secondary to chronic steroid use. She is currently requiring 100% oxygen secondary to hypoxia. Pt is a DNR. unable to obtain ROS I am consulted for pulmonary /CC management. Allergies and Home Medications Allergies Coded Allergies: Penicillins (Unverified Allergy, Mild, PT ABLE TO TOLERATE ROCEPHIN, 06/01) oxycodone (Unverified Allergy, Mild, 06/19/06) adhesive (Unverified Allergy, Unknown, 01/06/14) codeine (Verified Allergy, Unknown, 04/19/15) hydrocodone (Verified Allergy, Unknown, 05/31/12) lanolin (Verified Allergy, Unknown, 05/31/12) sulfamethoxazole (Verified Allergy, Unknown, 05/31/12) trimethoprim (Verified Allergy, Unknown, 05/31/12) enoxaparin (Unverified Adverse Reaction, Mild, CHANGES IN MENTATION, ) latex (Unverified Adverse Reaction, Mild, BLADDER INFECTION W/ LATEX CATHETER, 09/23/10) Uncoded Allergies: TEGADERM (Allergy, Mild, RASH, 09/23/10) HEPARIN (Adverse Reaction, Mild, CHANGES IN MENTATION, 09/23/10) Home Medications Alprazolam 0.25 Mg Tablet, 0.25 MG PO TID PRN for ANXIETY, (Reported) Ascorbic Acid 250 Mg Tab, 500 MG PO DAILY, (Reported) Brimonidine Tartrate/Timolol 5 Ml Drops, 1 DROP OS BID, (Reported) Calcium Carbonate/Vitamin D3 1 Each Tablet, 1 TAB PO DAILY, (Reported) Carbamazepine 100 Mg Tab, 100 MG PO 1200,1700, (Reported) Cranberry Conc/Ascorbic Acid 1 Each Capsule, 1 CAP PO DAILY, (Reported) Dexamethasone Sod Phosphate 4 Mg/1 Ml Vial, 4 MG IM MONTHLY, (Reported) Diltiazem HCl 90 Mg Tablet, 90 MG PO TID, (Reported) Docusate Sodium 100 Mg Capsule, 100 MG PO DAILY, (Reported) Duloxetine HCl 30 Mg Capsule.dr, 30 MG PO BID, (Reported) Fluconazole 150 Mg Tablet, 150 MG PO HS, (Reported) Fludrocortisone Acetate 0.1 Mg Tab, 0.2 MG PO DAILY, (Reported) TAKES 2 (0.1MG) TABLETS Fluticasone Propionate 16 Gm Naspr, 2 SPRAY NS DAILY, (Reported) Guaifenesin/Dextromethorphan 1 Each Tab, 1 TAB PO 0500,1600, (Reported) Hydrocortisone 20 Mg Tablet, 20 MG PO 0800, (Reported) Hydrocortisone 20 Mg Tablet, 10 MG PO 1600, (Reported) TAKES 1/2 (20MG) TABLET Immune Globulin,Gamma(IgG) 10 Gm/50 Ml Vial, 10 GM SQ Fr@0800, (Reported) WEEKLY EVERY SUNDAY INFUSE OVER 1 HOUR VIA PUMP Ipratropium/Albuterol Sulfate 3 Ml Ampul.neb, 3 ML IH QID, (Reported) Lactobacillus Acidophilus 1 Each Capsule, 1 CAP PO 1200, (Reported) Loratadine 10 Mg Tablet, 10 MG PO DAILY, (Reported) Methylprednisolone Acetate 80 Mg/1 Ml Vial, 80 MG IM MONTHLY, (Reported) Metoclopramide HCl 5 Mg Tablet, 5 MG PO QID, (Reported) Multivitamins 1 Tab Tablet, 1 TAB PO HS, (Reported) Naproxen Sodium 220 Mg Tablet, 220 MG PO Q8H PRN for PAIN-MILD, (Reported) Nitrofurantoin Monohyd/M-Cryst 100 Mg Capsule, 100 MG PO Q12H, (Reported) Omeprazole 40 Mg Capsule.dr, 40 MG PO DAILY, (Reported) Ondansetron HCl 4 Mg Tablet, 4 MG PO Q4H PRN for NAUSEA/VOMITING-1ST LINE, ( Reported) Oxybutynin Chloride 5 Mg Tablet, 5 MG PO Q12H, (Reported) Oxycodone HCl/Acetaminophen 1 Each Tablet, 1 TAB PO Q6H PRN for PAIN-MODERATE, ( Reported) Polyethylene Glycol 17 Gm Pack, 17 GM PO DAILY, (Reported) Potassium Chloride 10 Meq Capsule.er, 10 MEQ PO QID, (Reported) Past Epgsxod-Ofxrys-Bhwgly Hx Patient Social History Alcohol Use: Denies Use Recreational Drug Use: No Smoking Status: Unknown if Ever Smoked 2nd Hand Smoke Exposure: No Recent Foreign Travel: No Contact w/Someone Who Travel: No Recent Infectious Disease Expo: No Recent Hopitalizations: Yes Physical Abuse Screen: No Sexual Abuse: No Immunizations Up To Date Tetanus Booster (TDap): Unknown PED Vaccines UTD: No Date of Pneumonia Vaccine: Dec 07, 2009 Date of Influenza Vaccine: Mar 09, 2016 Seasonal Allergies Seasonal Allergies: No Surgeries HX Surgeries: Yes (BRAIN, PEG TUBE, suprapubic catheter, BROKEN LEG PLATES/ SCREWS) Surgeries: Orthopedic, Tracheostomy, Urinary Diversion Respiratory Hx Respiratory Disorders: Yes (HAS CPAP-GETTING USED TO WEARING IT, CHRONIC RESPIRATORY INSUFFICIENCY) Respiratory Disorders: Pneumonia, Chronic Bronchitis, Sleep Apnea Cardiovascular Hx Cardiac Disorders: Yes Cardiac Disorders: Hypertension Neurological Hx Neurological Disorders: Yes (ANOXIC BRAIN INJURY, TRIGEMINAL NERVE PAIN) Neurological Disorders: Stroke Reproductive System Hx Reproductive Disorders: No Sexually Transmitted Disease: No HIV/AIDS: No Female Reproductive Disorders: Denies WELD FITTER History: Menopausal Genitourinary Hx Genitourinary Disorders: Yes (SUPRAPUBIC CATHETER) Genitourinary Disorders: Bladder Infection, Neurogenic Bladder, UTI-Chronic Gastrointestinal Hx Gastrointestinal Disorders: Yes (Dysphagia) Gastrointestinal Disorders: Gastroesophageal Reflux, Chronic Constipation Musculoskeletal Hx Musculoskeletal Disorders: Yes (L LEG FX, TOTAL CARE AFTER ANOXIC SPELL) Musculoskeletal Disorders: Osteoporosis, Fractures Endocrine Hx Endocrine Disorders: No Endocrine Disorders: Adrenal Disease HEENT HX ENT Disorders: Yes (TRIGEMINAL NERVE PROBLEMS/ SWALLOWING PROBLEMS AT TIMES) Loss of Vision: Left Hearing Impairment: Denies Cancer Hx Cancer: No Psychosocial Hx Psychiatric Problems: Yes (XANAX-NOT VERY OFTEN) Behavioral Health Disorders: Anxiety, Depression Integumentary HX Skin/Integumentary Disorder: No Blood Transfusions Hx Blood Disorders: Yes (immunoglobulin deficiency) Adverse Reaction to a Blood Tr: No Reviewed Nursing Assessment Reviewed/Agree w Nursing PMH: Yes Family Medical History Significant Family History: No Pertinent Family Hx Family Medial History: Patient reports no known family medical history. Exam Exam Vital Signs Date Time Temp Pulse Resp B/P (MAP) Pulse Ox O2 Delivery O2 Flow Rate FiO2 01/29/17 06:00 83 10 161/116 97 Vapotherm 35.00 12.00 01/29/17 05:03 98 17 180/123 95 Vapotherm 35.00 12.00 01/29/17 05:00 96 12 172/130 94 Vapotherm 35.00 12.00 01/29/17 04:00 93 Vapotherm 12.00 35 01/29/17 04:00 97.5 87 10 157/98 96 Vapotherm 35.00 12.00 01/29/17 03:40 97 15 94 Vapotherm 35.00 12.00 01/29/17 03:00 103 21 177/119 86 Vapotherm 30.00 12.00 01/29/17 02:00 83 9 115/74 95 Vapotherm 30.00 12.00 01/29/17 01:02 92 Vapotherm 12.00 30 01/29/17 01:00 97 16 173/108 90 Vapotherm 30.00 12.00 01/29/17 01:00 97 01/29/17 00:00 97.7 86 10 119/95 95 Vapotherm 30.00 12.00 01/29/17 00:00 93 Vapotherm 12.00 30 01/28/17 23:00 89 10 126/83 92 Vapotherm 30.00 12.00 01/28/17 22:21 91 Vapotherm 12.00 30 01/28/17 22:00 97 16 161/107 92 Vapotherm 30.00 12.00 01/28/17 21:00 100 17 158/102 93 Vapotherm 30.00 12.00 01/28/17 20:00 93 Vapotherm 12.00 30 01/28/17 20:00 98.1 98 14 147/88 94 Vapotherm 30.00 12.00 01/28/17 19:00 97 14 133/85 92 Vapotherm 30.00 12.00 01/28/17 19:00 97 01/28/17 18:36 90 Vapotherm 12.00 30 01/28/17 18:15 30.00 12.00 01/28/17 18:00 99 17 135/93 92 Vapotherm 40.00 15.00 01/28/17 17:00 96 16 144/96 92 Vapotherm 40.00 15.00 01/28/17 16:20 98.8 01/28/17 16:05 98 Vapotherm 20.00 60 01/28/17 16:00 92 12 131/92 92 Vapotherm 40.00 15.00 01/28/17 15:00 94 16 139/82 92 Vapotherm 40.00 15.00 01/28/17 14:45 Vapotherm 30.00 12.00 01/28/17 14:00 90 15 123/82 91 Vapotherm 40.00 15.00 01/28/17 13:44 94 Vapotherm 15.00 40 01/28/17 13:00 87 01/28/17 13:00 87 12 113/76 93 Vapotherm 40.00 15.00 01/28/17 12:15 Vapotherm 40.00 15.00 01/28/17 12:05 98 Vapotherm 20.00 60 01/28/17 12:00 81 11 106/64 99 Vapotherm 40.00 15.00 01/28/17 11:44 Vapotherm 40.00 15.00 01/28/17 11:36 99 Vapotherm 20.00 50 01/28/17 11:00 85 13 109/77 100 Vapotherm 50.00 20.00 01/28/17 10:00 89 13 111/79 100 Vapotherm 50.00 20.00 01/28/17 09:30 Vapotherm 50.00 20.00 01/28/17 09:00 101 12 107/85 97 Vapotherm 60.00 20.00 01/28/17 08:30 98 Vapotherm 20.00 60 01/28/17 08:00 99 23 112/87 100 Vapotherm 60.00 20.00 01/28/17 07:34 98.2 01/28/17 07:00 96 01/28/17 07:00 96 21 115/84 100 Vapotherm 60.00 20.00 I & O 01/29/17 07:00 Intake Total 2500 ml Output Total 1740 ml Balance 760 ml General Appearance: WD/WN, Severe Distress HEENT: PERRL/EOMI, Pharynx Normal Neck: Full Range of Motion, Supple Respiratory: Chest Non Tender, Crackles, Decreased Breath Sounds Cardiovascular: Tachycardia Capillary Refill: Greater Than 3 Seconds Gastrointestinal: normal bowel sounds, non tender, soft, no organomegaly, no pulsatile mass Extremity: Pedal Edema Neurologic/Psychiatric: Other (AROUSES TO VOICE) Skin: Warm/Dry, Ecchymosis Results Lab Laboratory Tests 01/28/17 03:34 01/28/17 14:10 01/28/17 21:40 01/29/17 04:18 Assessment/Plan Assessment/Plan Severe sepsis with septic shock -We have to be cautious of being too aggressive with IVF secondary to patients respiratory status and being a DNR. -This is a patient that following septic shock protocol with 30cc/kg of IVF will result in respiratory failure and -Solucortef 100mg IV Q 8 -pt has hx of adrenal insuff -zyvox and Merrem Acute respiratory failure -Vapor therm currently with 100% oxygen -I suspect PE however pt is too unstable for CTA -will start hep gtt Hx of CVID -receives IVIG as out patient UTI with recent MRSA -Will start zyvox and Merrem COPD -SVNS, oxygen Hx of anoxic encephalopathy chronic debility wheel chair bound Prognosis is poor. Pt is a DNR however she is not comfort care only. Will transfer to ICU and continue aggressive care. Her son and family is traveling back from [place] they will not be back until Sunday. Pt has been in contact with [facility] hospice however has not been placed on Hospice yet. 120min was spent with patient and family regarding patients care. Clinical Quality Measures DVT/VTE Risk/Contraindication: Risk Factor Score Per Nursin RFS Level Per Nursing on Admit: 4+=Very High MYLA CAMARILLO DO Jan 29, 2017 06:29
--- NOTE | 2017-01-29 06:45 | Pulmonary Progress Note ---
Subjective Date Seen by Provider: Jan 27, 2017 (Late entry for 01/27/17 today is 01/29/17) Time Seen by Provider: 06:44 Subjective/Events-last exam PT appears slightly improved. Exam Exam Vital Signs Date Time Temp Pulse Resp B/P (MAP) Pulse Ox O2 Delivery O2 Flow Rate FiO2 01/29/17 06:00 83 10 161/116 97 Vapotherm 35.00 12.00 01/29/17 05:03 98 17 180/123 95 Vapotherm 35.00 12.00 01/29/17 05:00 96 12 172/130 94 Vapotherm 35.00 12.00 01/29/17 04:00 93 Vapotherm 12.00 35 01/29/17 04:00 97.5 87 10 157/98 96 Vapotherm 35.00 12.00 01/29/17 03:40 97 15 94 Vapotherm 35.00 12.00 01/29/17 03:00 103 21 177/119 86 Vapotherm 30.00 12.00 01/29/17 02:00 83 9 115/74 95 Vapotherm 30.00 12.00 01/29/17 01:02 92 Vapotherm 12.00 30 01/29/17 01:00 97 16 173/108 90 Vapotherm 30.00 12.00 01/29/17 01:00 97 01/29/17 00:00 97.7 86 10 119/95 95 Vapotherm 30.00 12.00 01/29/17 00:00 93 Vapotherm 12.00 30 01/28/17 23:00 89 10 126/83 92 Vapotherm 30.00 12.00 01/28/17 22:21 91 Vapotherm 12.00 30 01/28/17 22:00 97 16 161/107 92 Vapotherm 30.00 12.00 01/28/17 21:00 100 17 158/102 93 Vapotherm 30.00 12.00 01/28/17 20:00 93 Vapotherm 12.00 30 01/28/17 20:00 98.1 98 14 147/88 94 Vapotherm 30.00 12.00 01/28/17 19:00 97 14 133/85 92 Vapotherm 30.00 12.00 01/28/17 19:00 97 01/28/17 18:36 90 Vapotherm 12.00 30 01/28/17 18:15 30.00 12.00 01/28/17 18:00 99 17 135/93 92 Vapotherm 40.00 15.00 01/28/17 17:00 96 16 144/96 92 Vapotherm 40.00 15.00 01/28/17 16:20 98.8 01/28/17 16:05 98 Vapotherm 20.00 60 01/28/17 16:00 92 12 131/92 92 Vapotherm 40.00 15.00 01/28/17 15:00 94 16 139/82 92 Vapotherm 40.00 15.00 01/28/17 14:45 Vapotherm 30.00 12.00 01/28/17 14:00 90 15 123/82 91 Vapotherm 40.00 15.00 01/28/17 13:44 94 Vapotherm 15.00 40 01/28/17 13:00 87 01/28/17 13:00 87 12 113/76 93 Vapotherm 40.00 15.00 01/28/17 12:15 Vapotherm 40.00 15.00 01/28/17 12:05 98 Vapotherm 20.00 60 01/28/17 12:00 81 11 106/64 99 Vapotherm 40.00 15.00 01/28/17 11:44 Vapotherm 40.00 15.00 01/28/17 11:36 99 Vapotherm 20.00 50 01/28/17 11:00 85 13 109/77 100 Vapotherm 50.00 20.00 01/28/17 10:00 89 13 111/79 100 Vapotherm 50.00 20.00 01/28/17 09:30 Vapotherm 50.00 20.00 01/28/17 09:00 101 12 107/85 97 Vapotherm 60.00 20.00 01/28/17 08:30 98 Vapotherm 20.00 60 01/28/17 08:00 99 23 112/87 100 Vapotherm 60.00 20.00 01/28/17 07:34 98.2 01/28/17 07:00 96 01/28/17 07:00 96 21 115/84 100 Vapotherm 60.00 20.00 I & O 01/29/17 07:00 Intake Total 2500 ml Output Total 1740 ml Balance 760 ml General Appearance: WD/WN, Moderate Distress HEENT: PERRL/EOMI, Pharynx Normal Neck: Full Range of Motion, Supple Respiratory: Chest Non Tender, Crackles, Decreased Breath Sounds Cardiovascular: Tachycardia Capillary Refill: Greater Than 3 Seconds Gastrointestinal: normal bowel sounds, non tender, soft, no organomegaly, no pulsatile mass Extremity: Pedal Edema Neurologic/Psychiatric: Other (AROUSES TO VOICE) Skin: Warm/Dry, Ecchymosis Results Lab Laboratory Tests 01/28/17 03:34 01/28/17 14:10 01/28/17 21:40 01/29/17 04:18 Assessment/Plan Assessment/Plan Severe sepsis with septic shock -We have to be cautious of being too aggressive with IVF secondary to patients respiratory status and being a DNR. -This is a patient that following septic shock protocol with 30cc/kg of IVF will result in respiratory failure and -Solucortef 100mg IV Q 8 -pt has hx of adrenal insuff -zyvox and Merrem Metabolic lactic acidosis -IVF and monitor Acute respiratory failure -Vapor therm currently with 100% oxygen -I suspect PE however pt is too unstable for CTA -will start hep gtt Hx of CVID -receives IVIG as out patient UTI with pseudomonus and recent MRSA -Will start zyvox and Merrem COPD -SVNS, oxygen Hx of anoxic encephalopathy chronic debility wheel chair bound 233 Clinical Quality Measures DVT/VTE Risk/Contraindication: Risk Factor Score Per Nursin RFS Level Per Nursing on Admit: 4+=Very High MYLA CAMARILLO DO Jan 29, 2017 06:45
--- NOTE | 2017-01-29 06:50 | Pulmonary Progress Note ---
Subjective Date Seen by Provider: Jan 28, 2017 (late entry for 01/28/17 toay is 01/29/17 ) Time Seen by Provider: 06:48 Subjective/Events-last exam Pt is doing better. Will continue to monitor in ICU. Exam Exam Vital Signs Date Time Temp Pulse Resp B/P (MAP) Pulse Ox O2 Delivery O2 Flow Rate FiO2 01/29/17 06:00 83 10 161/116 97 Vapotherm 35.00 12.00 01/29/17 05:03 98 17 180/123 95 Vapotherm 35.00 12.00 01/29/17 05:00 96 12 172/130 94 Vapotherm 35.00 12.00 01/29/17 04:00 93 Vapotherm 12.00 35 01/29/17 04:00 97.5 87 10 157/98 96 Vapotherm 35.00 12.00 01/29/17 03:40 97 15 94 Vapotherm 35.00 12.00 01/29/17 03:00 103 21 177/119 86 Vapotherm 30.00 12.00 01/29/17 02:00 83 9 115/74 95 Vapotherm 30.00 12.00 01/29/17 01:02 92 Vapotherm 12.00 30 01/29/17 01:00 97 16 173/108 90 Vapotherm 30.00 12.00 01/29/17 01:00 97 01/29/17 00:00 97.7 86 10 119/95 95 Vapotherm 30.00 12.00 01/29/17 00:00 93 Vapotherm 12.00 30 01/28/17 23:00 89 10 126/83 92 Vapotherm 30.00 12.00 01/28/17 22:21 91 Vapotherm 12.00 30 01/28/17 22:00 97 16 161/107 92 Vapotherm 30.00 12.00 01/28/17 21:00 100 17 158/102 93 Vapotherm 30.00 12.00 01/28/17 20:00 93 Vapotherm 12.00 30 01/28/17 20:00 98.1 98 14 147/88 94 Vapotherm 30.00 12.00 01/28/17 19:00 97 14 133/85 92 Vapotherm 30.00 12.00 01/28/17 19:00 97 01/28/17 18:36 90 Vapotherm 12.00 30 01/28/17 18:15 30.00 12.00 01/28/17 18:00 99 17 135/93 92 Vapotherm 40.00 15.00 01/28/17 17:00 96 16 144/96 92 Vapotherm 40.00 15.00 01/28/17 16:20 98.8 01/28/17 16:05 98 Vapotherm 20.00 60 01/28/17 16:00 92 12 131/92 92 Vapotherm 40.00 15.00 01/28/17 15:00 94 16 139/82 92 Vapotherm 40.00 15.00 01/28/17 14:45 Vapotherm 30.00 12.00 01/28/17 14:00 90 15 123/82 91 Vapotherm 40.00 15.00 01/28/17 13:44 94 Vapotherm 15.00 40 01/28/17 13:00 87 01/28/17 13:00 87 12 113/76 93 Vapotherm 40.00 15.00 01/28/17 12:15 Vapotherm 40.00 15.00 01/28/17 12:05 98 Vapotherm 20.00 60 01/28/17 12:00 81 11 106/64 99 Vapotherm 40.00 15.00 01/28/17 11:44 Vapotherm 40.00 15.00 01/28/17 11:36 99 Vapotherm 20.00 50 01/28/17 11:00 85 13 109/77 100 Vapotherm 50.00 20.00 01/28/17 10:00 89 13 111/79 100 Vapotherm 50.00 20.00 01/28/17 09:30 Vapotherm 50.00 20.00 01/28/17 09:00 101 12 107/85 97 Vapotherm 60.00 20.00 01/28/17 08:30 98 Vapotherm 20.00 60 01/28/17 08:00 99 23 112/87 100 Vapotherm 60.00 20.00 01/28/17 07:34 98.2 01/28/17 07:00 96 01/28/17 07:00 96 21 115/84 100 Vapotherm 60.00 20.00 I & O 01/29/17 07:00 Intake Total 2500 ml Output Total 1740 ml Balance 760 ml General Appearance: WD/WN, Mild Distress HEENT: PERRL/EOMI, Pharynx Normal Neck: Full Range of Motion, Supple Respiratory: Chest Non Tender, Crackles, Decreased Breath Sounds Cardiovascular: Tachycardia Capillary Refill: Greater Than 3 Seconds Gastrointestinal: normal bowel sounds, non tender, soft, no organomegaly, no pulsatile mass Extremity: Pedal Edema Neurologic/Psychiatric: Other (AROUSES TO VOICE) Skin: Warm/Dry, Ecchymosis Results Lab Laboratory Tests 01/28/17 03:34 01/28/17 14:10 01/28/17 21:40 01/29/17 04:18 Assessment/Plan Assessment/Plan Severe sepsis with septic shock -much improved -Solucortef 100mg IV Q 8 -pt has hx of adrenal insuff -zyvox and Merrem Acute respiratory failure -improved continue to monitor -I suspect PE however pt is too unstable for CTA -hep gtt Hx of CVID -receives IVIG as out patient UTI with recent MRSA -Will start zyvox and Merrem COPD -SVNS, oxygen Hx of anoxic encephalopathy chronic debility wheel chair bound Family at bedside. I discussed with family pts current condition and prognosis in detail. Plan is to discharge on Sunday home with [facility]. 60min was spent with family and medical staff regarding patients care. Clinical Quality Measures DVT/VTE Risk/Contraindication: Risk Factor Score Per Nursin RFS Level Per Nursing on Admit: 4+=Very High MYLA CAMARILLO DO Jan 29, 2017 06:50
--- NOTE | 2017-01-29 06:53 | Pulmonary Progress Note ---
Subjective Date Seen by Provider: Jan 29, 2017 Time Seen by Provider: 06:52 Subjective/Events-last exam Pt is doing much better today. Exam Exam Vital Signs Date Time Temp Pulse Resp B/P (MAP) Pulse Ox O2 Delivery O2 Flow Rate FiO2 01/29/17 06:00 83 10 161/116 97 Vapotherm 35.00 12.00 01/29/17 05:03 98 17 180/123 95 Vapotherm 35.00 12.00 01/29/17 05:00 96 12 172/130 94 Vapotherm 35.00 12.00 01/29/17 04:00 93 Vapotherm 12.00 35 01/29/17 04:00 97.5 87 10 157/98 96 Vapotherm 35.00 12.00 01/29/17 03:40 97 15 94 Vapotherm 35.00 12.00 01/29/17 03:00 103 21 177/119 86 Vapotherm 30.00 12.00 01/29/17 02:00 83 9 115/74 95 Vapotherm 30.00 12.00 01/29/17 01:02 92 Vapotherm 12.00 30 01/29/17 01:00 97 16 173/108 90 Vapotherm 30.00 12.00 01/29/17 01:00 97 01/29/17 00:00 97.7 86 10 119/95 95 Vapotherm 30.00 12.00 01/29/17 00:00 93 Vapotherm 12.00 30 01/28/17 23:00 89 10 126/83 92 Vapotherm 30.00 12.00 01/28/17 22:21 91 Vapotherm 12.00 30 01/28/17 22:00 97 16 161/107 92 Vapotherm 30.00 12.00 01/28/17 21:00 100 17 158/102 93 Vapotherm 30.00 12.00 01/28/17 20:00 93 Vapotherm 12.00 30 01/28/17 20:00 98.1 98 14 147/88 94 Vapotherm 30.00 12.00 01/28/17 19:00 97 14 133/85 92 Vapotherm 30.00 12.00 01/28/17 19:00 97 01/28/17 18:36 90 Vapotherm 12.00 30 01/28/17 18:15 30.00 12.00 01/28/17 18:00 99 17 135/93 92 Vapotherm 40.00 15.00 01/28/17 17:00 96 16 144/96 92 Vapotherm 40.00 15.00 01/28/17 16:20 98.8 01/28/17 16:05 98 Vapotherm 20.00 60 01/28/17 16:00 92 12 131/92 92 Vapotherm 40.00 15.00 01/28/17 15:00 94 16 139/82 92 Vapotherm 40.00 15.00 01/28/17 14:45 Vapotherm 30.00 12.00 01/28/17 14:00 90 15 123/82 91 Vapotherm 40.00 15.00 01/28/17 13:44 94 Vapotherm 15.00 40 01/28/17 13:00 87 01/28/17 13:00 87 12 113/76 93 Vapotherm 40.00 15.00 01/28/17 12:15 Vapotherm 40.00 15.00 01/28/17 12:05 98 Vapotherm 20.00 60 01/28/17 12:00 81 11 106/64 99 Vapotherm 40.00 15.00 01/28/17 11:44 Vapotherm 40.00 15.00 01/28/17 11:36 99 Vapotherm 20.00 50 01/28/17 11:00 85 13 109/77 100 Vapotherm 50.00 20.00 01/28/17 10:00 89 13 111/79 100 Vapotherm 50.00 20.00 01/28/17 09:30 Vapotherm 50.00 20.00 01/28/17 09:00 101 12 107/85 97 Vapotherm 60.00 20.00 01/28/17 08:30 98 Vapotherm 20.00 60 01/28/17 08:00 99 23 112/87 100 Vapotherm 60.00 20.00 01/28/17 07:34 98.2 01/28/17 07:00 96 01/28/17 07:00 96 21 115/84 100 Vapotherm 60.00 20.00 I & O 01/29/17 07:00 Intake Total 2500 ml Output Total 1740 ml Balance 760 ml General Appearance: WD/WN, Mild Distress HEENT: PERRL/EOMI, Pharynx Normal Neck: Full Range of Motion, Supple Respiratory: Chest Non Tender, Crackles, Decreased Breath Sounds Cardiovascular: Tachycardia Capillary Refill: Greater Than 3 Seconds Gastrointestinal: normal bowel sounds, non tender, soft, no organomegaly, no pulsatile mass Extremity: Pedal Edema Neurologic/Psychiatric: Other (AROUSES TO VOICE) Skin: Warm/Dry, Ecchymosis Results Lab Laboratory Tests 01/28/17 03:34 01/28/17 14:10 01/28/17 21:40 01/29/17 04:18 Assessment/Plan Assessment/Plan Severe sepsis with septic shock -- resolved -Solucortef 100mg IV Q 8 -pt has hx of adrenal insuff -zyvox and Merrem Acute respiratory failure -change to regular NC -I suspect PE however pt is too unstable for CTA -will start hep gtt Hx of CVID -receives IVIG as out patient UTI with recent MRSA -zyvox and Merrem -Diflucan COPD -SVNS, oxygen Hx of anoxic encephalopathy chronic debility wheel chair bound Pt is doing much better. She is more awake and complaining of pain. I will keep her in the ICU 1 more day then transfer to 4th floor. Plan is for home hospice with [facility] on Sunday. 233 Clinical Quality Measures DVT/VTE Risk/Contraindication: Risk Factor Score Per Nursin RFS Level Per Nursing on Admit: 4+=Very High MYLA CAMARILLO DO Jan 29, 2017 06:53
[2017-01-29] MEDS ORDERED: NS W/KCL 20 MEQ/L 1,000 ML IV SCH (07:00)
[2017-01-29] MEDS ORDERED: POTASSIUM PHOSPHATE INJ 30 MM in NS (IVPB) 250 ML IV ONE (07:15)
[2017-01-29] MEDS: NS IV 500 ML 500 ML IV ONE (07:52)
[2017-01-29] MEDS: FLUDROCORTISONE 0.1 MG (FLORINEF) TAB PO SCH (07:57)
[2017-01-29] MEDS: NOREPINEPHRINE 4 MG in D5W 250 ML (IVPB) 250 ML IV SCH ×2 (07:57→23:07)
--- NOTE | 2017-01-29 08:49 | Diagnostic Imaging Report ---
EXAM: CHEST 1 VIEW, AP/PA ONLY INDICATION: Pneumonia. COMPARISON: Chest radiograph 01/28/2017. FINDINGS: Low lung volumes. Persistent airspace opacities throughout the upper right lung and mid left lung. Normal heart size and pulmonary vascularity. Right IJ tunneled port CVC tip low SVC. Esophageal hiatal hernia. No acute osseous findings. IMPRESSION: Stable airspace opacities in the right upper and left mid lungs. Dictated by: Dictated on workstation # [id number]
[2017-01-29] MEDS: FLUCONAZOLE 100 MG/50 ML 50 ML IV SCH (09:12)
[2017-01-29] MEDS: PANTOPRAZOLE 40 MG/10 ML (PROTONIX) VIAL IV SCH (09:13)
[2017-01-29] MEDS: BRIMONIDINE 0.2% (ALPHAGAN) OPHTH SOLN 5 ML BTL OS SCH ×3 (09:13→20:52)
[2017-01-29] MEDS: LINEZOLID IVPB 300 ML IV SCH ×2 (09:13→20:52)
[2017-01-29] MEDS: TIMOLOL MALEATE 0.5% 5 ML (TIMOPTIC) BTL OS SCH ×2 (09:13→20:53)
--- NOTE | 2017-01-29 09:39 | Speech Therapy Progress Note ---
Therapy Progress Note No speech therapy services available 01/29/17. Orders were acknowledged and nursing notified that if patient has swallowing difficulty then the policy for RN bedside swallow screen should be followed. [employer] FINANCE MANAGER will consult 01/30/17. Jose Tipton PT. JOSE TIPTON PT Jan 29, 2017 09:39
[2017-01-29] MEDS ORDERED: IOHEXOL 350 MG/ML 150 ML (OMNIPAQUE 350) VIAL IV ONE (11:00)
[2017-01-29] MEDS ORDERED: NS 100 ML (IVPB) BAG IV ONE (11:00)
[2017-01-29 12:11] LABS: ANION GAP 9 MMOL/L (5-14); BLOOD UREA NITROGEN 12 MG/DL (7-18); BUN/CREATININE RATIO 26; CALCIUM 7.5 MG/DL (8.5-10.1); CARBON DIOXIDE 23 MMOL/L (21-32); CHLORIDE 104 MMOL/L (98-107); CREATININE SERUM 0.46 MG/DL (0.60-1.30); GFR ESTIMATED > 60; GLUCOSE 120 MG/DL (70-105); POTASSIUM 3.2 MMOL/L (3.6-5.0); SODIUM 136 MMOL/L (135-145)
--- NOTE | 2017-01-29 13:28 | Diagnostic Imaging Report ---
PROCEDURE: CT angiography of the chest with contrast. TECHNIQUE: Multiple contiguous axial images were obtained through the chest after uneventful bolus administration of intravenous contrast. Reconstructed CTA MIP acquisitions were also performed. INDICATION: Pneumonia. 125 mL of Omnipaque 350 is administered intravenously. FINDINGS: There are bilateral patchy areas of consolidation suggestive of pneumonia. There is also atelectasis in the lung bases. There are bilateral small pleural effusions. The heart size is enlarged. There is normal opacification of the thoracic aorta with no dissection. The pulmonary arteries are opacified with no PE seen. Some of the peripheral small branches are not well evaluated due to mild respiratory motion artifact. No significant lymphadenopathy in the mediastinum, the solitario or in the axilla. The osseous structures demonstrate prominent kyphosis, particularly in the upper thoracic spine and degenerative changes. The upper abdomen sections demonstrate no definite abnormality. IMPRESSION: Bilateral pulmonary consolidation probably related to pneumonia. There are also bilateral small pleural effusions. Dictated by: Dictated on workstation # [id number]
[2017-01-29] MEDS: D5 1/2 NS W/KCL 20 MEQ/L 1,000 ML IV SCH (16:54)
[2017-01-29] MEDS ORDERED: ONDANSETRON 4 MG/2 ML (SDV) Z0FRAN IVP PRN (19:30)
--- NOTE | 2017-01-29 20:38 | Progress Note (SOAP) ---
Subjective Subjective Date Seen by Provider: Jan 29, 2017 Time Seen by Provider: 07:30 66 yo F cc: unresponsive, hypotension. Pt doing much better- this AM she woke up more and was talking clearly (her baseline) and making sense. was very surprised as he had thought she was going to continue to decline. He has stayed with her in the ICU. Pressors are off- Pt improving on antibiotics and steroids. Review of Systems ROS Unable to Obtain: difficult to understand General: Fatigue HEENT: No Head Aches Pulmonary: Dyspnea Cardiovascular: No: Chest Pain Gastrointestinal: No: Nausea Genitourinary: No Dysuria Musculoskeletal: leg pain Neurological: Weakness skin bruising Objective Exam Vital Signs Vital Signs Date Time Temp Pulse Resp B/P (MAP) Pulse Ox O2 Delivery O2 Flow Rate FiO2 01/29/17 20:00 95 Nasal Cannula 2.00 01/29/17 20:00 95 Nasal Cannula 2.00 01/29/17 20:00 92 12 150/107 95 Nasal Cannula 2.00 01/29/17 19:00 96 01/29/17 19:00 98.6 95 11 137/98 90 Room Air 01/29/17 18:00 96 17 149/90 91 High Flow N/C 4.00 01/29/17 17:00 87 15 158/92 96 High Flow N/C 4.00 01/29/17 16:00 93 Vapotherm 12.00 35 01/29/17 16:00 95 15 151/105 97 High Flow N/C 4.00 01/29/17 15:00 92 14 138/101 97 High Flow N/C 4.00 01/29/17 14:36 100 Nasal Cannula 4.00 01/29/17 14:00 91 13 152/103 100 High Flow N/C 4.00 01/29/17 13:00 92 14 157/101 99 High Flow N/C 4.00 01/29/17 13:00 90 01/29/17 12:00 97.7 92 15 165/110 98 High Flow N/C 6.00 01/29/17 11:23 93 Vapotherm 12.00 35 01/29/17 11:00 91 11 142/111 100 Nasal Cannula 6.00 01/29/17 10:23 96 Vapotherm 7.00 35 01/29/17 10:00 98 23 152/94 95 Vapotherm 35.00 01/29/17 09:00 101 22 156/107 92 Vapotherm 35.00 01/29/17 08:00 97.0 98 13 138/96 93 Vapotherm 35.00 01/29/17 08:00 93 Vapotherm 12.00 35 01/29/17 07:00 96 13 153/102 93 Vapotherm 35.00 7.00 01/29/17 07:00 98 01/29/17 06:40 98 15 95 Vapotherm 35.00 7.00 01/29/17 06:29 96 Vapotherm 12.00 35 01/29/17 06:00 83 10 161/116 97 Vapotherm 35.00 12.00 01/29/17 05:03 98 17 180/123 95 Vapotherm 35.00 12.00 01/29/17 05:00 96 12 172/130 94 Vapotherm 35.00 12.00 01/29/17 04:00 93 Vapotherm 12.00 35 01/29/17 04:00 97.5 87 10 157/98 96 Vapotherm 35.00 12.00 01/29/17 03:40 97 15 94 Vapotherm 35.00 12.00 01/29/17 03:00 103 21 177/119 86 Vapotherm 30.00 12.00 01/29/17 02:00 83 9 115/74 95 Vapotherm 30.00 12.00 01/29/17 01:02 92 Vapotherm 12.00 30 01/29/17 01:00 97 16 173/108 90 Vapotherm 30.00 12.00 01/29/17 01:00 97 01/29/17 00:00 97.7 86 10 119/95 95 Vapotherm 30.00 12.00 01/29/17 00:00 93 Vapotherm 12.00 30 01/28/17 23:00 89 10 126/83 92 Vapotherm 30.00 12.00 01/28/17 22:21 91 Vapotherm 12.00 30 01/28/17 22:00 97 16 161/107 92 Vapotherm 30.00 12.00 01/28/17 21:00 100 17 158/102 93 Vapotherm 30.00 12.00 I & O 01/29/17 07:00 Intake Total 3600 ml Output Total 2290 ml Balance 1310 ml General Appearance: Mild Distress (respiratory) HEENT: PERRL/EOMI, Pharynx Normal Neck: Full Range of Motion, Supple Respiratory: Chest Non Tender, Crackles, Decreased Breath Sounds Cardiovascular: Tachycardia Gastrointestinal: Non Tender, Soft Rectal: Deferred Back: Other (kyphosis) Extremity: Pedal Edema (minimal), Other (leg contractures) Neurologic/Psychiatric: Alert (communicating effectively) Skin: Warm/Dry, Ecchymosis Results Lab Laboratory Tests 01/28/17 21:40: Potassium Level 2.3*L, Magnesium Level 1.8 01/29/17 04:18: Potassium Level 2.8L, Magnesium Level 1.8, White Blood Count 11.8H, Red Blood Count 3.42L, Hemoglobin 8.3L, Hematocrit 27L, Mean Corpuscular Volume 79L, Mean Corpuscular Hemoglobin 24L, Mean Corpuscular Hemoglobin Concent 31L, Red Cell Distribution Width 19.7H, Platelet Count 205, Mean Platelet Volume 10.0, Neutrophils (%) (Auto) 89H, Lymphocytes (%) (Auto) 8L, Monocytes (%) (Auto) 3, Eosinophils (%) (Auto) 0, Basophils (%) (Auto) 0, Neutrophils # (Auto) 10.5H, Lymphocytes # (Auto) 1.0, Monocytes # (Auto) 0.3, Eosinophils # (Auto) 0.0, Basophils # (Auto) 0.0, Neutrophils % (Manual) 84, Lymphocytes % (Manual) 10, Monocytes % (Manual) 2, Eosinophils % (Manual) 0, Basophils % (Manual) 0, Band Neutrophils 4, Toxic Granulation 1+, Hypochromasia SLIGHT, Poikilocytosis MODERATE, Anisocytosis SLIGHT, Tear Drop Cells SLIGHT, Elliptocytes SLIGHT, Prothrombin Time 12.8, INR Comment 1.0, Activated Partial Thromboplast Time 61H , Sodium Level 137, Chloride Level 105, Carbon Dioxide Level 22, Anion Gap 10, Blood Urea Nitrogen 16, Creatinine 0.44L, Estimat Glomerular Filtration Rate > 60, BUN/Creatinine Ratio 36, Glucose Level 84, Calcium Level 7.4L, Phosphorus Level 1.4L 01/29/17 11:10: Potassium Level 3.2L, Activated Partial Thromboplast Time 89H, Sodium Level 136 , Chloride Level 104, Carbon Dioxide Level 23, Anion Gap 9, Blood Urea Nitrogen 12, Creatinine 0.46L, Estimat Glomerular Filtration Rate > 60, BUN/Creatinine Ratio 26, Glucose Level 120H, Calcium Level 7.5L Microbiology 01/26/17 Blood Culture - Preliminary, Resulted No growth 01/28/17 C. difficile GDH Antigen & Toxins - Final, Complete 01/26/17 Urine Culture - Final, Complete Pseudomonas Aeruginosa Enterococcus Faecalis Presumptive China Albicans Assessment/Plan Assessment/Plan Assessment/Plan 66 yo F -Severe sepsis with Shock (resolved) due to pneumonia, UTI- barraza culture, merropenem, linezolid, fluconazole, IVF -supportive care - acute hypoxic respiratory failure- due to pneumonia- bibasilar- on oxygen- vapotherm- weaning down oxygen Dr. Vera consulted CTA negative for PE- - hypotension- IVF- treating sepsis- resolved- -Adrenal insuffiency- solucortef 100mg q8hr iv. (D84.9) h/o immunoglobulin Immunodeficiency - gets IgA on Fridays (J44.0) Chronic obstructive pulmonary disease - Dr. 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 Ndiaye- has a suprapubic catheter. (G93.1) Anoxic brain damage, not elsewhere classified - h/o choking on 2009- wheelchair bound (R13.12) Dysphagia, oropharyngeal phase -SLT 01/30/17 (G89.4) Chronic pain syndrome - on oxycodone as outpt- continue IV morphine (I10) Essential (primary) hypertension - monitor bp may need to restart home meds. (F33.8) Other recurrent depressive disorders- monitor (F41.9) Anxiety disorder - has xanax as outpt. (K21.9) Gastro-esophageal reflux disease without esophagitis - pantoprazole IV hypokalemia- replacing. Dispo: poor prognosis- -Improved though- not on pressors- -CTA this afternoon- negative for PE- but with bibasilar pneumonia -heparin protocol stopped. -Plan to d/c to home on Sunday with [facility]. (question of how to proceed with abx as [facility] does not allow IV antibiotics and po may be an issue. ) Problems: Clinical Quality Measures DVT/VTE Risk/Contraindication: Risk Factor Score Per Nursin RFS Level Per Nursing on Admit: 4+=Very High SKY KAUR MD Jan 29, 2017 20:38
[2017-01-29] MEDS ORDERED: ALPRAZolam 0.25 MG (XANAX) TAB PO PRN (21:00)
[2017-01-30] VITALS (23 sets, daily range): BP systolic 121–190; BP diastolic 78–126
[2017-01-30] MEDS: MEROPENEM 500 MG/NS 100 ML IVPB IV SCH ×8 (00:18→19:03)
[2017-01-30] MEDS: D5 1/2 NS W/KCL 20 MEQ/L 1,000 ML IV SCH ×3 (01:54→18:07)
[2017-01-30] MEDS: morphine INJ 4 MG/ML 1 ML (VIAL/SYRINGE) IVP PRN ×6 (01:57→21:56)
[2017-01-30] MEDS: RT-ALBUTEROL/IPRATROPIUM 3 ML (DUONEB) VIAL IH SCH ×6 (02:32→22:37)
[2017-01-30 05:06] LABS: BASOPHILS % (AUTO) 0 % (0-10); EOSINOPHILS % (AUTO) 0 % (0-10); LYMPHOCYTES # (AUTO) 1.2 X 10^3 (1.0-4.0); LYMPHOCYTES % (AUTO) 12 % (12-44); MEAN CORPUSCULAR HEMOGLOBIN 24 PG (25-34); MEAN CORPUSCULAR HGB CONC 30 G/DL (32-36); MEAN CORPUSCULAR VOLUME 79 FL (80-99); MEAN PLATELET VOLUME 10.1 FL (7.4-10.4); MONOCYTES # (AUTO) 0.3 X 10^3 (0.0-1.0); MONOCYTES % (AUTO) 3 % (0-12); NEUTROPHILS # (AUTO) 8.3 X 10^3 (1.8-7.8); NEUTROPHILS % (AUTO) 84 % (42-75); PLATELET COUNT 182 10^3/uL (130-400); RED CELL DISTRIBUTION WIDTH 19.8 % (10.0-14.5); WHITE BLOOD COUNT 9.9 10^3/uL (4.3-11.0)
[2017-01-30] MEDS: HYDROCORTISONE 100 MG/2 ML (Solu-CORTEF) VIAL IV SCH ×3 (05:16→21:56)
[2017-01-30 05:38] LABS: ANION GAP 13 MMOL/L (5-14); BLOOD UREA NITROGEN 7 MG/DL (7-18); BUN/CREATININE RATIO 17; CALCIUM 7.2 MG/DL (8.5-10.1); CARBON DIOXIDE 22 MMOL/L (21-32); CHLORIDE 103 MMOL/L (98-107); CREATININE SERUM 0.42 MG/DL (0.60-1.30); GFR ESTIMATED > 60; GLUCOSE 143 MG/DL (70-105); MAGNESIUM 1.5 MG/DL (1.8-2.4); PHOSPHORUS 1.9 MG/DL (2.3-4.7); SODIUM 138 MMOL/L (135-145)
[2017-01-30 05:41] LABS: POTASSIUM 2.5 MMOL/L (3.6-5.0)
[2017-01-30] MEDS: KCL 20 MEQ TAB (K-DUR) PO SCH (05:55)
[2017-01-30] MEDS: MAGNESIUM 1 GM/100 ML IVPB 100 ML IV SCH ×5 (05:55→11:09)
[2017-01-30] MEDS: POTASSIUM CL 10MEQ/50ML IVPB 50 ML IV SCH ×15 (06:23→19:04)
[2017-01-30] MEDS ORDERED: SODIUM PHOSPHATE INJ 30 MM in NS (IVPB) 250 ML IV ONE (06:45)
--- NOTE | 2017-01-30 07:07 | Pulmonary Progress Note ---
Subjective Time Seen by Provider: 07:05 Subjective/Events-last exam PT is doing better she is more awake/alert. Exam Exam Vital Signs Date Time Temp Pulse Resp B/P (MAP) Pulse Ox O2 Delivery O2 Flow Rate FiO2 01/30/17 06:14 96 Nasal Cannula 2.00 01/30/17 06:00 87 12 150/109 98 Nasal Cannula 2.00 01/30/17 05:00 73 20 146/91 99 Nasal Cannula 2.00 01/30/17 04:00 98 Nasal Cannula 2.00 01/30/17 04:00 82 11 148/94 99 Nasal Cannula 2.00 01/30/17 03:00 79 21 121/79 97 Nasal Cannula 2.00 01/30/17 02:33 97 Nasal Cannula 2.00 01/30/17 02:00 89 14 161/98 94 Nasal Cannula 2.00 01/30/17 01:00 90 01/30/17 01:00 87 14 154/98 9 Nasal Cannula 2.00 01/30/17 00:00 96 Nasal Cannula 2.00 01/30/17 00:00 97.9 88 14 155/92 97 Nasal Cannula 2.00 01/29/17 23:14 98 Nasal Cannula 2.00 01/29/17 23:00 86 15 131/88 98 Nasal Cannula 2.00 01/29/17 22:00 86 15 130/89 98 Nasal Cannula 2.00 01/29/17 21:00 100 22 151/97 94 Nasal Cannula 2.00 01/29/17 20:00 95 Nasal Cannula 2.00 01/29/17 20:00 95 Nasal Cannula 2.00 01/29/17 20:00 92 12 150/107 95 Nasal Cannula 2.00 01/29/17 19:00 96 01/29/17 19:00 98.6 95 11 137/98 90 Room Air 01/29/17 18:00 96 17 149/90 91 High Flow N/C 4.00 01/29/17 17:00 87 15 158/92 96 High Flow N/C 4.00 01/29/17 16:00 93 Vapotherm 12.00 35 01/29/17 16:00 95 15 151/105 97 High Flow N/C 4.00 01/29/17 15:00 92 14 138/101 97 High Flow N/C 4.00 01/29/17 14:36 100 Nasal Cannula 4.00 01/29/17 14:00 91 13 152/103 100 High Flow N/C 4.00 01/29/17 13:00 92 14 157/101 99 High Flow N/C 4.00 01/29/17 13:00 90 01/29/17 12:00 97.7 92 15 165/110 98 High Flow N/C 6.00 01/29/17 11:23 93 Vapotherm 12.00 35 01/29/17 11:00 91 11 142/111 100 Nasal Cannula 6.00 01/29/17 10:23 96 Vapotherm 7.00 35 01/29/17 10:00 98 23 152/94 95 Vapotherm 35.00 01/29/17 09:00 101 22 156/107 92 Vapotherm 35.00 01/29/17 08:00 97.0 98 13 138/96 93 Vapotherm 35.00 01/29/17 08:00 93 Vapotherm 12.00 35 I & O 01/30/17 07:00 Intake Total 1955 ml Output Total 4075 ml Balance -2120 ml General Appearance: No Apparent Distress, Anxious HEENT: PERRL/EOMI, Pharynx Normal Neck: Full Range of Motion, Supple Respiratory: Chest Non Tender, Crackles, Decreased Breath Sounds Cardiovascular: Tachycardia Capillary Refill: Less Than 3 Seconds Gastrointestinal: normal bowel sounds, non tender, soft, no organomegaly, no pulsatile mass Extremity: Pedal Edema (minimal), Other (leg contractures) Neurologic/Psychiatric: Alert (communicating effectively) Skin: Warm/Dry, Ecchymosis Results Lab Laboratory Tests 01/28/17 14:10 01/28/17 21:40 01/29/17 04:18 01/29/17 11:10 01/30/17 04:35 Assessment/Plan Assessment/Plan Severe sepsis with septic shock -- resolved -Solucortef 100mg IV Q 8 -pt has hx of adrenal insuff -zyvox and Merrem Acute respiratory failure -change to regular NC -CT of chest reviewed and is negative for PE -D/C hep gtt Dysphagia -pt has swallow eval ordered today. Hx of CVID -receives IVIG as out patient UTI with pseudomonus and enterococcus and recent MRSA -zyvox and Merrem -Change to PO Levaquin, diflucan, and macrobid upon discharge -Diflucan COPD -SVNS, oxygen Hx of anoxic encephalopathy chronic debility wheel chair bound Pt is doing much better. She is more awake and complaining of pain. 60min spent with patient and medical staff discussing plan of care and hospice. Pt will probably be discharged tomorrow with hospice. I will have [facility] see patient today. Clinical Quality Measures DVT/VTE Risk/Contraindication: Risk Factor Score Per Nursin RFS Level Per Nursing on Admit: 4+=Very High MYLA CAMARILLO DO Jan 30, 2017 07:07
[2017-01-30] MEDS ORDERED: morphine INJ 10 MG/ML 1ML (SYR OR VIAL) IVP ONE (07:15)
[2017-01-30] MEDS: FLUCONAZOLE 100 MG/50 ML 50 ML IV SCH (08:06)
[2017-01-30] MEDS: PANTOPRAZOLE 40 MG/10 ML (PROTONIX) VIAL IV SCH (08:07)
[2017-01-30] MEDS: LINEZOLID IVPB 300 ML IV SCH ×2 (09:29→20:13)
[2017-01-30] MEDS: FLUDROCORTISONE 0.1 MG (FLORINEF) TAB PO SCH (09:30)
[2017-01-30] MEDS: TIMOLOL MALEATE 0.5% 5 ML (TIMOPTIC) BTL OS SCH ×2 (09:34→20:14)
[2017-01-30] MEDS: BRIMONIDINE 0.2% (ALPHAGAN) OPHTH SOLN 5 ML BTL OS SCH ×3 (09:34→20:15)
--- NOTE | 2017-01-30 11:19 | ST Dysphagia Evaluation ---
Speech Evaluation-General Medical Diagnosis Sepsis, Acute Respiratory Failure, UTI Onset Date: Jan 29, 2017 Therapy Diagnosis Therapy Diagnosis: Severe Oropharyngeal Dysphagia Precautions Precautions: Aspiration Precautions/Isolations: Aspiration, Fall Prevention, Standard Precautions, Pressure Ulcer Referral Referring Physician: Dr. Benjie Vera Reason for Referral: Evaluation/Treatment Clinical Bedside Swallowing Evaluation Medical History Pertinent Medical History: COPD, GERD, HTN, Renal Insufficiency, TBI Anoxic Encephalopathy Speech PLF/Current-Dysphagia Prior Level of Function The patient was unable to provide information to clinician regarding her prior level of function. The patient's reported the patient consumed a regular diet with nectar-thick liquids at home. Per , the patient demonstrated immediate coughing and choking with liquid consistencies if they were not thickened. Subjective The patient was recently admitted to [facility] with a diagnosis of sepsis, acute respiratory failure, and UTI. The patient was sleeping upon entrance. The patient was easily roused with verbal prompts from the clinician. With the aid of pillows, the patient was positioned upright in bed. Regardless of the presence of the pillows, the patient's head remained tilted to the left shoulder. The patient's SpO2% was 93% at baseline, prior to bolus trials. The patient was agreeable to participation in the dysphagia evaluation, stating, "I' ll try." Per chart review, the patient is scheduled to discharge on 01/31/17 with hospice services. Hospice and family are hopeful the patient will be able to consume PO medication for return to home. The patient's and additional family member was present at bedside for the evaluation. CXR: 01/29/17: Stable airspace opacities in the right upper and left mid lungs. Cognitive Status Patient Orientation: Person Oral Motor Skills Dentition: Natural Current Food Consistancy: Mechanical Soft, Falconer Liquids Ability to Follow Directions: Fair Oral Expression Ability: Moderate Impairment Voice Voice Phonatory-Based Quality: Weak, Glottal Cormier Voice Pitch: Normal Voice Loudness: Mildly Soft/Quiet Face Facial Symmetry: Asymmetrical (Complete left facial droop present.) Oral-Facial Assessment Oral-Facial Dentition: Normal Labial Seal Description: Weak (Bilaterally (left more than right).) Smile: Reduced ROM (Bilaterally.) Dysphagia Evaluation Consistencies Presented: Honey Thick Liquid, Pureed Oral Phase: Anterior Spillage, Reduced Oral Transit - The patient demonstrated anterior spillage of honey-thick liquid with teaspoon administration. The patient demonstrated reduced ability secondary to oral strength to draw honey-thick liquid through straw. Following effortful attempts, the patient was successful of drawing honey-thick material through the straw. Pharyngeal Phase: Multiple Swallow Attempts, Reduced Laryngeal Elevation, Delayed Swallow Funct. Velo/Pharyngeal Symptom: Wet Voice - Puree: No signs/symptoms of aspiration were demonstrated with multiple boluses of puree, however, slight anterior loss of residual bolus material was noted through the left labial region. The patient's vocal quality remained clear and her SpO2% remained at 93%. - Honey-Thick Liquid (via straw): The patient demonstrated a delayed throat clear, as well as, an overtly wet vocal quality with limited straw trials of honey-thick liquid. The patient was unable to take bolus material from cup or teaspoon due to labial weakness and asymmetry. Dietary Recommendations: Pureed Liquid Recommendations: NPO - Limited PO intake of puree consistencies, only (with the goal of consuming medication orally). No liquid consistencies (regardless of thickness) is recommended due to overt signs/symptoms of aspiration demonstrated. Crush all medications and place in puree. This recommendation was discussed with the RN. Swallowing Precautions: Decreased Bolus 1/4 Tsp, Decreased Rate of Oral Intake , Oral Supervision Staff, Oral Supervision Caregiver, Pocketing (Assess for pocketing following puree administration.), Small Bites and Sips, Sitting 90 Degrees 30 Post Intake Dysphagia Evaluation Summary The patient presents with severe oropharyngeal dysphagia characterized by reduced labial and lingual range of motion and strength, decreased laryngeal elevation, and reduced respiratory status. The patient remains at a high risk for aspiration with all consistencies due to reduced alertness and ability to follow commands. Supervision with all PO intake is recommended. Speech Short Term Goals Short Term Goals Short Term Goals 1. The patient will tolerate trials of the least restrictive consistency without signs/symptoms of aspiration. Time Frame-STG: Three Days Speech Rod Pointer Goals Rod Pointer Goals 1. The patient will tolerate the least restrictive diet consistency without signs/symptoms of aspiration. Time Frame: One Week Speech-Plan Treatment Plan Speech Therapy Treatment Plan: Continue Plan of Care Continue skilled speech pathology to target swallowing strategies in attempts to reduce the patient's risk of aspiration with PO intake. Frequency: 3 times per week Estimated Hrs Per Day: .25 hour per day Rehab Potential: Guarded Safety Risks/Education Teaching Recipient: Patient, Significant Other Teaching Methods: Discussion Response to Teaching: Reinforcement Needed Education Topics Provided: Results, Recommendations, Plan of Care, Swallowing Strategies Time Speech Therapy Time In: 09:40 Speech Therapy Time Out: 10:00 Total Billed Time: 20 Billed Treatment Time 1HAR[address] ST Jan 30, 2017 11:19
[2017-01-30] MEDS ORDERED: PATIENT MAY USE OWN MED,SINGLE MED PO SCH (11:30)
--- NOTE | 2017-01-30 11:37 | Diagnostic Imaging Report ---
INDICATION: Pneumonia and sepsis. 0535 hours FINDINGS: Portable supine image of the chest is obtained with comparison made study of one day earlier. Study is limited due to patient positioning and suboptimal inspiration. There is mild improvement in aeration of lungs however, there is continued atelectasis and/or pneumonitis in the right perihilar region with obscuration of left hemidiaphragm. No definite pneumothorax is appreciated. IMPRESSION: Mild improvement in aeration of lungs however, there is probable atelectasis and/or pneumonitis in the right perihilar and left basilar regions. Dictated by: Dictated on workstation # [id number]
[2017-01-30] MEDS ORDERED: ALPRAZolam 0.25 MG (XANAX) TAB PO PRN (12:45)
[2017-01-30] MEDS: CARBAMAZEPINE 100 MG PO SCH ×2 (12:45→20:13)
[2017-01-30] MEDS ORDERED: HYDROmorphone (DILAUDID) 2 MG/ML VIAL IVP ONE (12:45)
[2017-01-30] MEDS ORDERED: oxyCODONE/APAP 10/325MG (PERCOCET 10) TABLET PO PRN (12:45)
--- NOTE | 2017-01-30 12:46 | Progress Note (SOAP) ---
Subjective Subjective Date Seen by Provider: Jan 30, 2017 Time Seen by Provider: 12:30 66 yo F cc: unresponsive, hypotension, septic shock. Pt doing much better- talking with family and staff. Review of Systems ROS Unable to Obtain: difficult to understand General: Fatigue HEENT: No Head Aches Pulmonary: Dyspnea Cardiovascular: No: Chest Pain Gastrointestinal: No: Nausea Genitourinary: No Dysuria Musculoskeletal: leg pain Neurological: Weakness skin bruising Objective Exam Vital Signs Temp 97.5F, BP 125/82, pulse 96, resp 13, oxygen NC 2L General Appearance: Mild Distress (in pain) HEENT: PERRL/EOMI Neck: Full Range of Motion, Supple Respiratory: Chest Non Tender, Crackles, Decreased Breath Sounds Cardiovascular: Tachycardia Gastrointestinal: Non Tender, Soft Rectal: Deferred Back: Other (kyphosis) Extremity: Pedal Edema (1+), Other (leg contractures) Neurologic/Psychiatric: Alert (communicating effectively) Skin: Warm/Dry, Ecchymosis Results Lab Laboratory Tests 01/30/17 04:35: White Blood Count 9.9, Red Blood Count 3.40L, Hemoglobin 8.2L, Hematocrit 27L, Mean Corpuscular Volume 79L, Mean Corpuscular Hemoglobin 24L, Mean Corpuscular Hemoglobin Concent 30L, Red Cell Distribution Width 19.8H, Platelet Count 182, Mean Platelet Volume 10.1, Neutrophils (%) (Auto) 84H, Lymphocytes (%) (Auto) 12 , Monocytes (%) (Auto) 3, Eosinophils (%) (Auto) 0, Basophils (%) (Auto) 0, Neutrophils # (Auto) 8.3H, Lymphocytes # (Auto) 1.2, Monocytes # (Auto) 0.3, Eosinophils # (Auto) 0.0, Basophils # (Auto) 0.0, Activated Partial Thromboplast Time 28, Sodium Level 138, Potassium Level 2.5*L, Chloride Level 103, Carbon Dioxide Level 22, Anion Gap 13, Blood Urea Nitrogen 7, Creatinine 0.42L, Estimat Glomerular Filtration Rate > 60, BUN/Creatinine Ratio 17, Glucose Level 143H, Calcium Level 7.2L, Phosphorus Level 1.9L, Magnesium Level 1.5L Microbiology 01/26/17 Blood Culture - Preliminary, Resulted No growth 01/28/17 C. difficile GDH Antigen & Toxins - Final, Complete 01/26/17 Urine Culture - Final, Complete Pseudomonas Aeruginosa Enterococcus Faecalis Presumptive China Albicans Assessment/Plan Assessment/Plan Assessment/Plan 66 yo F -Severe sepsis with Shock (resolved) due to pneumonia, UTI- barraza culture, merropenem, linezolid, fluconazole- changing to levoquin, macrobid, fluconazole , IVF -supportive care - acute hypoxic respiratory failure- due to pneumonia- bibasilar- much improved - on oxygen via NC Dr. Vera consulted CTA negative for PE- - hypotension- IVF- treating sepsis- resolved- -Adrenal insuffiency- solucortef 100mg q8hr iv. (D84.9) h/o immunoglobulin Immunodeficiency - gets IgA on Fridays (J44.0) Chronic obstructive pulmonary disease - Dr. 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 Ndiaye- has a suprapubic catheter. (G93.1) Anoxic brain damage, not elsewhere classified - h/o choking on 2009- wheelchair bound (R13.12) Dysphagia, oropharyngeal phase -SLT 01/30/17 (G89.4) Chronic pain syndrome - on oxycodone as outpt- continue IV morphine (I10) Essential (primary) hypertension - monitor bp- pt placed on metoprolol by eICU (F33.8) Other recurrent depressive disorders- monitor (F41.9) Anxiety disorder - has xanax po, lorazepam iv. (K21.9) Gastro-esophageal reflux disease without esophagitis - pantoprazole IV hypokalemia- replacing. Dispo: poor prognosis- -Plan to d/c to home on Sunday with [facility]. Is suppose to have an [place] meeting today. Problems: Clinical Quality Measures DVT/VTE Risk/Contraindication: Risk Factor Score Per Nursin RFS Level Per Nursing on Admit: 4+=Very High SKY KAUR MD Jan 30, 2017 12:46
[2017-01-30] MEDS: NOREPINEPHRINE 4 MG in D5W 250 ML (IVPB) 250 ML IV SCH (14:34)
[2017-01-30 15:35] LABS: MAGNESIUM 2.2 MG/DL (1.8-2.4)
[2017-01-30 15:40] LABS: POTASSIUM 2.5 MMOL/L (3.6-5.0)
[2017-01-30] MEDS: oxyCODONE/APAP 10/325MG (PERCOCET 10) TABLET PO PRN (20:13)
[2017-01-30] MEDS: CATHETER FLUSH 10 ML SYR IV PRN (21:57)
[2017-01-31] VITALS (14 sets, daily range): BP systolic 125–189; BP diastolic 82–133
[2017-01-31] MEDS: oxyCODONE/APAP 10/325MG (PERCOCET 10) TABLET PO PRN ×3 (00:22→08:59)
[2017-01-31] MEDS: MEROPENEM 500 MG/NS 100 ML IVPB IV SCH ×6 (00:30→12:07)
[2017-01-31] MEDS: morphine INJ 4 MG/ML 1 ML (VIAL/SYRINGE) IVP PRN ×5 (02:18→10:35)
[2017-01-31] MEDS: NOREPINEPHRINE 4 MG in D5W 250 ML (IVPB) 250 ML IV SCH (02:20)
[2017-01-31] MEDS: RT-ALBUTEROL/IPRATROPIUM 3 ML (DUONEB) VIAL IH SCH ×4 (02:33→14:05)
[2017-01-31 04:25] LABS: BASOPHILS % (AUTO) 0 % (0-10); EOSINOPHILS % (AUTO) 0 % (0-10); LYMPHOCYTES # (AUTO) 1.5 X 10^3 (1.0-4.0); LYMPHOCYTES % (AUTO) 16 % (12-44); MEAN CORPUSCULAR HEMOGLOBIN 24 PG (25-34); MEAN CORPUSCULAR HGB CONC 31 G/DL (32-36); MEAN CORPUSCULAR VOLUME 79 FL (80-99); MEAN PLATELET VOLUME 9.8 FL (7.4-10.4); MONOCYTES # (AUTO) 0.4 X 10^3 (0.0-1.0); MONOCYTES % (AUTO) 4 % (0-12); NEUTROPHILS # (AUTO) 7.3 X 10^3 (1.8-7.8); NEUTROPHILS % (AUTO) 80 % (42-75); PLATELET COUNT 191 10^3/uL (130-400); RED BLOOD COUNT 3.81 10^6/uL (4.35-5.85); RED CELL DISTRIBUTION WIDTH 19.7 % (10.0-14.5); WHITE BLOOD COUNT 9.2 10^3/uL (4.3-11.0)
[2017-01-31] MEDS: D5 1/2 NS W/KCL 20 MEQ/L 1,000 ML IV SCH (04:54)
[2017-01-31 05:11] LABS: ANION GAP 10 MMOL/L (5-14); BLOOD UREA NITROGEN 5 MG/DL (7-18); BUN/CREATININE RATIO 12; CALCIUM 7.7 MG/DL (8.5-10.1); CARBON DIOXIDE 26 MMOL/L (21-32); CHLORIDE 102 MMOL/L (98-107); CREATININE SERUM 0.41 MG/DL (0.60-1.30); GFR ESTIMATED > 60; GLUCOSE 148 MG/DL (70-105); MAGNESIUM 1.7 MG/DL (1.8-2.4); PHOSPHORUS 1.6 MG/DL (2.3-4.7); POTASSIUM 3.1 MMOL/L (3.6-5.0); SODIUM 138 MMOL/L (135-145)
[2017-01-31] MEDS: POTASSIUM CL 10MEQ/50ML IVPB 50 ML IV SCH ×6 (05:58→10:37)
[2017-01-31] MEDS: MAGNESIUM 1 GM/100 ML IVPB 100 ML IV SCH ×3 (05:58→07:27)
[2017-01-31] MEDS: KCL 20 MEQ TAB (K-DUR) PO SCH (06:00)
[2017-01-31] MEDS: HYDROCORTISONE 100 MG/2 ML (Solu-CORTEF) VIAL IV SCH (06:15)
[2017-01-31] MEDS ORDERED: POTASSIUM CL 10MEQ/50ML IVPB 50 ML IV SCH (07:00)
[2017-01-31] MEDS ORDERED: meTOprolol 5 MG/5 ML (LOPRESSOR) VIAL IV NR (07:06)
[2017-01-31] MEDS ORDERED: LORazepam INJ 2 MG/ML (ATIVAN) VIAL IV PRN (07:15)
[2017-01-31] MEDS ORDERED: HYDROmorphone (DILAUDID) 2 MG/ML VIAL IVP ONE (07:15)
[2017-01-31] MEDS ORDERED: hydrALAZINE (APESOLINE) 20 MG/ML VIAL IV SCH (08:00)
[2017-01-31] MEDS: FLUDROCORTISONE 0.1 MG (FLORINEF) TAB PO SCH (08:58)
[2017-01-31] MEDS: CARBAMAZEPINE 100 MG PO SCH (08:59)
--- NOTE | 2017-01-31 08:59 | Pulmonary Progress Note ---
Subjective Time Seen by Provider: 08:58 Subjective/Events-last exam PT is currently very uncomfortable and needs additional pain management. Exam Exam Vital Signs Date Time Temp Pulse Resp B/P (MAP) Pulse Ox O2 Delivery O2 Flow Rate FiO2 01/31/17 08:00 96 9 179/120 96 Nasal Cannula 2.00 01/31/17 07:00 99 01/31/17 07:00 99 12 167/124 92 Nasal Cannula 2.00 01/31/17 06:37 95 Nasal Cannula 2.00 01/31/17 06:00 107 13 185/133 97 Nasal Cannula 2.00 01/31/17 05:00 104 11 189/128 96 Nasal Cannula 2.00 01/31/17 04:00 96.9 96 11 173/110 96 Nasal Cannula 2.00 01/31/17 04:00 95 Nasal Cannula 2.00 01/31/17 03:00 89 10 163/108 96 Nasal Cannula 2.00 01/31/17 02:34 97 Nasal Cannula 2.00 01/31/17 02:00 80 9 151/97 98 Nasal Cannula 2.00 01/31/17 01:00 91 01/31/17 01:00 93 12 164/111 97 Nasal Cannula 2.00 01/31/17 00:43 95 Nasal Cannula 2.00 01/31/17 00:00 97.5 77 9 125/82 98 Nasal Cannula 2.00 01/30/17 23:00 72 28 126/81 94 Nasal Cannula 2.00 01/30/17 22:38 97 Nasal Cannula 2.00 01/30/17 22:00 72 25 179/85 97 Nasal Cannula 2.00 01/30/17 21:00 70 16 174/78 96 Nasal Cannula 2.00 01/30/17 20:00 95 Nasal Cannula 2.00 01/30/17 20:00 70 17 170/84 94 Nasal Cannula 2.00 01/30/17 19:00 70 21 176/103 96 Nasal Cannula 2.00 01/30/17 19:00 97.9 01/30/17 19:00 95 01/30/17 18:19 96 Nasal Cannula 2.00 01/30/17 18:00 86 10 137/94 98 Nasal Cannula 2.00 01/30/17 17:00 81 9 128/88 97 Nasal Cannula 2.00 01/30/17 16:15 95 Nasal Cannula 2.00 01/30/17 16:05 97.9 Nasal Cannula 2.00 01/30/17 16:00 96 18 163/105 93 Nasal Cannula 2.00 01/30/17 15:00 87 9 153/109 98 Nasal Cannula 2.00 01/30/17 14:34 97 Nasal Cannula 2.00 01/30/17 14:00 88 10 190/126 96 Nasal Cannula 2.00 01/30/17 13:00 84 01/30/17 13:00 82 13 153/103 94 Nasal Cannula 2.00 01/30/17 12:20 98.0 Nasal Cannula 2.00 01/30/17 12:08 95 Nasal Cannula 2.00 01/30/17 11:00 89 11 121/108 98 Nasal Cannula 2.00 01/30/17 10:31 97 Nasal Cannula 2.00 01/30/17 10:00 80 12 130/105 96 Nasal Cannula 2.00 01/30/17 09:00 78 10 149/109 98 Nasal Cannula 2.00 I & O 01/31/17 07:00 Intake Total 4498 ml Output Total 2850 ml Balance 1648 ml General Appearance: Anxious, Mild Distress HEENT: PERRL/EOMI, Pharynx Normal Neck: Full Range of Motion, Supple Respiratory: Chest Non Tender, Crackles, Decreased Breath Sounds Cardiovascular: Tachycardia Capillary Refill: Less Than 3 Seconds Gastrointestinal: normal bowel sounds, non tender, soft, no organomegaly, no pulsatile mass Extremity: Pedal Edema (minimal), Other (leg contractures) Neurologic/Psychiatric: Alert (communicating effectively) Skin: Warm/Dry, Ecchymosis Results Lab Laboratory Tests 01/29/17 11:10 01/30/17 04:35 01/30/17 15:15 01/30/17 22:49 01/31/17 04:10 Assessment/Plan Assessment/Plan Severe sepsis with septic shock -- resolved -Solucortef 100mg IV Q 8 -pt has hx of adrenal insuff -zyvox and Merrem Acute respiratory failure- resoved -change to regular NC -CT of chest reviewed and is negative for PE -D/C hep gtt Dysphagia - improved -pt has swallow eval ordered today. Hx of CVID -receives IVIG as out patient UTI with pseudomonus and enterococcus and recent MRSA -zyvox and Merrem -Change to PO Levaquin, diflucan, and macrobid upon discharge -Diflucan COPD -SVNS, oxygen Hx of anoxic encephalopathy chronic debility wheel chair bound Patient needs more pain control and Ativan for anxiety. I ordered and discussed with RN. Pt is doing much better. She is more awake and complaining of pain. Family is concerned patient will not be comfortable at home. I discussed with [facility] To ensure she has plenty of comfort meds available when needed once she is home. Will also order Fentanyl patch. 45min spent with patient and medical staff discussing plan of care and hospice. Pt will probably be discharged today with hospice. I will have [facility] see patient today. Clinical Quality Measures DVT/VTE Risk/Contraindication: Risk Factor Score Per Nursin RFS Level Per Nursing on Admit: 4+=Very High MYLA CAMARILLO DO Jan 31, 2017 08:59
[2017-01-31] MEDS ORDERED: meTOprolol TARTRATE 25 MG (LOPRESSOR) TABLET PO SCH (09:00)
[2017-01-31] MEDS ORDERED: hydrALAZINE (APESOLINE) 20 MG/ML VIAL IV PRN (09:00)
[2017-01-31] MEDS: TIMOLOL MALEATE 0.5% 5 ML (TIMOPTIC) BTL OS SCH (09:34)
[2017-01-31] MEDS: BRIMONIDINE 0.2% (ALPHAGAN) OPHTH SOLN 5 ML BTL OS SCH (09:35)
[2017-01-31] MEDS: PANTOPRAZOLE 40 MG/10 ML (PROTONIX) VIAL IV SCH (09:40)
[2017-01-31] MEDS: LINEZOLID IVPB 300 ML IV SCH (09:41)
[2017-01-31] MEDS: FLUCONAZOLE 100 MG/50 ML 50 ML IV SCH (10:29)
[2017-01-31] MEDS ORDERED: fentaNYL PATCH 100 MCG (DURAGESIC) TD SCH (10:30)
--- NOTE | 2017-01-31 11:24 | Speech Therapy Progress Note ---
Therapy Progress Note The speech pathologist attempted to re-assess the patient's swallowing function on this date. The patient's and a family friend were present at bedside. Per patient's , the patient had a "rough night and is in a lot of pain." The patient was agreeable to attempt re-assessment ("I'll try."), however, rated her pain a 10.5/10 "everywhere." The patient was repositioned to an upright position in bed. The patient consumed one bite of puree and one straw sip of honey-thick liquid prior to deferring all additional trials due to discomfort. Per RN, the patient was provided pills in puree consistency and did not demonstrate signs/symptoms of aspiration through the evening. Due to the limited evaluation, the speech pathologist recommends trials of puree consistency (puree solid and pudding-thick liquid). The speech pathologist recommends necessary medication be crushed and placed in puree for administration. If the patient discharges to hospice, her diet will be liberalized. The above information was provided to the patient's , who verbalized comprehension. KARY MELGOZA Jan 31, 2017 11:24
--- NOTE | 2017-01-31 11:58 | Discharge Inst-Simple/Standard ---
Discharge Inst-Standard Discharge Medications New, Converted or Re-Newed RX: Other (Dr. Vera took care of the hospice medications) Patient Instructions/Follow Up Plan of Care/Instructions/FU: Home with [facility] Activity as Tolerated: Yes Discharge Diet: Other Diet Planned Outpatient Orders/Ref. Pneu Vac Indicated: Yes SKY KAUR MD Jan 31, 2017 11:58
--- NOTE | 2017-01-31 12:02 | Discharge Summary ---
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 - - (G93.1) Anoxic brain damage, not elsewhere classified - (R13.12) Dysphagia, oropharyngeal phase (G89.4) Chronic pain syndrome - (I10) Essential (primary) hypertension - (F33.8) 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) Anxiety disorder - (K21.9) Gastro-esophageal reflux disease without esophagitis - Discharge Diagnosis -Severe sepsis with Shock (resolved) due to pneumonia, UTI- - acute hypoxic respiratory failure- - hypotension- -Adrenal insuffiency- (D84.9) 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) Chronic obstructive pulmonary disease - (Z16.39) UTI w/ Resistance to other specified antimicrobial drug - (Z86.73) Personal history of transient ischemic attack (TIA), 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) Trigeminal neuralgia - on tegretol (N31.9) 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 - - (G93.1) Anoxic brain damage, not elsewhere classified (R13.12) Dysphagia, oropharyngeal phase - (G89.4) Chronic pain syndrome - (I10) Essential (primary) hypertension - (F33.8) Other recurrent depressive disorders- (F41.9) Anxiety disorder - (K21.9) Gastro-esophageal reflux disease without esophagitis hypokalemia- Reason Hospital Visit 66 yo F with history of anoxic brain injury and resulting wheelchair bound/ paralysis (due to choking on a hot dog in 2009) admitted for acute deteriation - Pt is a resident of [facility] and this AM, pt's nurse reported she became unresponsive and was taken to the ER. She was hypotensive. Yesterday results from her repeat urine culture came back so she was restarted on macrobid. She has an indwelling catheter and recurrent UTIs (usually denoted by AMS). No recent concerns of respiratory issues leading up to this AM. In talking with pt's today he said she had reported earlier in the week that she needed to see her PCP but could not pinpoint what was making her feel bad. No specific complaint. He reports that she was doing alright earlier in the week- communicating well. But this acute unresponsive event was very sudden in onset. Pt had altered mental status until she was take from ER to 4th floor room 27 and the bed was bumped - she became more alert and told her she loved him. 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 Pt also has adrenal insufficiency - so we will stress dose her. Discussion undertaken with the and Shelly- she is DNR. While in the ER- pt was resuscitated with IVF, antibiotics started and placed on vapotherm. She was transferred up to 427 but on evaluation with Dr. Vera- decision was made to transfer to unit for closer monitoring. Last hospital admission 12/08/16 for multidrug resistant UTI- treated with meropenem. Discharge Summary Hospital Course Hospital Course 66 yo female discharged on 01/31/17 to home with [facility]. She will continue her home steroids for her adrenal insufficiency. I suspect she will pass away with a 1-2 days and I discussed this with patient's on day of discharge. He understands. During this hospitalization she was treated for -Severe sepsis with Shock ( resolved) due to pneumonia, UTI- Broad spectrum antibiotics were used including: meropenem, linezolid, fluconazole- IVF fluids and pressors were also utilized initially to keep blood pressure up. - As for patient's acute hypoxic respiratory failure- due to pneumonia- bibasilar- She was placed on vapotherm and her CTA was negative for a pulmonary embolism- so her heparin was stopped. Multiple discussions were held with the family regarding her condition and prognosis which is why ultimately hospice was decided. Patient did experience significant pain and her said when he and his son saw this he was comforted that keeping her comfortable was the right decision by placing her on hospice. She was discharged via ambulance to home. Labs Laboratory Tests 01/30/17 22:49: 01/31/17 04:10: Red Blood Count 3.81L, Hemoglobin 9.2L, Hematocrit 30L, Mean Corpuscular Volume 79L, Mean Corpuscular Hemoglobin 24L, Mean Corpuscular Hemoglobin Concent 31L, Red Cell Distribution Width 19.7H, Neutrophils (%) (Auto) 80H, Potassium Level 3.1L, Blood Urea Nitrogen 5L, Creatinine 0.41L, Glucose Level 148H, Calcium Level 7.7L, Phosphorus Level 1.6L, Magnesium Level 1.7L Procedures None. Discharge Physical Examination Allergies: Coded Allergies: Penicillins (Unverified Allergy, Mild, PT ABLE TO TOLERATE ROCEPHIN, 06/01) oxycodone (Unverified Allergy, Mild, 06/19/06) adhesive (Unverified Allergy, Unknown, 01/06/14) codeine (Verified Allergy, Unknown, 04/19/15) hydrocodone (Verified Allergy, Unknown, 05/31/12) lanolin (Verified Allergy, Unknown, 05/31/12) sulfamethoxazole (Verified Allergy, Unknown, 05/31/12) trimethoprim (Verified Allergy, Unknown, 05/31/12) enoxaparin (Unverified Adverse Reaction, Mild, CHANGES IN MENTATION, ) latex (Unverified Adverse Reaction, Mild, BLADDER INFECTION W/ LATEX CATHETER, 09/23/10) Uncoded Allergies: TEGADERM (Allergy, Mild, RASH, 09/23/10) HEPARIN (Adverse Reaction, Mild, CHANGES IN MENTATION, 09/23/10) Vitals & I&Os Vital Signs Date Time Temp Pulse Resp B/P (MAP) Pulse Ox O2 Delivery O2 Flow Rate FiO2 01/31/17 14:06 97 Nasal Cannula 1.00 01/31/17 13:00 88 10 182/123 01/31/17 04:00 96.9 01/29/17 16:00 35 General Appearance: Alert, Cooperative Respiratory: Other (coarse,wet) Cardiovascular: Regular Rate Abdominal: Soft Extremities: Other (contractures in legs, 1+ pitting edema) Skin: Other (skin breakdown) Psych/Mental Status: Mental Status NL Discharge Home Medications Reviewed and agree with Discharge Medication list on patient's Discharge Instruction sheet Condition at Discharge on hospice, declining Instructions to Patient/Family Please see electronic discharge instructions given to patient. Clinical Quality Measures DVT/VTE Risk/Contraindication: Risk Factor Score Per Nursin RFS Level Per Nursing on Admit: 4+=Very High Comfort Measures/ Type of Care: Hospice Care (Home) ([facility]) SKY KAUR MD Jan 31, 2017 12:02
[2017-02-02] MEDS ORDERED: IMMUNE GLOBULIN GAMMA 10 GM SQ SCH (08:00)
== END 2017-01-31 16:05 | disposition hospice, home (50) | DRG 871 ==
LOC: EDUNIT# 09:36 → ER 09:38 → 4TH 10:13 → ICU 13:30
PROVIDERS: ADMIT Family Medicine; ATTEND Family Medicine
DX: A41.9 Sepsis, unspecified organism (principal); R65.21 Severe sepsis with septic shock; J44.0 Chronic obstructive pulmonary disease with (acute) lower respiratory infection; J18.9 Pneumonia, unspecified organism; I26.99 Other pulmonary embolism without acute cor pulmonale; J96.01 Acute respiratory failure with hypoxia; N39.0 Urinary tract infection, site not specified; R64 Cachexia; D80.3 Selective deficiency of immunoglobulin G [IgG] subclasses; Z66 Do not resuscitate; G47.30 Sleep apnea, unspecified; G93.1 Anoxic brain damage, not elsewhere classified; N31.9 Neuromuscular dysfunction of bladder, unspecified; G50.0 Trigeminal neuralgia; I10 Essential (primary) hypertension; R13.10 Dysphagia, unspecified; K59.09 Other constipation; E27.9 Disorder of adrenal gland, unspecified; H54.3 Unqualified visual loss, both eyes; K21.9 Gastro-esophageal reflux disease without esophagitis; F32.9 Major depressive disorder, single episode, unspecified; F41.9 Anxiety disorder, unspecified; M81.0 Age-related osteoporosis without current pathological fracture; G89.4 Chronic pain syndrome; M24.571 Contracture, right ankle; Z93.50 Unspecified cystostomy status; Z86.73 Personal history of transient ischemic attack (TIA), and cerebral infarction without residual deficits; Z99.81 Dependence on supplemental oxygen; Z16.39 Resistance to other specified antimicrobial drug; T38.0X5A Adverse effect of glucocorticoids and synthetic analogues, initial encounter
CPT/HCPCS: 36415; 71010; 71275; 80048; 80053; 81000; 82040; 82805; 83605; 83735; 83880; 84100; 84132; 84484; 85007; 85025; 85027; 85379; 85610; 85730; 87040; 87077; 87088; 87186; 87324; 87449; 93970; 94640; 94760; 94799; 96361; 96365